=== PATIENT | male | born 1960 | race Caucasian/White ===

== ENCOUNTER → 2018-07-28 | Outpatient (CLI) | payer BC ==
[~2018-07-28] MED LIST: CELE100C PO; DILT180C4 PO; GABA-585 PO; HYDR-2802 PO; MULT1TAB97 PO; TRAM50TA PO
--- NOTE | 2018-07-28 15:50 | KCIC ---
Bilateral lower extremity arterial Doppler dated 07/28/2018. No comparison available. CLINICAL INDICATION: Peripheral vascular disease and leg cramping. Hypertension. Tobacco use. FINDINGS: Grayscale, color-flow and spectral waveform analysis performed to include the arterial tree of both lower extremity. On the right, there is monophasic flow throughout the common femoral artery to the arteries of the right calf. Velocity measurements are somewhat diminished. No focal stenosis is visualized. Tardus parvus flow within the right peroneal artery and right dorsalis pedis. There is diffuse atherosclerotic plaquing. On the left, there is triphasic flow of the common femoral artery and profundus femoris. Biphasic flow at the proximal superficial femoral artery with mild velocity elevation of 190 cm/s. Monophasic flow within the mid to distal superficial femoral artery, popliteal artery and arteries of the left calf. Diffuse atherosclerotic plaquing. IMPRESSION: 1. Monophasic flow throughout the right lower extremity arterial tree with tardus parvus flow in the dorsalis pedis and peroneal arteries of the right calf. This could be related to severe diffuse disease, although a inflow stenosis near the right common iliac artery or external iliac artery is not excluded. If indicated, CT would better evaluate. 2. Monophasic flow within the mid left superficial femoral artery through the calf arteries on the left, consistent with diffuse distal disease. There is mild velocity elevation at the proximal superficial femoral artery which could relate to a focal [id number] grade stenosis. Electronically signed by: Jaciel Louis MD (07/28/2018 3:47 PM) [id number]
== END | disposition home or self-care (01) ==
LOC: KCIC US 14:47
PROVIDERS: ATTEND Family Medicine
DX: I70.293 Other atherosclerosis of native arteries of extremities, bilateral legs (principal); I73.89 Other specified peripheral vascular diseases; I10 Essential (primary) hypertension; F17.200 Nicotine dependence, unspecified, uncomplicated
CPT/HCPCS: 93925

== ENCOUNTER 2019-01-28 21:13 | Inpatient (IN) | payer BC ==
[~2019-01-28] VITALS: Ht 180.3 cm; Wt 79.4 kg
[~2019-01-28 21:13] MED LIST changes: +ASPI81TA50 PO; +CLOP75TA PO; +ESOM40CA PO; +INSU100I13 SQ; +LACT1CAP2 PO; +MELO15TA23 PO
[2019-01-28 22:45] VITALS: BP 148/81
--- NOTE | 2019-01-28 22:45 | NUR ---
Patient admitted from [facility] ER to room 436 via ambulance cart. Admitting diagnosis: abdominal mass(fluid filled). Patient stated he thought he pulled a muscle at work. Patient c/o abdominal pain for 1 week. Mass on abdominal wall getting larger. Increase in pain noted. Patient had a CT Scan of abdomen today and CT Scan was positive for fluid filled mass. Mass can be palpated and is painful. Consult with Dr. Cole ordered. Will continue to monitor.
[2019-01-29] MEDS ORDERED: MULT-154 PO (00:04)
[2019-01-29] MEDS ORDERED: DILT240C33 PO (00:04)
[2019-01-29] MEDS ORDERED: VARE1TAB21 PO (00:04)
[2019-01-29] MEDS ORDERED: TRAM50TA PO (00:04)
[2019-01-29] MEDS ORDERED: IBUP-1060 PO (00:04)
[2019-01-29] MEDS: IV NORMAL SALINE 1000ML BAG 1,000 ML IV SCH ×2 (01:16→15:20)
[2019-01-29] MEDS: HYDROcodone/APAP 5/325MG 1 TAB TABLET PO PRN ×5 (01:17→23:06)
[2019-01-29] MEDS ORDERED: INFLUENZA VAX SCREEN BY RX. MC PRN (02:00)
[2019-01-29 03:00] VITALS: BP 143/72
[2019-01-29 07:00] VITALS: BP 134/70
[2019-01-29] MEDS ORDERED: PANTOPRAZOLE 40 MG TABLET.DR. PO SCH (07:30)
[2019-01-29] MEDS ORDERED: ASPIRIN ENTERIC COATED 81 MG TABLET.DR. PO SCH (08:00)
[2019-01-29] MEDS ORDERED: FLU VAX QS 2019-20 (36MOS+)/PF 0.5 ML SYRINGE. VAX IM ONE (09:00)
[2019-01-29] MEDS ORDERED: MELOXICAM 7.5 MG TABLET PO SCH (09:00)
[2019-01-29] MEDS ORDERED: CLOPIDOGREL BISULFATE 75 MG TABLET PO SCH (09:00)
[2019-01-29 11:00] VITALS: BP 145/77
[2019-01-29] MEDS ORDERED: traMADol 50 MG TABLET PO PRN (11:00)
--- NOTE | 2019-01-29 11:41 | PDOC2 ---
CONSULT Date of Consult Date of Consult DATE: 01/29/19 TIME: 11:36 Reason for Consult Reason for Consult: abd mass Referring Physician Referring Physician: Dr. Alejandro Identification/Chief Complaint Chief Complaint abd pain and mass Source Source: Chart review, Patient History of Present Illness Reason for Visit: 58 yo M with c/o 1 week hx of epigastric mass, after lifting something heavy at work. Pt notes pain in the area, but otherwise doing OK. Past Medical History Cardiovascular: HTN Pulmonary: COPD CENTRAL NERVOUS SYSTEM: TIA GI: Diverticulosis, GERD, Other (pancreatitis with stent) Hepatobiliary: Cholelithiasis, Other Psych: Other Musculoskeletal: Osteoarthritis Rheumatologic: No pertinent hx Infectious disease: No pertinent hx Renal/: No pertinent hx Endocrine: Diabetes Past Surgical History Past Surgical History: Cholecystectomy, Total hip replacement, Total knee replacement, Other Family History Family History: Hypertension Social History <1 pack per day ALCOHOL: heavy Drugs: None Lives: with Family Current Medications Current Medications Current Medications Acetaminophen/ Hydrocodone Bitart (Lortab 5/325) 1 tab PRN Q4HRS PRN PO MODERATE-SEVERE PAIN Last administered on 01/29/19at 10:20; Start 01/28/19 at 23:45 Sodium Chloride 1,000 ml @ 75 mls/hr [id number] IV Last administered on 01/29/19at 01:16; Start 01/28/19 at 23:45 Aspirin (Ecotrin) 81 mg DAILYWBKFT PO ; Start 01/29/19 at 08:00; Stop 01/29/19 at 00:09; Status DC Clopidogrel Bisulfate (Plavix) 75 mg DAILY PO ; Start 01/29/19 at 09:00; Stop 01/29/19 at 00:09; Status DC Pantoprazole Sodium (Protonix) 40 mg DAILYAC PO ; Start 01/29/19 at 07:30; Stop 01/29/19 at 00:09; Status DC Meloxicam (Mobic) 15 mg DAILY PO ; Start 01/29/19 at 09:00; Stop 01/29/19 at 00:09; Status DC Info (FLU VACCINE SCREEN per RX) 1 each PRN 1X PRN MC SEE COMMENTS; Start 01/29/19 at 02:00; Status UNV Influenza Virus Vaccine Quadrival (Afluria Quad 2019-20 (3yr Up) Syringe) 0.5 ml ONCE ONCE VAX IM Last administered on 01/29/19at 09:07; Start 01/29/19 at 09:00; Stop 01/29/19 at 09:01; Status DC Diltiazem HCl (Cardizem 24hr Cd) 240 mg DAILY PO ; Start 01/29/19 at 12:00 Tramadol HCl (Ultram) 50 mg PRN Q6HRS PRN PO MILD PAIN 1-3; Start 01/29/19 at 11:00 Multivitamins (Thera M Plus) 1 tab DAILY PO ; Start 01/29/19 at 12:00 Active Scripts Active Reported One-A-Day Essential (Multivitamin) 1 Each Tablet 1 Tab PO DAILY 30 Days Tramadol Hcl 50 Mg Tablet 50 Mg PO Q6HRS PRN Ibuprofen 800 Mg Tablet 800 Mg PO PRN Q6HRS PRN Diltiazem 24Hr Cd (Diltiazem HCl) 240 Mg Cap.er.24h 1 Cap PO DAILY 30 Days Chantix (Varenicline Tartrate) 1 Mg Tablet 1 Mg PO BID Lantus Solostar (Insulin Glargine,Hum.rec.anlog) 100 Unit/1 Ml Insuln.pen 20 Unit SQ DAILY Aspir-Low (Aspirin) 81 Mg Tablet.dr 1 Tab PO DAILY Nexium Capsule (Esomeprazole Magnesium) 40 Mg Capsule.dr 1 Cap PO DAILY Clopidogrel (Clopidogrel Bisulfate) 75 Mg Tablet 1 Tab PO DAILY Meloxicam 15 Mg Tablet 1 Tab PO DAILY Allergies Allergies: Coded Allergies: lisinopril (Verified Allergy, Intermediate, 09/17/18) ROS Gastrointestinal: Yes Abdominal Pain Physical Exam General: Alert, Oriented X3, Cooperative, No acute distress HEENT: Atraumatic Abdomen: Other (well healed incision, fullness supraumbilical) Extremities: No clubbing, No cyanosis Skin: No rashes, No breakdown Neuro: Normal speech, Sensation intact Psych/Mental Status: Mental status NL, Mood NL Vitals VITALS Vital Signs Date Time Temp Pulse Resp B/P (MAP) Pulse Ox O2 Delivery O2 Flow Rate FiO2 01/29/19 11:00 98.2 89 18 145/77 (99) 95 Room Air 98.2 Labs Labs Laboratory Tests Test 01/29/19 07:41 01/29/19 11:07 Glucose (Fingerstick) 76 mg/dL (70-99) 116 mg/dL (70-99) Laboratory Tests Test 01/29/19 07:41 01/29/19 11:07 Glucose (Fingerstick) 76 mg/dL (70-99) 116 mg/dL (70-99) Images Images Unable to review diagnostic imaging report. Verbally reported at abd mass. Assessment/Plan Assessment/Plan abd mass pt with hx of complicated cholecystitis, s/p lap cholecystectomy with cholangiogram. Pt with hx of pancreatitis with multiple pseudocyst and complicated pancreatitis, suspect secondary to Etoh. 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 Hx would be concerning for hernia. Will repeat CT for accurate reading and planning. Thanks for consult! JODIE RUIZ MD Jan 29, 2019 11:41
--- NOTE | 2019-01-29 13:15 | HP ---
ADMIT DATE: 01/28/2019 HISTORY OF PRESENT ILLNESS: The patient is a 58-year-old male patient who presented to the Emergency Room of [facility] yesterday as apparently he has been complaining of worsening abdominal pain for the past week and half. He was lifting, felt a strain in the rib a week and half ago. He was doing better until over the last weekend when he had to go back to work and was lifting and moving again. Over the past several days, he has noted a lump in his abdomen that has been increasing in size. He saw his primary care physician, apparently had a CT scan performed, diagnostic imaging by [facility], which showed that he had big fluid filled mass that was 4 x 10 x 6 and 3 x 6 x 5 going into the abdominal wall that could be biliary leak. He was evaluated in the Emergency Room and was basically transferred to [facility] with possible bile leak as he has undergone laparoscopic cholecystectomy about 4 months ago. The patient denied any nausea or vomiting. Denied any diarrhea or constipation. Denied any trauma or fall. PAST MEDICAL HISTORY: Significant for type 2 diabetes, hypertension, and chronic obstructive pulmonary disease. PAST SURGICAL HISTORY: Significant for laparoscopic cholecystectomy, reconstruction of the right knee joint. He has also a right total hip arthroplasty and right biceps tendon attachment. ALLERGIES: He is allergic to LISINOPRIL, he developed angioneurotic edema. MEDICATIONS: He is currently on following medications: He is on Chantix 1 tablet once a day. He is on Plavix 75 mg once a day, diltiazem 240 mg once a day, ibuprofen 800 mg every 2-4 hours a day, meloxicam 15 mg once a day, tramadol 50 mg once a day, Nexium 40 mg once a day. He is on Lantus insulin 20 units at bedtime, multivitamin 1 tablet once a day. FAMILY HISTORY: He has 1 younger brother who has muscular dystrophy, two sisters who are older and seemingly healthy. Father at the age of 78 because of metastatic cancer of unknown primary. Mother at the age of 72 after she survived breast cancer for 28 years and then it recurred and became metastatic. SOCIAL HISTORY: He is , has 3 sons and 1 daughter. He smokes 10 cigarettes a day. He drinks alcohol only on Sundays while watching football games, drinks about 6 cans of beer. He used to work for [employer] and now works for [employer]. REVIEW OF SYSTEMS: The patient denied any blurring of vision, cataract, glaucoma or macular degeneration. Denied any earache, tinnitus or sensorineural deafness. Denied any nosebleeds, stuffy nose or postnasal drip. Denied any sore throat, sore tongue, toothache, hoarseness of voice or difficulty swallowing. Denied any nausea or vomiting. Did complain of abdominal pain. Denied any diarrhea or constipation. Denied any hematemesis, melena or hematochezia. Denied any dysuria, frequency or hematuria. Denied any chest pain, shortness of breath, orthopnea, paroxysmal nocturnal dyspnea. Denied any cough, phlegm or hemoptysis. PHYSICAL EXAMINATION: GENERAL: On arrival to the Emergency Room, he looked well and was clearly in no apparent respiratory distress, slightly pale, not jaundiced, cyanosis or thyromegaly. No jugular venous distention or limb edema. VITAL SIGNS: His heart rate was 67, blood pressure was 140/70, temperature 98.2, respiratory rate 20, and oxygen saturation was 96% on room air. HEAD, EYES, EARS, NOSE AND THROAT: Showed normocephalic, atraumatic. NECK: Supple. HEART: Showed normal first and second heart sounds. No gallop or murmur. CHEST: Clear to auscultation. No crepitation or rhonchi. ABDOMEN: Slightly distended with palpable tenderness in the epigastric area. There is no overlying redness, not fluctuant. There is no guarding or rigidity. Bowel sounds are normal. NEUROLOGIC: He is awake, alert, responding appropriately. All cranial nerves intact. EXTREMITIES: He moves extremities without difficulty. He ambulates without assistance or assistive devices. LABORATORY AND DIAGNOSTIC DATA: His lab work showed a white cell count 12,700, hemoglobin 9.3, hematocrit 28, MCV 91, and platelet count of 509,000. His chemistry showed a serum sodium 134, potassium 3.7, chloride 98, bicarbonate 24, anion gap of 12, BUN 15, creatinine 0.8, estimated GFR was 99 mL per minute, his glucose 114, calcium was 9.1, magnesium was 1.6. Total bilirubin, AST, ALT, alkaline phosphatase were normal. Total protein 7.4, albumin was 2.8. His prothrombin time was 10.4, INR 1, aPTT was 37. IMPRESSION AND PLAN: He apparently had a CT scan done, which showed a mass that is consistent with probably bile leak. The patient was transferred to [facility] to consult the surgical team and was continued on all his medication. AUSTIN ESPINOZA MD DR: ANAHY/niranjan JOB#: [id number] / [id number]
[2019-01-29 15:00] VITALS: BP 170/76
[2019-01-29] MEDS ORDERED: IOHEXOL 240 MG/ML 50ML VIAL. PO ONE (15:00)
[2019-01-29] MEDS ORDERED: CONTRAST GIVEN. MC PRN (15:00)
[2019-01-29] MEDS ORDERED: IOHEXOL 300 MG/ML 100ML VIAL. IV ONE (15:00)
[2019-01-29 15:20] LABS: CALCIUM 8.8 mg/dL (8.5-10.1); CREATININE 0.7 mg/dL (0.7-1.3); GFR 115.8
[2019-01-29] MEDS: MORPHINE SULFATE 4 MG/ML VIAL. IV PRN ×2 (15:20→19:45)
[2019-01-29] MEDS: NICOTINE 14MG PATCH. TD SCH (15:21)
--- NOTE | 2019-01-29 17:01 | RAD ---
Exam performed: CT abdomen and pelvis with contrast HISTORY: Abdominal mass. DATE OF SERVICE: 01/29/2019. COMPARISON: CT abdomen and pelvis from September 15, 2018. TECHNIQUE: Contiguous helical acquisitions are obtained through the abdomen and pelvis during intravenous administration of 75 cc of Omnipaque 300. Sagittal and coronal reformatted images are obtained and reviewed. Findings: Minimal bibasilar atelectasis. The visualized heart is normal. Liver and spleen appear normal. Cholecystectomy. Diffuse pancreatic calcification consistent with known chronic calcific pancreatitis. There is a cystic lesion in the region of pancreatic head, unchanged since prior exams. No peripancreatic inflammatory changes are seen. Biliary and pancreatic stents redemonstrated. There is development of a fluid collection inferior to the liver which herniates through a defect in the anterior abdominal wall. The exact size of this collection is difficult to measure, however measures to the order of 8.8 cm transverse by 6.2 cm AP x6.0 cm cranial caudal dimension. Diffuse thickening of the stomach appiah noted. Both adrenal glands and bilateral kidneys are normal in size with symmetric excretion of contrast via both kidneys. Small and large bowel loops are nondilated and unremarkable. Appendix is contrast-filled. Urinary bladder is distended. Sigmoid diverticulosis. Streak artifact emanating from right hip arthroplasty. Prostatomegaly with calcifications. No pelvic fluid collection is seen. Spondylotic changes with grade 1 anterolisthesis of L4 over L5. Degenerative disease at L5-S1. IMPRESSION: Findings consistent with chronic calcific pancreatitis redemonstrated with biliary and pancreatic stent in place. Cystic mass in relation to the pancreatic tail consistent with a pancreatic pseudocyst is unchanged. Interval development of a fluid collection in the infrahepatic region which herniates through the abdominal wall defect, perhaps a new pseudocyst . Sigmoid diverticulosis without acute diverticulitis. PQRS Compliance Statement: One or more of the following individualized dose reduction techniques were utilized for this examination: 1. Automated exposure control 2. Adjustment of the mA and/or kV according to patient size 3. Use of iterative reconstruction technique Electronically signed by: Santa Martinez MD (01/29/2019 4:58 PM) [facility]
--- NOTE | 2019-01-29 17:18 | NUR ---
Dr. Cole notified of CT abd results, new diet orders received.
[2019-01-29] MEDS: MULTIVITAMIN with MINERAL TABLET. PO SCH (17:27)
[2019-01-29 19:25] VITALS: BP 135/78
[2019-01-29 23:25] VITALS: BP 156/75
[2019-01-30] MEDS: MORPHINE SULFATE 4 MG/ML VIAL. IV PRN ×3 (02:47→14:56)
[2019-01-30] MEDS: IV NORMAL SALINE 1000ML BAG 1,000 ML IV SCH ×2 (02:51→16:01)
[2019-01-30 03:13] VITALS: BP 154/77
[2019-01-30] MEDS: HYDROcodone/APAP 5/325MG 1 TAB TABLET PO PRN ×2 (05:06→11:04)
[2019-01-30 05:13] LABS: HEMATOCRIT 30.6 % (39.0-53.0); RED BLOOD COUNT 3.43 x10^6/uL (4.30-5.70); RED CELL DISTRIBUTION WIDTH 16.1 % (11.5-14.5); WHITE BLOOD COUNT 12.9 x10^3/uL (4.0-11.0)
[2019-01-30 05:53] LABS: ALBUMIN 2.6 g/dL (3.4-5.0); ALBUMIN/GLOBULIN RATIO 0.5 (1.0-1.7); CALCIUM 8.9 mg/dL (8.5-10.1); CREATININE 0.8 mg/dL (0.7-1.3); GFR 99.3; POTASSIUM 4.1 mmol/L (3.5-5.1); TOTAL BILIRUBIN 0.4 mg/dL (0.2-1.0)
[2019-01-30 07:29] VITALS: BP 160/76
[2019-01-30] MEDS: MULTIVITAMIN with MINERAL TABLET. PO SCH (08:52)
[2019-01-30] MEDS: NICOTINE 14MG PATCH. TD SCH (08:52)
[2019-01-30 11:00] VITALS: BP 152/79
--- NOTE | 2019-01-30 12:51 | PN ---
DATE: 01/30/2019 SUBJECTIVE: The patient is resting, sitting, propped up in bed, having his clear liquid breakfast. On questioning him, continued to complain of pain. His CT scan of the abdomen and pelvis showed that he has a finding consistent with chronic calcific pancreatitis demonstrated with biliary and pancreatic stents in place, a cystic mass in relation to the pancreatic tail consistent with pancreatic pseudocyst is unchanged. Interval development of fluid collection in the intrahepatic region which herniates through the abdominal wall defect but had some new pseudocysts, sigmoid diverticulosis without acute diverticulitis. PHYSICAL EXAMINATION: GENERAL: When I examined him today, he was sitting, propped up in bed in no apparent distress. No pallor, jaundice, cyanosis, or thyromegaly. No jugular venous distention. No lower limb edema. VITAL SIGNS: His heart rate was 84, blood pressure was 160/76, temperature was 98.4, respiratory rate 20, and oxygen saturation was 93% on room air. HEAD, EYES, EARS, NOSE, AND THROAT: Normocephalic, atraumatic. NECK: Supple. HEART: Showed normal first and second heart sounds. No gallop or murmur. CHEST: Shows central trachea, equal bilateral expansion, air entry, vesicular breath sounds. No crepitation or rhonchi. ABDOMEN: Distended with a palpable mass that is tender in the epigastric area. There is no overlying erythema. There is no tenderness in the rest of the abdomen. Bowel sounds are normal. NEUROLOGIC: He is awake, alert, responding appropriately. All cranial nerves intact. He moves extremities without difficulty. LABORATORY DATA: As of this morning showed a white cell count 12,900, hemoglobin 10, hematocrit 30, MCV 89, and platelet count 545,000. Serum sodium was 135, potassium 4.1, chloride 97, bicarbonate 29, anion gap of 9, BUN 7, creatinine 0.8, estimated GFR was 99 mL per minute, his glucose was 128, calcium was 8.9. Total bilirubin, AST, ALT, alkaline phosphatase were normal. Total protein was 8, albumin was 2.6. ASSESSMENT: 1. Abdominal pain with a palpable mass with a CT scan showing that there is a mass in the intrahepatic area herniating through the defect in the abdominal wall but the radiologist's impression is that another pseudocyst, has chronic pancreatitis with pseudocyst in the pancreatic tail. 2. Other medical problems include: A. Type 2 diabetes. B. Hypertension. C. Chronic obstructive pulmonary disease. Apparently, the patient has biliary and pancreatic stents. PLAN: To continue with his current medication. Continue with pain management, antiemetic, and nicotine patch for nicotine dependence. His white cell count was high. I do not know whether this is an infected cyst, and I will discuss with Dr. Cole whether interventional radiology aspiration of the mass and/or consulting Infectious Disease is warranted. AUSTIN ESPINOZA MD DR: ANAHY/niranjan JOB#: [id number] / [id number]
--- NOTE | 2019-01-30 13:51 | PDOC ---
SURGICAL PROGRESS NOTE Subjective Pt with c/o mild pain intermittently, mary ellen PO Vital Signs Vital Signs Date Time Temp Pulse Resp B/P (MAP) Pulse Ox O2 Delivery O2 Flow Rate FiO2 01/30/19 11:04 Room Air 01/30/19 11:00 98.3 84 20 152/79 (103) 96 98.3 I&O Intake and Output 01/30/19 07:00 Intake Total 840 ml Balance 840 ml Intake Oral 840 ml # Voids 3 General: Alert, Oriented X3, Cooperative, No acute distress Abdomen: Other (palpable, mobile mass epigatric) Labs Laboratory Tests Test 01/29/19 07:41 01/29/19 11:07 01/29/19 14:55 01/29/19 16:19 Glucose (Fingerstick) 76 mg/dL (70-99) 116 mg/dL (70-99) 100 mg/dL (70-99) Sodium Level 133 mmol/L (136-145) Potassium Level 4.0 mmol/L (3.5-5.1) Chloride Level 99 mmol/L (98-107) Carbon Dioxide Level 29 mmol/L (21-32) Anion Gap 5 (6-14) Blood Urea Nitrogen 8 mg/dL (8-26) Creatinine 0.7 mg/dL (0.7-1.3) Estimated GFR (Cockcroft-Gault) 115.8 Glucose Level 96 mg/dL (70-99) Calcium Level 8.8 mg/dL (8.5-10.1) Test 01/29/19 20:51 01/30/19 04:40 01/30/19 07:33 01/30/19 11:57 Glucose (Fingerstick) 143 mg/dL (70-99) 127 mg/dL (70-99) 135 mg/dL (70-99) White Blood Count 12.9 x10^3/uL (4.0-11.0) Red Blood Count 3.43 x10^6/uL (4.30-5.70) Hemoglobin 10.0 g/dL (13.0-17.5) Hematocrit 30.6 % (39.0-53.0) Mean Corpuscular Volume 89 fL (79-100) Mean Corpuscular Hemoglobin 29 pg (25-35) Mean Corpuscular Hemoglobin Concent 33 g/dL (31-37) Red Cell Distribution Width 16.1 % (11.5-14.5) Platelet Count 545 x10^3/uL (140-400) Sodium Level 135 mmol/L (136-145) Potassium Level 4.1 mmol/L (3.5-5.1) Chloride Level 97 mmol/L (98-107) Carbon Dioxide Level 29 mmol/L (21-32) Anion Gap 9 (6-14) Blood Urea Nitrogen 7 mg/dL (8-26) Creatinine 0.8 mg/dL (0.7-1.3) Estimated GFR (Cockcroft-Gault) 99.3 BUN/Creatinine Ratio 9 (6-20) Glucose Level 128 mg/dL (70-99) Calcium Level 8.9 mg/dL (8.5-10.1) Total Bilirubin 0.4 mg/dL (0.2-1.0) Aspartate Amino Transf (AST/SGOT) 16 U/L (15-37) Alanine Aminotransferase (ALT/SGPT) 13 U/L (16-63) Alkaline Phosphatase 79 U/L (46-116) Total Protein 8.0 g/dL (6.4-8.2) Albumin 2.6 g/dL (3.4-5.0) Albumin/Globulin Ratio 0.5 (1.0-1.7) Laboratory Tests Test 01/29/19 14:55 01/29/19 16:19 01/29/19 20:51 01/30/19 04:40 Sodium Level 133 mmol/L (136-145) 135 mmol/L (136-145) Potassium Level 4.0 mmol/L (3.5-5.1) 4.1 mmol/L (3.5-5.1) Chloride Level 99 mmol/L (98-107) 97 mmol/L (98-107) Carbon Dioxide Level 29 mmol/L (21-32) 29 mmol/L (21-32) Anion Gap 5 (6-14) 9 (6-14) Blood Urea Nitrogen 8 mg/dL (8-26) 7 mg/dL (8-26) Creatinine 0.7 mg/dL (0.7-1.3) 0.8 mg/dL (0.7-1.3) Estimated GFR (Cockcroft-Gault) 115.8 99.3 Glucose Level 96 mg/dL (70-99) 128 mg/dL (70-99) Calcium Level 8.8 mg/dL (8.5-10.1) 8.9 mg/dL (8.5-10.1) Glucose (Fingerstick) 100 mg/dL (70-99) 143 mg/dL (70-99) White Blood Count 12.9 x10^3/uL (4.0-11.0) Red Blood Count 3.43 x10^6/uL (4.30-5.70) Hemoglobin 10.0 g/dL (13.0-17.5) Hematocrit 30.6 % (39.0-53.0) Mean Corpuscular Volume 89 fL (79-100) Mean Corpuscular Hemoglobin 29 pg (25-35) Mean Corpuscular Hemoglobin Concent 33 g/dL (31-37) Red Cell Distribution Width 16.1 % (11.5-14.5) Platelet Count 545 x10^3/uL (140-400) BUN/Creatinine Ratio 9 (6-20) Total Bilirubin 0.4 mg/dL (0.2-1.0) Aspartate Amino Transf (AST/SGOT) 16 U/L (15-37) Alanine Aminotransferase (ALT/SGPT) 13 U/L (16-63) Alkaline Phosphatase 79 U/L (46-116) Total Protein 8.0 g/dL (6.4-8.2) Albumin 2.6 g/dL (3.4-5.0) Albumin/Globulin Ratio 0.5 (1.0-1.7) Test 01/30/19 07:33 01/30/19 11:57 Glucose (Fingerstick) 127 mg/dL (70-99) 135 mg/dL (70-99) I have reviewed the following Ct with multiple pseudocysts, with one eroding through abd wall Problem List pancreatitis pt is strongly encouraged to avoid Etoh will MRCP in AM to evaluate biliary system and stents will consult GI regarding pancreatitis and possible stent removal will ask IR to consider biopsy versus aspiration unlikely that surgical intervention would go well, given pancreatitis and pseudocyst recurrence rate. JODIE RUIZ MD Jan 30, 2019 13:51
[2019-01-30 15:00] VITALS: BP_SYST 107; BP_SYST 155; BP_DIAS 59; BP_DIAS 69
[2019-01-30] MEDS: HYDROmorphone 2 MG/ML VIAL IV PRN ×2 (16:01→19:46)
[2019-01-30 19:25] VITALS: BP 155/76
[2019-01-30 23:20] VITALS: BP 141/73
[2019-01-31] VITALS (11 sets, daily range): BP systolic 130–168; BP diastolic 61–77
[2019-01-31] MEDS: HYDROmorphone 2 MG/ML VIAL IV PRN ×7 (00:10→21:34)
[2019-01-31] MEDS: IV NORMAL SALINE 1000ML BAG 1,000 ML IV SCH ×2 (00:11→14:45)
[2019-01-31 07:09] LABS: HEMATOCRIT 28.4 % (39.0-53.0); HEMOGLOBIN 9.4 g/dL (13.0-17.5); RED BLOOD COUNT 3.2 x10^6/uL (4.30-5.70); RED CELL DISTRIBUTION WIDTH 15.8 % (11.5-14.5); WHITE BLOOD COUNT 14.8 x10^3/uL (4.0-11.0)
[2019-01-31 07:30] LABS: ALBUMIN 2.5 g/dL (3.4-5.0); ALBUMIN/GLOBULIN RATIO 0.5 (1.0-1.7); CALCIUM 8.6 mg/dL (8.5-10.1); CREATININE 0.6 mg/dL (0.7-1.3); GFR 138.4; POTASSIUM 3.8 mmol/L (3.5-5.1); TOTAL BILIRUBIN 0.4 mg/dL (0.2-1.0); TOTAL PROTEIN 7.5 g/dL (6.4-8.2)
--- NOTE | 2019-01-31 08:23 | PN ---
DATE: 01/31/2019 SUBJECTIVE: The patient is resting slightly propped up in bed, in no apparent distress, awake, alert, stated that his pain is much better controlled after we switched him to hydromorphone. Denied any nausea or vomiting. He is n.p.o. as he is scheduled for MRCP as well as ultrasound-guided aspiration of the abdominal abscess. PHYSICAL EXAMINATION: GENERAL: When I saw him this morning, he looked well and was clearly in no apparent respiratory distress, slightly pale, not jaundiced, cyanosed or thyromegaly. No jugular venous distention. No limb edema. VITAL SIGNS: His heart rate was 81, blood pressure 145/63, temperature was 99.1, respiratory rate was 18, and oxygen saturation was 92% on room air. HEAD, EYES, EARS, NOSE AND THROAT: Showed normocephalic, atraumatic. NECK: Supple. HEART: Showed normal first and second heart sounds with no gallop or murmur. CHEST: Clear to auscultation. No crepitation or rhonchi. ABDOMEN: Distended, soft, nontender with a mass in the epigastric area, it is tender to touch. NEUROLOGIC: He is awake, alert, responding appropriately. All cranial nerves are intact. He moves extremities without difficulty. His intake over the last 24 hours was 814. No output was recorded. LABORATORY DATA: His lab work this morning showed a white cell count 14,800; hemoglobin 9.4; hematocrit 28; MCV 89 and platelet count 540,000. Serum sodium 133, potassium 3.8, chloride 96, bicarbonate 28, anion gap of 9, BUN 8, creatinine 0.6, estimated GFR was 138 mL per minute. His glucose was 138, calcium was 8.6. Total bilirubin, AST, ALT, alkaline phosphatase were normal. His total protein 7.5, albumin was 2.5. ASSESSMENT: Abdominal pain and a palpable mass. The CT scan showing that there is a mass in the subhepatic area herniating through the defect in the abdominal wall. 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 Other medical problems include: A. Type 2 diabetes mellitus. B. Hypertension. C. Chronic obstructive pulmonary disease. D. The patient has pancreatic and biliary stents. E. Alcoholism. F. Continued nicotine use disorder. PLAN: Apparently, the patient is scheduled for an MRCP as well as perhaps ultrasound-guided aspiration of the abdominal abscess versus pseudocyst. AUSTIN ESPINOZA MD DR: ANAHY/niranjan JOB#: [id number] / [id number]
--- NOTE | 2019-01-31 08:31 | PDOC ---
Provider Note Provider Note IR NOTE Asked to see patient in regards to anterior abdominal wall and perihepatic fluid collections. CT shows a multiloculated collection anterior and inferior to the left liver, and falciform ligament extending into the anterior abdominal wall. The collection does not appear to be continguous with the pancreas. There are changes of chronic pancreatitis with atrophy, calcification, and a chronic appearing pseudocyst in the panc tail. A metallic biliary sent and a pancreatic stent are in place. Bili is normal. Alk phos is normal. WBC mildly elevated. Will plan on aspiration with analysis and culture of the fluid collection. If there is infection, drainage will be needed. LYNDA CERON MD Jan 31, 2019 08:31
--- NOTE | 2019-01-31 08:37 | PDOC ---
NIKOLAY DURAN ENVIRONMENTAL ENGINEERING INTERN 01/31/19 0837: SURGICAL PROGRESS NOTE Subjective some upper abd pain Vital Signs Vital Signs Date Time Temp Pulse Resp B/P (MAP) Pulse Ox O2 Delivery O2 Flow Rate FiO2 01/31/19 08:18 Room Air 01/31/19 04:56 20 92 01/31/19 03:11 99.1 81 145/63 (90) 99.1 I&O Intake and Output 01/31/19 07:00 Intake Total 240 ml Balance 240 ml Intake Oral 240 ml # Voids 2 General: Alert, Cooperative Abdomen: Soft, Other (ttp upper abd) Labs Laboratory Tests Test 01/29/19 11:07 01/29/19 14:55 01/29/19 16:19 01/29/19 20:51 Glucose (Fingerstick) 116 mg/dL (70-99) 100 mg/dL (70-99) 143 mg/dL (70-99) Sodium Level 133 mmol/L (136-145) Potassium Level 4.0 mmol/L (3.5-5.1) Chloride Level 99 mmol/L (98-107) Carbon Dioxide Level 29 mmol/L (21-32) Anion Gap 5 (6-14) Blood Urea Nitrogen 8 mg/dL (8-26) Creatinine 0.7 mg/dL (0.7-1.3) Estimated GFR (Cockcroft-Gault) 115.8 Glucose Level 96 mg/dL (70-99) Calcium Level 8.8 mg/dL (8.5-10.1) Test 01/30/19 04:40 01/30/19 07:33 01/30/19 11:57 01/30/19 16:53 White Blood Count 12.9 x10^3/uL (4.0-11.0) Red Blood Count 3.43 x10^6/uL (4.30-5.70) Hemoglobin 10.0 g/dL (13.0-17.5) Hematocrit 30.6 % (39.0-53.0) Mean Corpuscular Volume 89 fL (79-100) Mean Corpuscular Hemoglobin 29 pg (25-35) Mean Corpuscular Hemoglobin Concent 33 g/dL (31-37) Red Cell Distribution Width 16.1 % (11.5-14.5) Platelet Count 545 x10^3/uL (140-400) Sodium Level 135 mmol/L (136-145) Potassium Level 4.1 mmol/L (3.5-5.1) Chloride Level 97 mmol/L (98-107) Carbon Dioxide Level 29 mmol/L (21-32) Anion Gap 9 (6-14) Blood Urea Nitrogen 7 mg/dL (8-26) Creatinine 0.8 mg/dL (0.7-1.3) Estimated GFR (Cockcroft-Gault) 99.3 BUN/Creatinine Ratio 9 (6-20) Glucose Level 128 mg/dL (70-99) Calcium Level 8.9 mg/dL (8.5-10.1) Total Bilirubin 0.4 mg/dL (0.2-1.0) Aspartate Amino Transf (AST/SGOT) 16 U/L (15-37) Alanine Aminotransferase (ALT/SGPT) 13 U/L (16-63) Alkaline Phosphatase 79 U/L (46-116) Total Protein 8.0 g/dL (6.4-8.2) Albumin 2.6 g/dL (3.4-5.0) Albumin/Globulin Ratio 0.5 (1.0-1.7) Glucose (Fingerstick) 127 mg/dL (70-99) 135 mg/dL (70-99) 130 mg/dL (70-99) Test 01/30/19 20:45 01/31/19 06:20 01/31/19 07:30 Glucose (Fingerstick) 147 mg/dL (70-99) 136 mg/dL (70-99) White Blood Count 14.8 x10^3/uL (4.0-11.0) Red Blood Count 3.20 x10^6/uL (4.30-5.70) Hemoglobin 9.4 g/dL (13.0-17.5) Hematocrit 28.4 % (39.0-53.0) Mean Corpuscular Volume 89 fL (79-100) Mean Corpuscular Hemoglobin 29 pg (25-35) Mean Corpuscular Hemoglobin Concent 33 g/dL (31-37) Red Cell Distribution Width 15.8 % (11.5-14.5) Platelet Count 540 x10^3/uL (140-400) Sodium Level 133 mmol/L (136-145) Potassium Level 3.8 mmol/L (3.5-5.1) Chloride Level 96 mmol/L (98-107) Carbon Dioxide Level 28 mmol/L (21-32) Anion Gap 9 (6-14) Blood Urea Nitrogen 8 mg/dL (8-26) Creatinine 0.6 mg/dL (0.7-1.3) Estimated GFR (Cockcroft-Gault) 138.4 BUN/Creatinine Ratio 13 (6-20) Glucose Level 138 mg/dL (70-99) Calcium Level 8.6 mg/dL (8.5-10.1) Total Bilirubin 0.4 mg/dL (0.2-1.0) Aspartate Amino Transf (AST/SGOT) 18 U/L (15-37) Alanine Aminotransferase (ALT/SGPT) 17 U/L (16-63) Alkaline Phosphatase 76 U/L (46-116) Total Protein 7.5 g/dL (6.4-8.2) Albumin 2.5 g/dL (3.4-5.0) Albumin/Globulin Ratio 0.5 (1.0-1.7) Laboratory Tests Test 01/30/19 11:57 01/30/19 16:53 01/30/19 20:45 01/31/19 06:20 Glucose (Fingerstick) 135 mg/dL (70-99) 130 mg/dL (70-99) 147 mg/dL (70-99) White Blood Count 14.8 x10^3/uL (4.0-11.0) Red Blood Count 3.20 x10^6/uL (4.30-5.70) Hemoglobin 9.4 g/dL (13.0-17.5) Hematocrit 28.4 % (39.0-53.0) Mean Corpuscular Volume 89 fL (79-100) Mean Corpuscular Hemoglobin 29 pg (25-35) Mean Corpuscular Hemoglobin Concent 33 g/dL (31-37) Red Cell Distribution Width 15.8 % (11.5-14.5) Platelet Count 540 x10^3/uL (140-400) Sodium Level 133 mmol/L (136-145) Potassium Level 3.8 mmol/L (3.5-5.1) Chloride Level 96 mmol/L (98-107) Carbon Dioxide Level 28 mmol/L (21-32) Anion Gap 9 (6-14) Blood Urea Nitrogen 8 mg/dL (8-26) Creatinine 0.6 mg/dL (0.7-1.3) Estimated GFR (Cockcroft-Gault) 138.4 BUN/Creatinine Ratio 13 (6-20) Glucose Level 138 mg/dL (70-99) Calcium Level 8.6 mg/dL (8.5-10.1) Total Bilirubin 0.4 mg/dL (0.2-1.0) Aspartate Amino Transf (AST/SGOT) 18 U/L (15-37) Alanine Aminotransferase (ALT/SGPT) 17 U/L (16-63) Alkaline Phosphatase 76 U/L (46-116) Total Protein 7.5 g/dL (6.4-8.2) Albumin 2.5 g/dL (3.4-5.0) Albumin/Globulin Ratio 0.5 (1.0-1.7) Test 01/31/19 07:30 Glucose (Fingerstick) 136 mg/dL (70-99) Assessment/Plan MRPC, IR for aspiration/bx, GI consult JODIE RUIZ MD 01/31/19 1430: SURGICAL PROGRESS NOTE Problem List Pt seen and examined. Agree with Ms. Duran's note Pt with c/o mild pain, but otherwise doing well d/w IR, cancel MRCP, drainage with purulent material appreciate GI. NIKOLAY DURAN APRN Jan 31, 2019 08:37 JODIE RUIZ MD Jan 31, 2019 14:30
--- NOTE | 2019-01-31 10:06 | PDOC2 ---
GI CONSULT Reason For Consult: Pancreatitis HPI: HPI: 58 y/o male w/ upper abdominal discomfort and bloating w/ a knot. Began after lifting something heavy last week. Feels "superficial." Additional h/o pancreatitis - says first attack 10 years ago related to gallstones but didn't pursue cholecystectomy. Also has alcohol history - currently 12 pack of beer a week, probably heavier at times in the past. Can't remember why, but was sent to last year or early this year. They told him his pancreas was clogged and then he had two stents placed and had pseudocyst d rained. Last followed with them in 03/2018. Then underwent cholecystectomy w/ Dr. Cole in 09/2018 - op note mentions abscess and adhesions - cholecystitis and cholelithiasis on path. On CT here: chronic calcific pancreatitis, biliary and pancreatic stent in place, cystic mass in relation to the pancreatic tail (c/w pancreatic pseudocyst - unchanged), interval development of a fluid collection in the infrahepatic region which herniates through the abdominal wall defect (perhaps a new pseudocyst). Surgery is following - to have MRCP today. Additionally, IR following - reviewed note - plans for aspiration with analysis and culture of the fluid collection w/ possible drainage. Denies GERD but takes Nexium. No dysphagia, n/v, diarrhea, constipation, hematochezia, melena, and weight loss. Does not recall previous EGD. Has had two colonoscopies, last about 1 year ago - recalled as normal, maybe at [facility]? Denies liver and PUD history. Fatty liver noted on milagros op note and diverticulosis noted on CT. PMH: PMH: HTN, COPD, OA, DM right total hip replacement, right total knee replacement, right bicep repair FH: Family History: Cancer (father - spinal, mother - breast) Social History: Smoke: <1 pack per day ALCOHOL: heavy Drugs: None ROS: GEN: Denies fevers, chills, sweats HEENT: Denies blurred vision, sore throat CV: Denies chest pain RESP: Denies shortness of air, cough GI: Per HPI : Denies hematuria, dysuria ENDO: Denies weight changes NEURO: Denies confusion, dizziness MSK: Denies weakness, joint pain/swelling SKIN: Denies jaundice, pruritus Vitals: Vitals: Vital Signs Date Time Temp Pulse Resp B/P (MAP) Pulse Ox O2 Delivery O2 Flow Rate FiO2 01/31/19 09:46 Room Air 01/31/19 07:00 98.7 73 16 130/70 (90) 96 98.7 Labs: Labs: Laboratory Tests Test 01/30/19 11:57 01/30/19 16:53 01/30/19 20:45 01/31/19 06:20 Glucose (Fingerstick) 135 mg/dL (70-99) 130 mg/dL (70-99) 147 mg/dL (70-99) White Blood Count 14.8 x10^3/uL (4.0-11.0) Red Blood Count 3.20 x10^6/uL (4.30-5.70) Hemoglobin 9.4 g/dL (13.0-17.5) Hematocrit 28.4 % (39.0-53.0) Mean Corpuscular Volume 89 fL (79-100) Mean Corpuscular Hemoglobin 29 pg (25-35) Mean Corpuscular Hemoglobin Concent 33 g/dL (31-37) Red Cell Distribution Width 15.8 % (11.5-14.5) Platelet Count 540 x10^3/uL (140-400) Sodium Level 133 mmol/L (136-145) Potassium Level 3.8 mmol/L (3.5-5.1) Chloride Level 96 mmol/L (98-107) Carbon Dioxide Level 28 mmol/L (21-32) Anion Gap 9 (6-14) Blood Urea Nitrogen 8 mg/dL (8-26) Creatinine 0.6 mg/dL (0.7-1.3) Estimated GFR (Cockcroft-Gault) 138.4 BUN/Creatinine Ratio 13 (6-20) Glucose Level 138 mg/dL (70-99) Calcium Level 8.6 mg/dL (8.5-10.1) Total Bilirubin 0.4 mg/dL (0.2-1.0) Aspartate Amino Transf (AST/SGOT) 18 U/L (15-37) Alanine Aminotransferase (ALT/SGPT) 17 U/L (16-63) Alkaline Phosphatase 76 U/L (46-116) Total Protein 7.5 g/dL (6.4-8.2) Albumin 2.5 g/dL (3.4-5.0) Albumin/Globulin Ratio 0.5 (1.0-1.7) Test 01/31/19 07:30 Glucose (Fingerstick) 136 mg/dL (70-99) Allergies: Coded Allergies: lisinopril (Verified Allergy, Intermediate, 09/17/18) Medications: Current Medications Medications (Trade) Dose Ordered Sig/Emiliana Route PRN Reason Start Time Stop Time Status Last Admin Dose Admin Hydromorphone HCl (Dilaudid) 2 mg PRN Q3HRS PRN IV SEVERE PAIN 01/30/19 16:00 01/31/19 08:18 Imaging: Imaging: CT A/P w/ PO & IV contrast 01/29/19 Findings consistent with chronic calcific pancreatitis redemonstrated with biliary and pancreatic stent in place. Cystic mass in relation to the pancreatic tail consistent with a pancreatic pseudocyst is unchanged. Interval development of a fluid collection in the infrahepatic region which herniates through the abdominal wall defect, perhaps a new pseudocyst. Sigmoid diverticulosis without acute diverticulitis. PE: GEN: NAD HEENT: Atraumatic, PERRL LUNGS: CTAB HEART: RRR, ABD: NABS, S/ND, tender upper abd/epigastrium - firm knot here EXTREMITY: No edema SKIN: No rashes, no jaundice NEURO/PSYCH: A & O 3 A/P: A/P: Upper abd discomfort/fullness Leukocytosis, anemia H/o pancreatitis - h/o pseudocyst w/ drainage, biliary and pancreatic stents in place Abnormal CT - chronic calcific pancreatitis, unchanged cystic mass in relation to the pancreatic tail, fluid collection in the infrahepatic region which herniates through the abdominal wall defect S/p cholecystectomy ?GERD CRC screen - UTD Diverticulosis Fatty liver +tobacco +alcohol -- Imaging and IR plans as above, will follow. DEYA SHAFFER Jan 31, 2019 10:06
[2019-01-31 10:58] LABS: PROTHROMBIN TIME PATIENT 13.8 SEC (11.7-14.0)
[2019-01-31] MEDS: NICOTINE 14MG PATCH. TD SCH ×2 (11:07→21:28)
[2019-01-31] MEDS ORDERED: LIDOCAINE WITH 8.4% SOD BICARB 3 ML DISP.SYRIN. ONE (11:16)
--- NOTE | 2019-01-31 11:18 | NUR ---
Pt. down to IR via bed.
[2019-01-31] MEDS ORDERED: LIDOCAINE WITH 8.4% SOD BICARB 3 ML DISP.SYRIN. IJ ONE ×2 (11:45)
--- NOTE | 2019-01-31 13:12 | NUR ---
vascular lab contacted re: post procedure orders. Spoke with Janet, she stated she would speak with
--- NOTE | 2019-01-31 13:27 | NUR ---
Dr. Alejandro notfied of pt having drain placed per IR and color of drain output and inc of WBCs. Telephone orders received. Dr. hagen on the unit and notified of new consult.
[2019-01-31] MEDS: MULTIVITAMIN with MINERAL TABLET. PO SCH (13:53)
[2019-01-31] MEDS: PANTOPRAZOLE 40 MG TABLET.DR. PO SCH (13:53)
--- NOTE | 2019-01-31 14:05 | NUR ---
SW following for discharge planning. Discussed with RN, pt is from home, gets around indp. Pt having MRCP, fluid drainage, pending biopsy. GI following. SW will continue to follow for any discharge planning needs.
--- NOTE | 2019-01-31 14:33 | PDOC ---
Infectious Disease Note Vital Sign Vital Signs Vital Signs Date Time Temp Pulse Resp B/P (MAP) Pulse Ox O2 Delivery O2 Flow Rate FiO2 01/31/19 13:53 87 147/77 01/31/19 11:29 12 93 Room Air 01/31/19 11:00 99.2 99.2 Labs Lab Laboratory Tests Test 01/30/19 16:53 01/30/19 20:45 01/31/19 06:20 01/31/19 07:30 Glucose (Fingerstick) 130 mg/dL (70-99) 147 mg/dL (70-99) 136 mg/dL (70-99) White Blood Count 14.8 x10^3/uL (4.0-11.0) Red Blood Count 3.20 x10^6/uL (4.30-5.70) Hemoglobin 9.4 g/dL (13.0-17.5) Hematocrit 28.4 % (39.0-53.0) Mean Corpuscular Volume 89 fL (79-100) Mean Corpuscular Hemoglobin 29 pg (25-35) Mean Corpuscular Hemoglobin Concent 33 g/dL (31-37) Red Cell Distribution Width 15.8 % (11.5-14.5) Platelet Count 540 x10^3/uL (140-400) Sodium Level 133 mmol/L (136-145) Potassium Level 3.8 mmol/L (3.5-5.1) Chloride Level 96 mmol/L (98-107) Carbon Dioxide Level 28 mmol/L (21-32) Anion Gap 9 (6-14) Blood Urea Nitrogen 8 mg/dL (8-26) Creatinine 0.6 mg/dL (0.7-1.3) Estimated GFR (Cockcroft-Gault) 138.4 BUN/Creatinine Ratio 13 (6-20) Glucose Level 138 mg/dL (70-99) Calcium Level 8.6 mg/dL (8.5-10.1) Iron Level 7 ug/dL (65-175) Total Iron Binding Capacity 157 ug/dL (250-450) Iron Saturation 4 % (15-34) Total Bilirubin 0.4 mg/dL (0.2-1.0) Aspartate Amino Transf (AST/SGOT) 18 U/L (15-37) Alanine Aminotransferase (ALT/SGPT) 17 U/L (16-63) Alkaline Phosphatase 76 U/L (46-116) Total Protein 7.5 g/dL (6.4-8.2) Albumin 2.5 g/dL (3.4-5.0) Albumin/Globulin Ratio 0.5 (1.0-1.7) Vitamin B12 Level 593 pg/mL (247-911) Test 01/31/19 10:15 01/31/19 10:58 Prothrombin Time 13.8 SEC (11.7-14.0) Prothromb Time International Ratio 1.1 (0.8-1.1) Glucose (Fingerstick) 118 mg/dL (70-99) Micro Minimal bibasilar atelectasis. The visualized heart is normal. Liver and spleen appear normal. Cholecystectomy. Diffuse pancreatic calcification consistent with known chronic calcific pancreatitis. There is a cystic lesion in the region of pancreatic head, unchanged since prior exams. No peripancreatic inflammatory changes are seen. Biliary and pancreatic stents redemonstrated. There is development of a fluid collection inferior to the liver which herniates through a defect in the anterior abdominal wall. The exact size of this collection is difficult to measure, however measures to the order of 8.8 cm transverse by 6.2 cm AP x6.0 cm cranial caudal dimension. Diffuse thickening of the stomach appiah noted. Both adrenal glands and bilateral kidneys are normal in size with symmetric excretion of contrast via both kidneys. Small and large bowel loops are nondilated and unremarkable. Appendix is contrast-filled. Urinary bladder is distended. Sigmoid diverticulosis. Streak artifact emanating from right hip arthroplasty. Prostatomegaly with calcifications. No pelvic fluid collection is seen. Spondylotic changes with grade 1 anterolisthesis of L4 over L5. Degenerative disease at L5-S1. IMPRESSION: Findings consistent with chronic calcific pancreatitis redemonstrated with biliary and pancreatic stent in place. Cystic mass in relation to the pancreatic tail consistent with a pancreatic pseudocyst is unchanged. Interval development of a fluid collection in the infrahepatic region which herniates through the abdominal wall defect, perhaps a new pseudocyst . Sigmoid diverticulosis without acute diverticulitis. Objective Assessment Abd fluid collection Leukocytosis H/o Pancreatitis with stent Tobacco abuse Plan Plan of Care Post drain and cults pending - add Meropenem F/u labs and cults Thank you # [id number] JUAN MARSH MD Jan 31, 2019 14:33
[2019-01-31] MEDS: MEROPENEM 500 MG in IV NORMAL SALINE 50ML 50 ML IV SCH ×2 (14:43→18:01)
--- NOTE | 2019-01-31 15:58 | CONS ---
DATE OF CONSULTATION: 01/31/2019 LOCATION: The patient's room 436. REQUESTING PHYSICIAN: Dr. Low Alejandro. REASON FOR CONSULTATION: Questionable abdominal abscess. HISTORY OF PRESENT ILLNESS: The patient is a pleasant 58-year-old gentleman over the summer had an acute cholecystitis and that was removed. He does have a history of pancreatitis, had stents in place. He states about 10 days ago when he was working at [employer], he lifts something heavy and then felt a pop in his lower abdominal area. Went and saw his primary care physician after became a little uncomfortable. He felt fatigued, had decreased appetite, but no fevers, chills, or sweats. A CAT scan was ordered, but did not get performed until Thursday last week. He was found to have an abnormal fluid collection. He was admitted to [facility]. Today, he was taken down to Interventional Radiology, underwent a drain placement. He has not been on any antimicrobials since his admission. White blood cell count was 12.9, but today it was 14.8. Currently, he is sitting upright in bed, a little bit uncomfortable. He has no headaches, sinus issues, sore throat, cough or chest pain. No nausea, vomiting, or diarrhea. No dysuria, frequency, or urgency. No constipation, no blood in the stool. Denies any trauma. PAST MEDICAL HISTORY: Positive for acute cholecystitis, history of pancreatitis, history of TIA. PAST SURGICAL HISTORY: Positive for pancreatic stent, bile duct stent as well as a cholecystectomy. REVIEW OF SYSTEMS: Otherwise negative. ALLERGIES: LISINOPRIL. SOCIAL HISTORY: He has a dog at home. He is a smoker, positive alcohol. FAMILY HISTORY: Noncontributory. CURRENT MEDICATIONS: Include Cardizem, nicotine patch, Protonix, tramadol. Other p.r.n. meds reviewed in the chart. PHYSICAL EXAMINATION: VITAL SIGNS: Temperature 99.9, pulse 87, respirations 12, blood pressure 147/77, satting 93% on room air. CONSTITUTIONAL: He is pleasant, cooperative, in no acute distress. He wears glasses. HEENT: Pupils equal and reactive. Normal conjunctivae. Oral cavity, pharynx is clear. NECK: Supple, no JVD. LUNGS: Clear to auscultation. HEART: S1, S2. ABDOMEN: Has a drain in the left mid and lower area, does appear to have some purulent material. Has decreased bowel sounds, mild distention, no guarding. EXTREMITIES: No clubbing, cyanosis or gross edema. SKIN: Warm to touch without signs of rash. NEUROLOGIC: He is nonfocal and appropriate. PSYCHIATRIC: Affect is appropriate. LABORATORY DATA: White count 14.8, hemoglobin 9.4, platelets of 540. Glucose is 118 recently, also on fingerstick. Creatinine is 0.6. Normal liver function study tests. Cultures are pending. Abdomen and pelvis showed development of fluid collection inferior to the liver, which herniates through a defect in the anterior abdominal wall, measured 8 x 6.2 x 6 cm. IMPRESSION: 1. Abdominal fluid collection. 2. Leukocytosis. 3. History of pancreatitis with stent. 4. Tobacco abuse. RECOMMENDATIONS: He is now post-drain. Cultures are pending. We will add meropenem. Follow up labs and cultures. Should you have any further questions, please do not hesitate to contact me. JUAN MARSH MD DR: [email or web address]/niranjan JOB#: [id number] / [id number]
[2019-02-01] MEDS: MEROPENEM 500 MG in IV NORMAL SALINE 50ML 50 ML IV SCH ×5 (00:02→23:58)
[2019-02-01] MEDS: HYDROmorphone 2 MG/ML VIAL IV PRN ×6 (01:43→21:21)
[2019-02-01 03:00] VITALS: BP 140/71
[2019-02-01 07:00] VITALS: BP 136/60
[2019-02-01 07:09] LABS: HEMATOCRIT 26.1 % (39.0-53.0); HEMOGLOBIN 8.6 g/dL (13.0-17.5); RED BLOOD COUNT 2.95 x10^6/uL (4.30-5.70); RED CELL DISTRIBUTION WIDTH 15.9 % (11.5-14.5); WHITE BLOOD COUNT 11.7 x10^3/uL (4.0-11.0)
[2019-02-01 07:39] LABS: CALCIUM 8.6 mg/dL (8.5-10.1); CREATININE 0.6 mg/dL (0.7-1.3); GFR 138.4; POTASSIUM 3.5 mmol/L (3.5-5.1)
[2019-02-01] MEDS: IV NORMAL SALINE 1000ML BAG 1,000 ML IV SCH ×2 (07:53→22:34)
[2019-02-01] MEDS: MULTIVITAMIN with MINERAL TABLET. PO SCH (07:53)
[2019-02-01] MEDS: PANTOPRAZOLE 40 MG TABLET.DR. PO SCH (07:53)
--- NOTE | 2019-02-01 08:29 | PDOC ---
NIKOLAY DURAN RN TEAM LEADER 02/01/19 0829: SURGICAL PROGRESS NOTE Subjective no complaints mild pain no n/v Vital Signs Vital Signs Date Time Temp Pulse Resp B/P (MAP) Pulse Ox O2 Delivery O2 Flow Rate FiO2 02/01/19 07:53 136/60 02/01/19 07:00 98.4 65 18 91 Room Air 98.4 I&O Intake and Output 02/01/19 07:00 Intake Total 2760 ml Balance 2760 ml Intake Oral 960 ml IV Total 900 ml Other 900 ml # Voids 5 General: Alert, Oriented X3, Cooperative Abdomen: Soft, Other (drain purulent drainage) Labs Laboratory Tests Test 01/30/19 11:57 01/30/19 16:53 01/30/19 20:45 01/31/19 06:20 Glucose (Fingerstick) 135 mg/dL (70-99) 130 mg/dL (70-99) 147 mg/dL (70-99) White Blood Count 14.8 x10^3/uL (4.0-11.0) Red Blood Count 3.20 x10^6/uL (4.30-5.70) Hemoglobin 9.4 g/dL (13.0-17.5) Hematocrit 28.4 % (39.0-53.0) Mean Corpuscular Volume 89 fL (79-100) Mean Corpuscular Hemoglobin 29 pg (25-35) Mean Corpuscular Hemoglobin Concent 33 g/dL (31-37) Red Cell Distribution Width 15.8 % (11.5-14.5) Platelet Count 540 x10^3/uL (140-400) Sodium Level 133 mmol/L (136-145) Potassium Level 3.8 mmol/L (3.5-5.1) Chloride Level 96 mmol/L (98-107) Carbon Dioxide Level 28 mmol/L (21-32) Anion Gap 9 (6-14) Blood Urea Nitrogen 8 mg/dL (8-26) Creatinine 0.6 mg/dL (0.7-1.3) Estimated GFR (Cockcroft-Gault) 138.4 BUN/Creatinine Ratio 13 (6-20) Glucose Level 138 mg/dL (70-99) Calcium Level 8.6 mg/dL (8.5-10.1) Iron Level 7 ug/dL (65-175) Total Iron Binding Capacity 157 ug/dL (250-450) Iron Saturation 4 % (15-34) Total Bilirubin 0.4 mg/dL (0.2-1.0) Aspartate Amino Transf (AST/SGOT) 18 U/L (15-37) Alanine Aminotransferase (ALT/SGPT) 17 U/L (16-63) Alkaline Phosphatase 76 U/L (46-116) Total Protein 7.5 g/dL (6.4-8.2) Albumin 2.5 g/dL (3.4-5.0) Albumin/Globulin Ratio 0.5 (1.0-1.7) Vitamin B12 Level 593 pg/mL (247-911) Test 01/31/19 07:30 01/31/19 10:15 01/31/19 10:58 01/31/19 16:45 Glucose (Fingerstick) 136 mg/dL (70-99) 118 mg/dL (70-99) 151 mg/dL (70-99) Prothrombin Time 13.8 SEC (11.7-14.0) Prothromb Time International Ratio 1.1 (0.8-1.1) Test 01/31/19 20:31 02/01/19 06:15 02/01/19 07:51 Glucose (Fingerstick) 143 mg/dL (70-99) 122 mg/dL (70-99) White Blood Count 11.7 x10^3/uL (4.0-11.0) Red Blood Count 2.95 x10^6/uL (4.30-5.70) Hemoglobin 8.6 g/dL (13.0-17.5) Hematocrit 26.1 % (39.0-53.0) Mean Corpuscular Volume 89 fL (79-100) Mean Corpuscular Hemoglobin 29 pg (25-35) Mean Corpuscular Hemoglobin Concent 33 g/dL (31-37) Red Cell Distribution Width 15.9 % (11.5-14.5) Platelet Count 515 x10^3/uL (140-400) Sodium Level 133 mmol/L (136-145) Potassium Level 3.5 mmol/L (3.5-5.1) Chloride Level 96 mmol/L (98-107) Carbon Dioxide Level 26 mmol/L (21-32) Anion Gap 11 (6-14) Blood Urea Nitrogen 6 mg/dL (8-26) Creatinine 0.6 mg/dL (0.7-1.3) Estimated GFR (Cockcroft-Gault) 138.4 Glucose Level 125 mg/dL (70-99) Calcium Level 8.6 mg/dL (8.5-10.1) Laboratory Tests Test 01/31/19 10:15 01/31/19 10:58 01/31/19 16:45 01/31/19 20:31 Prothrombin Time 13.8 SEC (11.7-14.0) Prothromb Time International Ratio 1.1 (0.8-1.1) Glucose (Fingerstick) 118 mg/dL (70-99) 151 mg/dL (70-99) 143 mg/dL (70-99) Test 02/01/19 06:15 02/01/19 07:51 White Blood Count 11.7 x10^3/uL (4.0-11.0) Red Blood Count 2.95 x10^6/uL (4.30-5.70) Hemoglobin 8.6 g/dL (13.0-17.5) Hematocrit 26.1 % (39.0-53.0) Mean Corpuscular Volume 89 fL (79-100) Mean Corpuscular Hemoglobin 29 pg (25-35) Mean Corpuscular Hemoglobin Concent 33 g/dL (31-37) Red Cell Distribution Width 15.9 % (11.5-14.5) Platelet Count 515 x10^3/uL (140-400) Sodium Level 133 mmol/L (136-145) Potassium Level 3.5 mmol/L (3.5-5.1) Chloride Level 96 mmol/L (98-107) Carbon Dioxide Level 26 mmol/L (21-32) Anion Gap 11 (6-14) Blood Urea Nitrogen 6 mg/dL (8-26) Creatinine 0.6 mg/dL (0.7-1.3) Estimated GFR (Cockcroft-Gault) 138.4 Glucose Level 125 mg/dL (70-99) Calcium Level 8.6 mg/dL (8.5-10.1) Glucose (Fingerstick) 122 mg/dL (70-99) Assessment/Plan continue drain, abx will review with JODIE Trinh MD 02/01/19 1502: SURGICAL PROGRESS NOTE Assessment/Plan Pt seen and examined. Agree with Ms. Duran's note Pt with pain, but improved, hungry abd soft, still with hard area, drain with purulent output cont drain, adat NIKOLAY DURAN APRN Feb 01, 2019 08:29 JODIE RUIZ MD Feb 01, 2019 15:02
--- NOTE | 2019-02-01 09:47 | PN ---
DATE: 02/01/2019 SUBJECTIVE: The patient is resting, slightly propped up in bed, in no apparent distress. He continued to have some pain. He did have a drain placed by the interventional radiologist yesterday and the fluid was sent for culture and sensitivity. PHYSICAL EXAMINATION: GENERAL: When I examined him this morning, he looked well and was clearly in no apparent respiratory distress. No pallor, jaundice, cyanosis or thyromegaly. No jugular venous distention. No lower limb edema. VITAL SIGNS: His heart rate was 65, blood pressure 136/60, temperature was 98.4, respiratory rate was 18 and oxygen saturation was 91% on room air. HEAD, EYES, EARS, NOSE AND THROAT: Showed normocephalic, atraumatic. NECK: Supple. HEART: Showed normal first and second heart sounds with no gallop, rub or murmur. CHEST: Clear to auscultation. No crepitation or rhonchi. ABDOMEN: Distended, soft, nontender. No guarding or rigidity. No organomegaly. All hernial orifice intact. Bowel sounds normal. He has a drain in the epigastric area. NEUROLOGIC: He is awake, alert, responding appropriately. All cranial nerves are intact. He moves extremities without difficulty, ambulates without assistance or assistive devices. His intake and output are incompletely recorded. LABORATORY DATA: His lab work this morning showed a serum sodium 133, potassium 3.5, chloride 96, bicarbonate 26, anion gap of 11, BUN 6, creatinine 0.6, estimated GFR was 138 mL per minute, his glucose 125 and calcium was 8.6. His white cell count was 11,700; hemoglobin 8.6, hematocrit 26, MCV 89, and platelet count 515,000. His prothrombin time was 13.8, INR 1.1. ASSESSMENT: 1. Abdominal pain and palpable mass. CT scan showing that there is a mass in the subhepatic area herniating through the defect in the abdominal wall. The radiologist impression that there is another pseudocyst and obviously has chronic pancreatitis with pseudocyst in the tail of the pancreas. 2. Other medical problems include: A. Type 2 diabetes mellitus. B. Hypertension. C. Chronic obstructive pulmonary disease. D. The patient has pancreatic and biliary stents. 3. Alcoholism, continued tobacco use disorder. PLAN: To continue with the pain management. Continue with IV antibiotic in the form of meropenem and await the result of the culture and sensitivity. AUSTIN ESPINOZA MD DR: ANAHY/niranjan JOB#: [id number] / [id number]
[2019-02-01 11:00] VITALS: BP 124/73
--- NOTE | 2019-02-01 11:53 | PDOC ---
Objective: Objective: Returned after drain placed yesterday w/ Dr. Curiel - purulent drainage o bserved. D/w nurse - tolerating PO. Vital Signs: Vital Signs Date Time Temp Pulse Resp B/P (MAP) Pulse Ox O2 Delivery O2 Flow Rate FiO2 02/01/19 11:22 91 Room Air 02/01/19 07:53 136/60 02/01/19 07:00 98.4 65 18 98.4 Labs: Laboratory Tests Test 01/31/19 16:45 01/31/19 20:31 02/01/19 06:15 02/01/19 07:51 Glucose (Fingerstick) 151 mg/dL 143 mg/dL 122 mg/dL White Blood Count 11.7 x10^3/uL Red Blood Count 2.95 x10^6/uL Hemoglobin 8.6 g/dL Hematocrit 26.1 % Mean Corpuscular Volume 89 fL Mean Corpuscular Hemoglobin 29 pg Mean Corpuscular Hemoglobin Concent 33 g/dL Red Cell Distribution Width 15.9 % Platelet Count 515 x10^3/uL Sodium Level 133 mmol/L Potassium Level 3.5 mmol/L Chloride Level 96 mmol/L Carbon Dioxide Level 26 mmol/L Anion Gap 11 Blood Urea Nitrogen 6 mg/dL Creatinine 0.6 mg/dL Estimated GFR (Cockcroft-Gault) 138.4 Glucose Level 125 mg/dL Calcium Level 8.6 mg/dL Test 02/01/19 11:09 Glucose (Fingerstick) 152 mg/dL PE: GEN: NAD - sleeping NEURO/PSYCH: not awakened A/P: Abd fluid collection s/p IR drain placement - culture pending [facility] - reports normal colonoscopy within the past year Chronic pancreatitis - pseudocyst drainage and biliary and pancreatic stents placed at S/p cholecystectomy 09/2018 -- Continue same per GI. DEYA SHAFFER Feb 01, 2019 11:53
--- NOTE | 2019-02-01 12:11 | PDOC ---
Infectious Disease Note Subjective Subjective Doing ok. Tolerating clears No F/C/s/N/V/D/SOA/rash ROS ROS o/w neg Vital Sign Vital Signs Vital Signs Date Time Temp Pulse Resp B/P (MAP) Pulse Ox O2 Delivery O2 Flow Rate FiO2 02/01/19 11:52 91 Room Air 02/01/19 11:00 98.8 72 18 124/73 (90) 98.8 Physical Exam PHYSICAL EXAM CONSTITUTIONAL: He is pleasant, cooperative, in no acute distress. He wears glasses. HEENT: Pupils equal and reactive. Normal conjunctivae. Oral cavity, pharynx is clear. NECK: Supple, no JVD. LUNGS: Clear to auscultation. HEART: S1, S2. ABDOMEN: Has a drain in the left mid and lower area, does appear to have some purulent material but less. Has decreased bowel sounds, mild distention, no guarding. EXTREMITIES: No clubbing, cyanosis or gross edema. SKIN: Warm to touch without signs of rash. NEUROLOGIC: He is nonfocal and appropriate. PSYCHIATRIC: Affect is appropriate. Labs Lab Laboratory Tests Test 01/31/19 16:45 01/31/19 20:31 02/01/19 06:15 02/01/19 07:51 Glucose (Fingerstick) 151 mg/dL (70-99) 143 mg/dL (70-99) 122 mg/dL (70-99) White Blood Count 11.7 x10^3/uL (4.0-11.0) Red Blood Count 2.95 x10^6/uL (4.30-5.70) Hemoglobin 8.6 g/dL (13.0-17.5) Hematocrit 26.1 % (39.0-53.0) Mean Corpuscular Volume 89 fL (79-100) Mean Corpuscular Hemoglobin 29 pg (25-35) Mean Corpuscular Hemoglobin Concent 33 g/dL (31-37) Red Cell Distribution Width 15.9 % (11.5-14.5) Platelet Count 515 x10^3/uL (140-400) Sodium Level 133 mmol/L (136-145) Potassium Level 3.5 mmol/L (3.5-5.1) Chloride Level 96 mmol/L (98-107) Carbon Dioxide Level 26 mmol/L (21-32) Anion Gap 11 (6-14) Blood Urea Nitrogen 6 mg/dL (8-26) Creatinine 0.6 mg/dL (0.7-1.3) Estimated GFR (Cockcroft-Gault) 138.4 Glucose Level 125 mg/dL (70-99) Calcium Level 8.6 mg/dL (8.5-10.1) Test 02/01/19 11:09 Glucose (Fingerstick) 152 mg/dL (70-99) Micro Minimal bibasilar atelectasis. The visualized heart is normal. Liver and spleen appear normal. Cholecystectomy. Diffuse pancreatic calcification consistent with known chronic calcific pancreatitis. There is a cystic lesion in the region of pancreatic head, unchanged since prior exams. No peripancreatic inflammatory changes are seen. Biliary and pancreatic stents redemonstrated. There is development of a fluid collection inferior to the liver which herniates through a defect in the anterior abdominal wall. The exact size of this collection is difficult to measure, however measures to the order of 8.8 cm transverse by 6.2 cm AP x6.0 cm cranial caudal dimension. Diffuse thickening of the stomach appiah noted. Both adrenal glands and bilateral kidneys are normal in size with symmetric excretion of contrast via both kidneys. Small and large bowel loops are nondilated and unremarkable. Appendix is contrast-filled. Urinary bladder is distended. Sigmoid diverticulosis. Streak artifact emanating from right hip arthroplasty. Prostatomegaly with calcifications. No pelvic fluid collection is seen. Spondylotic changes with grade 1 anterolisthesis of L4 over L5. Degenerative disease at L5-S1. IMPRESSION: Findings consistent with chronic calcific pancreatitis redemonstrated with biliary and pancreatic stent in place. Cystic mass in relation to the pancreatic tail consistent with a pancreatic pseudocyst is unchanged. Interval development of a fluid collection in the infrahepatic region which herniates through the abdominal wall defect, perhaps a new pseudocyst . Sigmoid diverticulosis without acute diverticulitis. Objective Assessment Abd fluid collection Leukocytosis - better H/o Pancreatitis with stent Tobacco abuse Plan Plan of Care Post drain and cults pending - added Meropenem 01/31 F/u labs and cults JUAN MARSH MD Feb 01, 2019 12:11
[2019-02-01 15:00] VITALS: BP 140/61
--- NOTE | 2019-02-01 15:29 | RAD ---
Ultrasound-guided drainage, anterior abdominal wall fluid collection 02/01/2019 INDICATION: Loculated anterior abdominal wall fluid collection of uncertain etiology Discussion The procedure was explained in its entirety to the patient or the patients designated access services representative by a member of the treatment team, including a discussion of the risks, benefits and commonly accepted alternatives to the procedure, as well as the expected consequences of no therapy whatsoever. Discussion of the risks included, but was not limited to, those that are most frequent and those that are rare but possibly severe or life-threatening, as well as the possibility of unforeseen complications. All elements of maximal sterile barrier technique including the use of a cap, mask, sterile gown, sterile gloves, large sterile sheet, appropriate hand hygiene, and 2% chlorhexidine for cutaneous antisepsis (or acceptable alternative antiseptic per current guidelines) were followed for this procedure. Ultrasound evaluation demonstrates a multiloculated fluid collection in the anterior abdominal wall. 1% lidocaine was measured for local anesthesia. The collection was accessed using a frankly purulent material was aspirated. The catheter was then repositioned, and a wire advanced into the collection under ultrasound. Following dilatation a 10 Icelandic drain was placed. Continued. Limited output was noted. The catheter was secured in place. Sterile dressings were applied. No immediate complications were identified. Impression: Ultrasound-guided drainage, anterior abdominal wall fluid collection consistent with abscess
[2019-02-01] MEDS: HYDROcodone/APAP 5/325MG 1 TAB TABLET PO PRN (17:11)
[2019-02-01 19:00] VITALS: BP 121/62
[2019-02-01] MEDS: LACTOBACILLUS RHAMNOSUS GG 1 CAPSULE. PO SCH (21:15)
[2019-02-01] MEDS: NICOTINE 14MG PATCH. TD SCH (21:15)
[2019-02-01 23:00] VITALS: BP 132/71
[2019-02-02] MEDS: HYDROmorphone 2 MG/ML VIAL IV PRN ×7 (01:09→23:50)
[2019-02-02 03:00] VITALS: BP 115/67
[2019-02-02] MEDS: MEROPENEM 500 MG in IV NORMAL SALINE 50ML 50 ML IV SCH ×4 (06:13→23:49)
[2019-02-02 07:00] VITALS: BP 149/58
[2019-02-02] MEDS: PANTOPRAZOLE 40 MG TABLET.DR. PO SCH (07:42)
--- NOTE | 2019-02-02 07:45 | NUR ---
L abd ALFONSO drain flushed with 10cc NS.
[2019-02-02] MEDS: LACTOBACILLUS RHAMNOSUS GG 1 CAPSULE. PO SCH ×2 (09:08→20:15)
[2019-02-02] MEDS: MULTIVITAMIN with MINERAL TABLET. PO SCH (09:08)
[2019-02-02] MEDS: NICOTINE 14MG PATCH. TD SCH (09:09)
--- NOTE | 2019-02-02 09:10 | PDOC ---
Infectious Disease Note Subjective Subjective Doing ok. Tolerating food No F/C/s/N/V/D/SOA/rash Still gets pain q 6 hours or so ROS ROS o/w neg Vital Sign Vital Signs Vital Signs Date Time Temp Pulse Resp B/P (MAP) Pulse Ox O2 Delivery O2 Flow Rate FiO2 02/02/19 07:51 Room Air 02/02/19 07:00 98.2 68 18 149/58 (88) 94 98.2 Physical Exam PHYSICAL EXAM CONSTITUTIONAL: He is pleasant, cooperative, in no acute distress. He wears glasses. HEENT: Pupils equal and reactive. Normal conjunctivae. Oral cavity, pharynx is clear. NECK: Supple, no JVD. LUNGS: Clear to auscultation. HEART: S1, S2. ABDOMEN: Has a drain in the left mid and lower area, does appear to have some purulent material but less. Has decreased bowel sounds, mild distention, no guarding. EXTREMITIES: No clubbing, cyanosis or gross edema. SKIN: Warm to touch without signs of rash. NEUROLOGIC: He is nonfocal and appropriate. PSYCHIATRIC: Affect is appropriate. Labs Lab Laboratory Tests Test 02/01/19 11:09 02/01/19 15:07 02/01/19 20:59 02/02/19 07:54 Glucose (Fingerstick) 152 mg/dL (70-99) 152 mg/dL (70-99) 163 mg/dL (70-99) 135 mg/dL (70-99) Micro Minimal bibasilar atelectasis. The visualized heart is normal. Liver and spleen appear normal. Cholecystectomy. Diffuse pancreatic calcification consistent with known chronic calcific pancreatitis. There is a cystic lesion in the region of pancreatic head, unchanged since prior exams. No peripancreatic inflammatory changes are seen. Biliary and pancreatic stents redemonstrated. There is development of a fluid collection inferior to the liver which herniates through a defect in the anterior abdominal wall. The exact size of this collection is difficult to measure, however measures to the order of 8.8 cm transverse by 6.2 cm AP x6.0 cm cranial caudal dimension. Diffuse thickening of the stomach appiah noted. Both adrenal glands and bilateral kidneys are normal in size with symmetric excretion of contrast via both kidneys. Small and large bowel loops are nondilated and unremarkable. Appendix is contrast-filled. Urinary bladder is distended. Sigmoid diverticulosis. Streak artifact emanating from right hip arthroplasty. Prostatomegaly with calcifications. No pelvic fluid collection is seen. Spondylotic changes with grade 1 anterolisthesis of L4 over L5. Degenerative disease at L5-S1. IMPRESSION: Findings consistent with chronic calcific pancreatitis redemonstrated with biliary and pancreatic stent in place. Cystic mass in relation to the pancreatic tail consistent with a pancreatic pseudocyst is unchanged. Interval development of a fluid collection in the infrahepatic region which herniates through the abdominal wall defect, perhaps a new pseudocyst . Sigmoid diverticulosis without acute diverticulitis. Objective Assessment Abd fluid collection - cults pending - a lot of inflammatory cells - ? source still Leukocytosis - better H/o Pancreatitis with stent Tobacco abuse Plan Plan of Care Post drain and cults pending - added Meropenem 01/31 F/u labs and cults D/w nursing JUAN MARSH MD Feb 02, 2019 09:10
--- NOTE | 2019-02-02 09:43 | PDOC ---
NIKOLAY DURAN [employer]IVER 02/02/19 0943: SURGICAL PROGRESS NOTE Subjective no complaints still some pain luq,around drain site Vital Signs Vital Signs Date Time Temp Pulse Resp B/P (MAP) Pulse Ox O2 Delivery O2 Flow Rate FiO2 02/02/19 09:09 Room Air 02/02/19 09:08 68 149/58 02/02/19 07:00 98.2 18 94 98.2 I&O Intake and Output 02/02/19 07:00 Intake Total 1515 ml Output Total 75 ml Balance 1440 ml Intake Oral 240 ml IV Total 375 ml Other 900 ml Drainage Total 75 ml General: Alert, Oriented X3, Cooperative Abdomen: Soft, Other (drain purulent) Labs Laboratory Tests Test 01/31/19 10:15 01/31/19 10:58 01/31/19 16:45 01/31/19 20:31 Prothrombin Time 13.8 SEC (11.7-14.0) Prothromb Time International Ratio 1.1 (0.8-1.1) Glucose (Fingerstick) 118 mg/dL (70-99) 151 mg/dL (70-99) 143 mg/dL (70-99) Test 02/01/19 06:15 02/01/19 07:51 02/01/19 11:09 02/01/19 15:07 White Blood Count 11.7 x10^3/uL (4.0-11.0) Red Blood Count 2.95 x10^6/uL (4.30-5.70) Hemoglobin 8.6 g/dL (13.0-17.5) Hematocrit 26.1 % (39.0-53.0) Mean Corpuscular Volume 89 fL (79-100) Mean Corpuscular Hemoglobin 29 pg (25-35) Mean Corpuscular Hemoglobin Concent 33 g/dL (31-37) Red Cell Distribution Width 15.9 % (11.5-14.5) Platelet Count 515 x10^3/uL (140-400) Sodium Level 133 mmol/L (136-145) Potassium Level 3.5 mmol/L (3.5-5.1) Chloride Level 96 mmol/L (98-107) Carbon Dioxide Level 26 mmol/L (21-32) Anion Gap 11 (6-14) Blood Urea Nitrogen 6 mg/dL (8-26) Creatinine 0.6 mg/dL (0.7-1.3) Estimated GFR (Cockcroft-Gault) 138.4 Glucose Level 125 mg/dL (70-99) Calcium Level 8.6 mg/dL (8.5-10.1) Glucose (Fingerstick) 122 mg/dL (70-99) 152 mg/dL (70-99) 152 mg/dL (70-99) Test 02/01/19 20:59 02/02/19 07:54 Glucose (Fingerstick) 163 mg/dL (70-99) 135 mg/dL (70-99) Laboratory Tests Test 02/01/19 11:09 02/01/19 15:07 02/01/19 20:59 02/02/19 07:54 Glucose (Fingerstick) 152 mg/dL (70-99) 152 mg/dL (70-99) 163 mg/dL (70-99) 135 mg/dL (70-99) Assessment/Plan abx, drain await cultures JODIE RUIZ MD 02/02/19 1156: SURGICAL PROGRESS NOTE Assessment/Plan Pt seen and examined. Agree with Ms. Duran's note Pt with c/o pain, but tolerable abd with drain with purulent material cont supportive care. NIKOLAY DURAN APRN Feb 02, 2019 09:43 JODIE RUIZ MD Feb 02, 2019 11:56
[2019-02-02] MEDS: IV NORMAL SALINE 1000ML BAG 1,000 ML IV SCH ×2 (10:25→11:15)
[2019-02-02 11:00] VITALS: BP 145/75
--- NOTE | 2019-02-02 11:40 | PDOC ---
Subjective: Subjective: Abdomen feels better, tolerating diet. Objective: Vital Signs: Vital Signs Date Time Temp Pulse Resp B/P (MAP) Pulse Ox O2 Delivery O2 Flow Rate FiO2 02/02/19 11:14 Room Air 02/02/19 11:00 98.5 70 16 145/75 (98) 94 98.5 Labs: Laboratory Tests Test 02/01/19 15:07 02/01/19 20:59 02/02/19 07:54 Glucose (Fingerstick) 152 mg/dL (70-99) 163 mg/dL (70-99) 135 mg/dL (70-99) ANAEROBIC-AEROBIC CULTURE PENDING ANAEROBIC RES 1 PENDING AEROBIC CULT PENDING AEROBIC RES 1 PENDING GRAM STAIN Final Final report GRAM STAIN RES 1 Final Comment Moderate amount of white blood cells. GRAM STAIN RES 2 Final No organisms seen PE: GEN: NAD LUNGS: CTAB HEART: RRR ABD: LUQ knot is smaller, drain purulent NEURO/PSYCH: A & O 3 A/P: Abd fluid collection s/p IR drain placement - culture pending [facility] Chronic pancreatitis S/p cholecystectomy 09/2018 -- Continue same per GI. DEYA SHAFFER Feb 02, 2019 11:40
--- NOTE | 2019-02-02 11:58 | NUR ---
SW following for discharge planning. Chart reviewed, discussed with RN. Pt is from home, diet advanced to regular diet. IV meropenem, cultures pending. SW will continue to follow for discharge planning needs.
[2019-02-02 15:00] VITALS: BP 132/77
--- NOTE | 2019-02-02 17:45 | NUR ---
abd ALFONSO drain flushed with 10cc NS.
[2019-02-02] MEDS: HYDROcodone/APAP 5/325MG 1 TAB TABLET PO PRN (18:21)
[2019-02-02 19:12] VITALS: BP 145/67
[2019-02-02 23:14] VITALS: BP 138/65
[2019-02-03] MEDS: IV NORMAL SALINE 1000ML BAG 1,000 ML IV SCH ×3 (00:07→21:29)
--- NOTE | 2019-02-03 00:37 | PN ---
DATE: 02/02/2019 SUBJECTIVE: The patient is sitting at the edge of the bed, eating his lunch comfortably, in no apparent distress. On questioning him, he continued to have some pain when he leans forward; however, the drainage from the abdominal abscess is much less now. PHYSICAL EXAMINATION: GENERAL: When I examined him, he looked well and was clearly in no apparent respiratory distress, pale, no jaundice, cyanosis or thyromegaly. No jugular venous distention. No limb edema. VITAL SIGNS: His heart rate was 70, blood pressure was 145/75, temperature was 98.5, respiratory rate was 16, and oxygen saturation was 94%. The rest of exam is stable. ABDOMEN: There is very little drainage from the abdominal abscess. His intake was 2716. Output was recorded. LABORATORY DATA: His lab work as of yesterday showed a white cell count of 11,700, hemoglobin 8.6, hematocrit 26, MCV 89 and platelet count 515,000. His serum sodium was 133, potassium 3.5, chloride 96, bicarbonate 26, anion gap of 11, BUN 6, creatinine 0.6, estimated GFR was 138 mL per minute, glucose 125, and calcium was 8.6. ASSESSMENT: 1. Abdominal fluid collection and abscess versus pseudocyst. 2. History of chronic pancreatitis with pancreatic and biliary stent. 3. Tobacco and alcohol abuse. 4. Type 2 diabetes mellitus. PLAN: To continue on IV antibiotic. Continue to monitor his blood sugar. Continue with pain management. AUSTIN ESPINOZA MD DR: ANAHY/niranjan JOB#: [id number] / [id number]
[2019-02-03] MEDS: HYDROcodone/APAP 5/325MG 1 TAB TABLET PO PRN ×3 (01:42→19:09)
[2019-02-03 03:20] VITALS: BP 116/64
[2019-02-03] MEDS: PANTOPRAZOLE 40 MG TABLET.DR. PO SCH (05:22)
[2019-02-03] MEDS: MEROPENEM 500 MG in IV NORMAL SALINE 50ML 50 ML IV SCH ×3 (05:22→17:09)
[2019-02-03 05:41] LABS: BASO # 0.1 x10^3/uL (0.0-0.2); BASO % 1 % (0-3); EOS # 0.2 x10^3/uL (0.0-0.7); EOS % 1 % (0-3); HEMATOCRIT 25.6 % (39.0-53.0); HEMOGLOBIN 8.5 g/dL (13.0-17.5); LYMPH # 2.1 x10^3/uL (1.0-4.8); LYMPH % 16 % (24-48); MEAN CORPUSCULAR HEMOGLOBIN 29 pg (25-35); MEAN CORPUSCULAR HGB CONC 33 g/dL (31-37); MEAN CORPUSCULAR VOLUME 89 fL (79-100); MONO # 2.1 x10^3/uL (0.0-1.1); MONO % 16 % (0-9); NEUT # 8.6 x10^3/uL (1.8-7.7); NEUT % 66 % (31-73); PLATELET COUNT 478 x10^3/uL (140-400); RED BLOOD COUNT 2.89 x10^6/uL (4.30-5.70); RED CELL DISTRIBUTION WIDTH 15.9 % (11.5-14.5)
[2019-02-03 05:44] LABS: ALBUMIN 2.2 g/dL (3.4-5.0); ALBUMIN/GLOBULIN RATIO 0.5 (1.0-1.7); CALCIUM 8.5 mg/dL (8.5-10.1); CREATININE 0.7 mg/dL (0.7-1.3); GFR 115.8; POTASSIUM 3.8 mmol/L (3.5-5.1); TOTAL BILIRUBIN 0.4 mg/dL (0.2-1.0); TOTAL PROTEIN 6.8 g/dL (6.4-8.2)
[2019-02-03] MEDS: HYDROmorphone 2 MG/ML VIAL IV PRN ×5 (05:45→21:15)
[2019-02-03 07:00] VITALS: BP 124/68
[2019-02-03] MEDS: LACTOBACILLUS RHAMNOSUS GG 1 CAPSULE. PO SCH ×2 (08:07→19:09)
[2019-02-03] MEDS: MULTIVITAMIN with MINERAL TABLET. PO SCH (08:07)
--- NOTE | 2019-02-03 09:11 | PDOC ---
NIKOLAY DURAN DUAL RATE DEALER 02/03/19 0911: SURGICAL PROGRESS NOTE Subjective resting minimal pain d/w vascular Vital Signs Vital Signs Date Time Temp Pulse Resp B/P (MAP) Pulse Ox O2 Delivery O2 Flow Rate FiO2 02/03/19 08:08 64 128/68 02/03/19 08:08 100 Room Air 02/03/19 07:00 98.2 16 98.2 I&O Intake and Output 02/03/19 07:00 Intake Total 1175 ml Output Total 420 ml Balance 755 ml Intake Oral 1175 ml Output Urine Total 350 ml Drainage Total 70 ml # Voids 6 General: Alert, Oriented X3, Cooperative Abdomen: Soft, Other (drain purulent ) Labs Laboratory Tests Test 02/01/19 11:09 02/01/19 15:07 02/01/19 20:59 02/02/19 07:54 Glucose (Fingerstick) 152 mg/dL (70-99) 152 mg/dL (70-99) 163 mg/dL (70-99) 135 mg/dL (70-99) Test 02/02/19 12:01 02/02/19 17:04 02/02/19 20:44 02/03/19 04:57 Glucose (Fingerstick) 151 mg/dL (70-99) 190 mg/dL (70-99) 206 mg/dL (70-99) White Blood Count 13.0 x10^3/uL (4.0-11.0) Red Blood Count 2.89 x10^6/uL (4.30-5.70) Hemoglobin 8.5 g/dL (13.0-17.5) Hematocrit 25.6 % (39.0-53.0) Mean Corpuscular Volume 89 fL (79-100) Mean Corpuscular Hemoglobin 29 pg (25-35) Mean Corpuscular Hemoglobin Concent 33 g/dL (31-37) Red Cell Distribution Width 15.9 % (11.5-14.5) Platelet Count 478 x10^3/uL (140-400) Neutrophils (%) (Auto) 66 % (31-73) Lymphocytes (%) (Auto) 16 % (24-48) Monocytes (%) (Auto) 16 % (0-9) Eosinophils (%) (Auto) 1 % (0-3) Basophils (%) (Auto) 1 % (0-3) Neutrophils # (Auto) 8.6 x10^3/uL (1.8-7.7) Lymphocytes # (Auto) 2.1 x10^3/uL (1.0-4.8) Monocytes # (Auto) 2.1 x10^3/uL (0.0-1.1) Eosinophils # (Auto) 0.2 x10^3/uL (0.0-0.7) Basophils # (Auto) 0.1 x10^3/uL (0.0-0.2) Sodium Level 132 mmol/L (136-145) Potassium Level 3.8 mmol/L (3.5-5.1) Chloride Level 97 mmol/L (98-107) Carbon Dioxide Level 27 mmol/L (21-32) Anion Gap 8 (6-14) Blood Urea Nitrogen 9 mg/dL (8-26) Creatinine 0.7 mg/dL (0.7-1.3) Estimated GFR (Cockcroft-Gault) 115.8 BUN/Creatinine Ratio 13 (6-20) Glucose Level 138 mg/dL (70-99) Calcium Level 8.5 mg/dL (8.5-10.1) Total Bilirubin 0.4 mg/dL (0.2-1.0) Aspartate Amino Transf (AST/SGOT) 21 U/L (15-37) Alanine Aminotransferase (ALT/SGPT) 27 U/L (16-63) Alkaline Phosphatase 85 U/L (46-116) Total Protein 6.8 g/dL (6.4-8.2) Albumin 2.2 g/dL (3.4-5.0) Albumin/Globulin Ratio 0.5 (1.0-1.7) Test 02/03/19 07:55 Glucose (Fingerstick) 150 mg/dL (70-99) Laboratory Tests Test 02/02/19 12:01 02/02/19 17:04 02/02/19 20:44 02/03/19 04:57 Glucose (Fingerstick) 151 mg/dL (70-99) 190 mg/dL (70-99) 206 mg/dL (70-99) White Blood Count 13.0 x10^3/uL (4.0-11.0) Red Blood Count 2.89 x10^6/uL (4.30-5.70) Hemoglobin 8.5 g/dL (13.0-17.5) Hematocrit 25.6 % (39.0-53.0) Mean Corpuscular Volume 89 fL (79-100) Mean Corpuscular Hemoglobin 29 pg (25-35) Mean Corpuscular Hemoglobin Concent 33 g/dL (31-37) Red Cell Distribution Width 15.9 % (11.5-14.5) Platelet Count 478 x10^3/uL (140-400) Neutrophils (%) (Auto) 66 % (31-73) Lymphocytes (%) (Auto) 16 % (24-48) Monocytes (%) (Auto) 16 % (0-9) Eosinophils (%) (Auto) 1 % (0-3) Basophils (%) (Auto) 1 % (0-3) Neutrophils # (Auto) 8.6 x10^3/uL (1.8-7.7) Lymphocytes # (Auto) 2.1 x10^3/uL (1.0-4.8) Monocytes # (Auto) 2.1 x10^3/uL (0.0-1.1) Eosinophils # (Auto) 0.2 x10^3/uL (0.0-0.7) Basophils # (Auto) 0.1 x10^3/uL (0.0-0.2) Sodium Level 132 mmol/L (136-145) Potassium Level 3.8 mmol/L (3.5-5.1) Chloride Level 97 mmol/L (98-107) Carbon Dioxide Level 27 mmol/L (21-32) Anion Gap 8 (6-14) Blood Urea Nitrogen 9 mg/dL (8-26) Creatinine 0.7 mg/dL (0.7-1.3) Estimated GFR (Cockcroft-Gault) 115.8 BUN/Creatinine Ratio 13 (6-20) Glucose Level 138 mg/dL (70-99) Calcium Level 8.5 mg/dL (8.5-10.1) Total Bilirubin 0.4 mg/dL (0.2-1.0) Aspartate Amino Transf (AST/SGOT) 21 U/L (15-37) Alanine Aminotransferase (ALT/SGPT) 27 U/L (16-63) Alkaline Phosphatase 85 U/L (46-116) Total Protein 6.8 g/dL (6.4-8.2) Albumin 2.2 g/dL (3.4-5.0) Albumin/Globulin Ratio 0.5 (1.0-1.7) Test 02/03/19 07:55 Glucose (Fingerstick) 150 mg/dL (70-99) Assessment/Plan drain, abx cultures pending JODIE RUIZ MD 02/03/19 1315: SURGICAL PROGRESS NOTE Assessment/Plan Pt seen and examined. Agree with Ms. Duran's note Pt with pain, but improved abd soft, drain in place cont drain d/c planning. NIKOLAY DURAN APRN Feb 03, 2019 09:11 JODIE RUIZ MD Feb 03, 2019 13:15
--- NOTE | 2019-02-03 10:09 | PDOC2 ---
CONSULT Date of Consult Date of Consult DATE: 02/03/19 TIME: 09:47 Reason for Consult Reason for Consult: Right leg claudication Referring Physician Referring Physician: Dr. Alejandro Identification/Chief Complaint Chief Complaint Abdominal pain, bloating and mass Source Source: Chart review, Patient History of Present Illness Reason for Visit: This is a 58-year-old man was last seen in our practice in September 2018 for history of right leg claudication. His past medical history is significant for diabetes, hypertension, tobacco and ETOH abuse. He was admitted with abdominal pain and bloating and abdominal mass. The patient has a history of complicated cholecystitis status post laparascopic cholecystectomy September 2018 and a history of pancreatitis with multiple pseudocyst. CT scan showe a multiloculated colle ction anterior and inferior to the left liver, and falciform ligament extending into the anterior abdominal wall. This subsequently has been drained by interventional radiology. Cultures are pending. Patient currently being managed by internal medicine, general surgery, infectious disease, and gastrointestinal specialties. The patient requested further evaluation regarding his right leg claudication to see if there is a possibility he could have treatment while he is hospitalized. CT angiogram was performed on August 19, 2018 showed extensive atherosclerotic disease. He had significant bilateral external iliac artery stenosis, worse on the right and approaching 90%. He had common femoral artery disease worse on the right and approaching 90% and superficial femoral artery disease in the midportion greater than 90%. In addition he has 70% stenosis of the left popliteal artery. 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 The patient denies any lesions or open ulceration in his lower extremities. He reports no signicant treatment to his lower extremities. The patient was advised to follow up with Dr. Chiang in October. He denies any TIA or strokelike symptoms. Recent carotid ultrasound in our office without significant disease. Currently he denies any fever or chills. He denies any nausea or vomiting. Past Medical History Cardiovascular: HTN Pulmonary: COPD CENTRAL NERVOUS SYSTEM: TIA GI: Diverticulosis, GERD, Other (pancreatitis with stent) Hepatobiliary: Cholelithiasis, Other Psych: Other Musculoskeletal: Osteoarthritis Rheumatologic: No pertinent hx Infectious disease: No pertinent hx Renal/: No pertinent hx Endocrine: Diabetes Past Surgical History Past Surgical History: Cholecystectomy, Total hip replacement, Total knee replacement, Other Family History Family History: Hypertension Social History <1 pack per day ALCOHOL: heavy Drugs: None Lives: with Family Current Medications Current Medications Current Medications Acetaminophen/ Hydrocodone Bitart (Lortab 5/325) 1 tab PRN Q4HRS PRN PO MODER ATE-SEVERE PAIN Last administered on 02/03/19at 08:08; Start 01/28/19 at 23:45 Sodium Chloride 1,000 ml @ 75 mls/hr [id number] IV Last administered on 02/03/19at 00:07; Start 01/28/19 at 23:45 Aspirin (Ecotrin) 81 mg DAILYWBKFT PO ; Start 01/29/19 at 08:00; Stop 01/29/19 at 00:09; Status DC Clopidogrel Bisulfate (Plavix) 75 mg DAILY PO ; Start 01/29/19 at 09:00; Stop 01/29/19 at 00:09; Status DC Pantoprazole Sodium (Protonix) 40 mg DAILYAC PO ; Start 01/29/19 at 07:30; Stop 01/29/19 at 00:09; Status DC Meloxicam (Mobic) 15 mg DAILY PO ; Start 01/29/19 at 09:00; Stop 01/29/19 at 00:09; Status DC Info (FLU VACCINE SCREEN per RX) 1 each PRN 1X PRN MC SEE COMMENTS; Start 01/29/19 at 02:00; Status UNV Influenza Virus Vaccine Quadrival (Afluria Quad 2019-20 (3yr Up) Syringe) 0.5 ml ONCE ONCE VAX IM Last administered on 01/29/19at 09:07; Start 01/29/19 at 09:00; Stop 01/29/19 at 09:01; Status DC Diltiazem HCl (Cardizem 24hr Cd) 240 mg DAILY PO Last administered on 02/03/19at 08:08; Start 01/29/19 at 12:00 Tramadol HCl (Ultram) 50 mg PRN Q6HRS PRN PO MILD PAIN 1-3; Start 01/29/19 at 11:00 Multivitamins (Thera M Plus) 1 tab DAILY PO Last administered on 02/03/19at 08:07; Start 01/29/19 at 12:00 Iohexol (Omnipaque 240 Mg/ml) 50 ml 1X ONCE PO ; Start 01/29/19 at 15:00; Stop 01/29/19 at 15:01; Status DC Iohexol (Omnipaque 300 Mg/ml) 75 ml 1X ONCE IV ; Start 01/29/19 at 15:00; Stop 01/29/19 at 15:01; Status DC Info (CONTRAST GIVEN -- Rx MONITORING) 1 each PRN DAILY PRN MC SEE COMMENTS; Start 01/29/19 at 15:00; Stop 01/31/19 at 14:59; Status DC Morphine Sulfate (Morphine Sulfate) 4 mg PRN Q4HRS PRN IV MODERATE PAIN Last administered on 01/30/19at 14:56; Start 01/29/19 at 15:15 Nicotine (Nicoderm Cq 14mg) 1 patch DAILY TD Last administered on 02/02/19at 09:09; Start 01/29/19 at 15:30 Hydromorphone HCl (Dilaudid) 2 mg PRN Q3HRS PRN IV SEVERE PAIN Last administe red on 02/03/19at 05:45; Start 01/30/19 at 16:00 Pantoprazole Sodium (Protonix) 40 mg DAILYAC PO Last administered on 02/03/19 05:22; Start 01/31/19 at 11:30 Lidocaine HCl (Buffered Lidocaine 1%) 3 ml STK-MED ONCE .ROUTE ; Start 01/31/19 at 11:16; Stop 01/31/19 at 11:16; Status DC Lidocaine HCl (Buffered Lidocaine 1%) 4 ml 1X ONCE IJ Last administered on 01/31/19at 11:41; Start 01/31/19 at 11:45; Stop 01/31/19 at 11:46; Status DC Lidocaine HCl (Buffered Lidocaine 1%) 5 ml 1X ONCE IJ Last administered on 01/31/19at 11:44; Start 01/31/19 at 11:45; Stop 01/31/19 at 11:46; Status DC Meropenem 500 mg/ Sodium Chloride 50 ml @ 100 mls/hr Q6HRS IV Last administered on 02/03/19at 05:22; Start 01/31/19 at 14:30 Lactobacillus Rhamnosus (Culturelle) 1 cap BID PO Last administered on 02/03/19at 08:07; Start 02/01/19 at 21:00 Active Scripts Active Reported One-A-Day Essential (Multivitamin) 1 Each Tablet 1 Tab PO DAILY 30 Days Tramadol Hcl 50 Mg Tablet 50 Mg PO Q6HRS PRN Ibuprofen 800 Mg Tablet 800 Mg PO PRN Q6HRS PRN Diltiazem 24Hr Cd (Diltiazem HCl) 240 Mg Cap.er.24h 1 Cap PO DAILY 30 Days Chantix (Varenicline Tartrate) 1 Mg Tablet 1 Mg PO BID Lantus Solostar (Insulin Glargine,Hum.rec.anlog) 100 Unit/1 Ml Insuln.pen 20 Unit SQ DAILY Aspir-Low (Aspirin) 81 Mg Tablet.dr 1 Tab PO DAILY Nexium Capsule (Esomeprazole Magnesium) 40 Mg Capsule.dr 1 Cap PO DAILY Clopidogrel (Clopidogrel Bisulfate) 75 Mg Tablet 1 Tab PO DAILY Meloxicam 15 Mg Tablet 1 Tab PO DAILY Allergies Allergies: Coded Allergies: lisinopril (Verified Allergy, Intermediate, 09/17/18) ROS Review of System Constitutional: Denies fever or chills Eyes: Denies any visual disturbances HENT: Denies nasal congestion or sore throat Respiratory: Denies cough or shortness of breath Cardiovascular: Denies any palpitations or chest pain GI: Denies abdominal pain, nausea, vomiting, bloody stools or diarrhea : Denies dysuria or hematuria Musculoskeletal: As per HPI Integument: As per HPI Neurologic: No gross deficits Endocrine: Diabetes Physical Exam Physical Exam Gen.: Alert and oriented 3. Cardiac: Heart rate regular. Normal carotid pulses with bilateral carotid bruit. Lungs: CTA, Non-labored respirations. Abdomen: Soft, mild distension, tender, drain in place. Extremities: 1+ palpable bilateral femoral pulses, unable to appreciate popliteal or distal pulses. 2+ right radial and 2+ left brachial. Skin: Warm, dry and intact. Capillary refill takes less than 2 seconds. Neurological: Motor and sensation intact. His kardex clerk strength is strong and equal bilaterally. He moves all extremities with lower extremity strength 5/5 bilaterally. His smile is symmetrical and his tongue protrudes midline. Vitals VITALS Vital Signs Date Time Temp Pulse Resp B/P (MAP) Pulse Ox O2 Delivery O2 Flow Rate FiO2 02/03/19 08:08 64 128/68 02/03/19 08:08 100 Room Air 02/03/19 07:00 98.2 16 98.2 Labs Labs Laboratory Tests Test 02/01/19 11:09 02/01/19 15:07 02/01/19 20:59 02/02/19 07:54 Glucose (Fingerstick) 152 mg/dL (70-99) 152 mg/dL (70-99) 163 mg/dL (70-99) 135 mg/dL (70-99) Test 02/02/19 12:01 02/02/19 17:04 02/02/19 20:44 02/03/19 04:57 Glucose (Fingerstick) 151 mg/dL (70-99) 190 mg/dL (70-99) 206 mg/dL (70-99) White Blood Count 13.0 x10^3/uL (4.0-11.0) Red Blood Count 2.89 x10^6/uL (4.30-5.70) Hemoglobin 8.5 g/dL (13.0-17.5) Hematocrit 25.6 % (39.0-53.0) Mean Corpuscular Volume 89 fL (79-100) Mean Corpuscular Hemoglobin 29 pg (25-35) Mean Corpuscular Hemoglobin Concent 33 g/dL (31-37) Red Cell Distribution Width 15.9 % (11.5-14.5) Platelet Count 478 x10^3/uL (140-400) Neutrophils (%) (Auto) 66 % (31-73) Lymphocytes (%) (Auto) 16 % (24-48) Monocytes (%) (Auto) 16 % (0-9) Eosinophils (%) (Auto) 1 % (0-3) Basophils (%) (Auto) 1 % (0-3) Neutrophils # (Auto) 8.6 x10^3/uL (1.8-7.7) Lymphocytes # (Auto) 2.1 x10^3/uL (1.0-4.8) Monocytes # (Auto) 2.1 x10^3/uL (0.0-1.1) Eosinophils # (Auto) 0.2 x10^3/uL (0.0-0.7) Basophils # (Auto) 0.1 x10^3/uL (0.0-0.2) Sodium Level 132 mmol/L (136-145) Potassium Level 3.8 mmol/L (3.5-5.1) Chloride Level 97 mmol/L (98-107) Carbon Dioxide Level 27 mmol/L (21-32) Anion Gap 8 (6-14) Blood Urea Nitrogen 9 mg/dL (8-26) Creatinine 0.7 mg/dL (0.7-1.3) Estimated GFR (Cockcroft-Gault) 115.8 BUN/Creatinine Ratio 13 (6-20) Glucose Level 138 mg/dL (70-99) Calcium Level 8.5 mg/dL (8.5-10.1) Total Bilirubin 0.4 mg/dL (0.2-1.0) Aspartate Amino Transf (AST/SGOT) 21 U/L (15-37) Alanine Aminotransferase (ALT/SGPT) 27 U/L (16-63) Alkaline Phosphatase 85 U/L (46-116) Total Protein 6.8 g/dL (6.4-8.2) Albumin 2.2 g/dL (3.4-5.0) Albumin/Globulin Ratio 0.5 (1.0-1.7) Test 02/03/19 07:55 Glucose (Fingerstick) 150 mg/dL (70-99) Laboratory Tests Test 02/02/19 12:01 02/02/19 17:04 02/02/19 20:44 02/03/19 04:57 Glucose (Fingerstick) 151 mg/dL (70-99) 190 mg/dL (70-99) 206 mg/dL (70-99) White Blood Count 13.0 x10^3/uL (4.0-11.0) Red Blood Count 2.89 x10^6/uL (4.30-5.70) Hemoglobin 8.5 g/dL (13.0-17.5) Hematocrit 25.6 % (39.0-53.0) Mean Corpuscular Volume 89 fL (79-100) Mean Corpuscular Hemoglobin 29 pg (25-35) Mean Corpuscular Hemoglobin Concent 33 g/dL (31-37) Red Cell Distribution Width 15.9 % (11.5-14.5) Platelet Count 478 x10^3/uL (140-400) Neutrophils (%) (Auto) 66 % (31-73) Lymphocytes (%) (Auto) 16 % (24-48) Monocytes (%) (Auto) 16 % (0-9) Eosinophils (%) (Auto) 1 % (0-3) Basophils (%) (Auto) 1 % (0-3) Neutrophils # (Auto) 8.6 x10^3/uL (1.8-7.7) Lymphocytes # (Auto) 2.1 x10^3/uL (1.0-4.8) Monocytes # (Auto) 2.1 x10^3/uL (0.0-1.1) Eosinophils # (Auto) 0.2 x10^3/uL (0.0-0.7) Basophils # (Auto) 0.1 x10^3/uL (0.0-0.2) Sodium Level 132 mmol/L (136-145) Potassium Level 3.8 mmol/L (3.5-5.1) Chloride Level 97 mmol/L (98-107) Carbon Dioxide Level 27 mmol/L (21-32) Anion Gap 8 (6-14) Blood Urea Nitrogen 9 mg/dL (8-26) Creatinine 0.7 mg/dL (0.7-1.3) Estimated GFR (Cockcroft-Gault) 115.8 BUN/Creatinine Ratio 13 (6-20) Glucose Level 138 mg/dL (70-99) Calcium Level 8.5 mg/dL (8.5-10.1) Total Bilirubin 0.4 mg/dL (0.2-1.0) Aspartate Amino Transf (AST/SGOT) 21 U/L (15-37) Alanine Aminotransferase (ALT/SGPT) 27 U/L (16-63) Alkaline Phosphatase 85 U/L (46-116) Total Protein 6.8 g/dL (6.4-8.2) Albumin 2.2 g/dL (3.4-5.0) Albumin/Globulin Ratio 0.5 (1.0-1.7) Test 02/03/19 07:55 Glucose (Fingerstick) 150 mg/dL (70-99) Assessment/Plan Assessment/Plan 57-year-old male with extensive atherosclerotic disease in the bilateral external iliac arteries and right femoral artery and right leg life style limiting claudication. -Recommend patient follow-up in our office when the infection has resolved to discuss options for treatment. -Recommend resuming aspirin and Plavix when deemed medically safe. -Recommend continued risk factor modification to include aggressive diabetes management, tobacco and alcohol cessation. GARLAND GONZALES COORDINATOR OF HEALTH SERVICES Feb 03, 2019 10:09
--- NOTE | 2019-02-03 10:22 | PDOC ---
Infectious Disease Note Subjective Subjective Doing ok. Tolerating food. Overall about the same No F/C/s/N/V/D/SOA/rash Still gets pain q 6 hours or so. Hurts more when he lays flat ROS ROS o/w neg Vital Sign Vital Signs Vital Signs Date Time Temp Pulse Resp B/P (MAP) Pulse Ox O2 Delivery O2 Flow Rate FiO2 02/03/19 09:47 Room Air 02/03/19 08:08 64 128/68 02/03/19 08:08 100 02/03/19 07:00 98.2 16 98.2 Physical Exam PHYSICAL EXAM CONSTITUTIONAL: He is pleasant, cooperative, in no acute distress. He wears glasses. HEENT: Pupils equal and reactive. Normal conjunctivae. Oral cavity, pharynx is clear. NECK: Supple, no JVD. LUNGS: Clear to auscultation. HEART: S1, S2. ABDOMEN: Has a drain in the left mid and lower area, does appear to have some purulent material still -stable amount. Has decreased bowel sounds, mild distention, no guarding. EXTREMITIES: No clubbing, cyanosis or gross edema. SKIN: Warm to touch without signs of rash. NEUROLOGIC: He is nonfocal and appropriate. PSYCHIATRIC: Affect is appropriate. Labs Lab Laboratory Tests Test 02/02/19 12:01 02/02/19 17:04 02/02/19 20:44 02/03/19 04:57 Glucose (Fingerstick) 151 mg/dL (70-99) 190 mg/dL (70-99) 206 mg/dL (70-99) White Blood Count 13.0 x10^3/uL (4.0-11.0) Red Blood Count 2.89 x10^6/uL (4.30-5.70) Hemoglobin 8.5 g/dL (13.0-17.5) Hematocrit 25.6 % (39.0-53.0) Mean Corpuscular Volume 89 fL (79-100) Mean Corpuscular Hemoglobin 29 pg (25-35) Mean Corpuscular Hemoglobin Concent 33 g/dL (31-37) Red Cell Distribution Width 15.9 % (11.5-14.5) Platelet Count 478 x10^3/uL (140-400) Neutrophils (%) (Auto) 66 % (31-73) Lymphocytes (%) (Auto) 16 % (24-48) Monocytes (%) (Auto) 16 % (0-9) Eosinophils (%) (Auto) 1 % (0-3) Basophils (%) (Auto) 1 % (0-3) Neutrophils # (Auto) 8.6 x10^3/uL (1.8-7.7) Lymphocytes # (Auto) 2.1 x10^3/uL (1.0-4.8) Monocytes # (Auto) 2.1 x10^3/uL (0.0-1.1) Eosinophils # (Auto) 0.2 x10^3/uL (0.0-0.7) Basophils # (Auto) 0.1 x10^3/uL (0.0-0.2) Sodium Level 132 mmol/L (136-145) Potassium Level 3.8 mmol/L (3.5-5.1) Chloride Level 97 mmol/L (98-107) Carbon Dioxide Level 27 mmol/L (21-32) Anion Gap 8 (6-14) Blood Urea Nitrogen 9 mg/dL (8-26) Creatinine 0.7 mg/dL (0.7-1.3) Estimated GFR (Cockcroft-Gault) 115.8 BUN/Creatinine Ratio 13 (6-20) Glucose Level 138 mg/dL (70-99) Calcium Level 8.5 mg/dL (8.5-10.1) Total Bilirubin 0.4 mg/dL (0.2-1.0) Aspartate Amino Transf (AST/SGOT) 21 U/L (15-37) Alanine Aminotransferase (ALT/SGPT) 27 U/L (16-63) Alkaline Phosphatase 85 U/L (46-116) Total Protein 6.8 g/dL (6.4-8.2) Albumin 2.2 g/dL (3.4-5.0) Albumin/Globulin Ratio 0.5 (1.0-1.7) Test 02/03/19 07:55 Glucose (Fingerstick) 150 mg/dL (70-99) Micro Minimal bibasilar atelectasis. The visualized heart is normal. Liver and spleen appear normal. Cholecystectomy. Diffuse pancreatic calcification consistent with known chronic calcific pancreatitis. There is a cystic lesion in the region of pancreatic head, unchanged since prior exams. No peripancreatic inflammatory changes are seen. Biliary and pancreatic stents redemonstrated. There is development of a fluid collection inferior to the liver which herniates through a defect in the anterior abdominal wall. The exact size of this collection is difficult to measure, however measures to the order of 8.8 cm transverse by 6.2 cm AP x6.0 cm cranial caudal dimension. Diffuse thickening of the stomach appiah noted. Both adrenal glands and bilateral kidneys are normal in size with symmetric excretion of contrast via both kidneys. Small and large bowel loops are nondilated and unremarkable. Appendix is contrast-filled. Urinary bladder is distended. Sigmoid diverticulosis. Streak artifact emanating from right hip arthroplasty. Prostatomegaly with calcifications. No pelvic fluid collection is seen. Spondylotic changes with grade 1 anterolisthesis of L4 over L5. Degenerative disease at L5-S1. IMPRESSION: Findings consistent with chronic calcific pancreatitis redemonstrated with biliary and pancreatic stent in place. Cystic mass in relation to the pancreatic tail consistent with a pancreatic pseudocyst is unchanged. Interval development of a fluid collection in the infrahepatic region which herniates through the abdominal wall defect, perhaps a new pseudocyst . Sigmoid diverticulosis without acute diverticulitis. Objective Assessment Abd fluid collection - cults pending - a lot of inflammatory cells - ? source still Leukocytosis - mild increase today but clinically stable? reactive H/o Pancreatitis with stent Tobacco abuse Plan Plan of Care Post drain and cults pending - added Meropenem 01/31 Add Procalcitonin F/u labs in am and cults If WBC worsens or he spikes will broaden coverage and may need CT D/w nursing JUAN MARSH MD Feb 03, 2019 10:22
--- NOTE | 2019-02-03 10:25 | PDOC ---
Objective: Objective: D/w nurse - tolerating PO, c/o abd pain, purulent drainage. Vital Signs: Vital Signs Date Time Temp Pulse Resp B/P (MAP) Pulse Ox O2 Delivery O2 Flow Rate FiO2 02/03/19 09:47 Room Air 02/03/19 08:08 64 128/68 02/03/19 08:08 100 02/03/19 07:00 98.2 16 98.2 Labs: Laboratory Tests Test 02/02/19 12:01 02/02/19 17:04 02/02/19 20:44 02/03/19 04:57 Glucose (Fingerstick) 151 mg/dL 190 mg/dL 206 mg/dL White Blood Count 13.0 x10^3/uL Red Blood Count 2.89 x10^6/uL Hemoglobin 8.5 g/dL Hematocrit 25.6 % Mean Corpuscular Volume 89 fL Mean Corpuscular Hemoglobin 29 pg Mean Corpuscular Hemoglobin Concent 33 g/dL Red Cell Distribution Width 15.9 % Platelet Count 478 x10^3/uL Neutrophils (%) (Auto) 66 % Lymphocytes (%) (Auto) 16 % Monocytes (%) (Auto) 16 % Eosinophils (%) (Auto) 1 % Basophils (%) (Auto) 1 % Neutrophils # (Auto) 8.6 x10^3/uL Lymphocytes # (Auto) 2.1 x10^3/uL Monocytes # (Auto) 2.1 x10^3/uL Eosinophils # (Auto) 0.2 x10^3/uL Basophils # (Auto) 0.1 x10^3/uL Platelet Estimate Pending Sodium Level 132 mmol/L Potassium Level 3.8 mmol/L Chloride Level 97 mmol/L Carbon Dioxide Level 27 mmol/L Anion Gap 8 Blood Urea Nitrogen 9 mg/dL Creatinine 0.7 mg/dL Estimated GFR (Cockcroft-Gault) 115.8 BUN/Creatinine Ratio 13 Glucose Level 138 mg/dL Calcium Level 8.5 mg/dL Total Bilirubin 0.4 mg/dL Aspartate Amino Transf (AST/SGOT) 21 U/L Alanine Aminotransferase (ALT/SGPT) 27 U/L Alkaline Phosphatase 85 U/L Total Protein 6.8 g/dL Albumin 2.2 g/dL Albumin/Globulin Ratio 0.5 Test 02/03/19 07:55 Glucose (Fingerstick) 150 mg/dL PE: GEN: NAD NEURO/PSYCH: sleeping soundly, did not awaken when I call his name A/P: Abd fluid collection s/p drain [place] Chronic pancreatitis - alcohol, s/p cholecystectomy LE atherosclerotic disease -- Continue same per GI. DEYA SHAFFER Feb 03, 2019 10:25
[2019-02-03] MEDS ORDERED: POLYETHYLENE GLYCOL 3350 17 GM PACKET. PO PRN (10:30)
[2019-02-03] MEDS ORDERED: BISACODYL 5 MG TABLET.DR. PO PRN (10:30)
[2019-02-03 11:00] VITALS: BP 140/66
[2019-02-03 11:08] LABS: % BANDS 5 % (0-9); % EOS 1 % (0-5); % LYMPHS 17 % (24-48); % MONOS 11 % (0-10); % SEGS 66 % (35-66); PLT ESTIMATE INCREASED (ADEQUATE)
[2019-02-03 11:09] LABS: ANISOCYTOSIS SLIGHT; OVALOCYTES FEW; POLYCHROMASIA SLIGHT; TARGET CELLS OCC
[2019-02-03] MEDS: POLYETHYLENE GLYCOL 3350 17 GM PACKET. PO SCH (11:20)
--- NOTE | 2019-02-03 12:16 | PN ---
DATE: 02/03/2019 SUBJECTIVE: The patient is sitting on the edge of the bed comfortably in no apparent distress. He continued to complain of abdominal pain, though generally much better. The cultures and sensitivity is still pending at the time of this dictation. He was seen in consultation by the vascular surgeon and basically they recommended that the patient follow up in their office after the infection has resolved. They also recommended that he could continue with aspirin and Plavix and to continue to quit smoking and drinking alcohol as part of lifestyle modification. PHYSICAL EXAMINATION: GENERAL: When I examined him this afternoon, he looked well and was clearly in no apparent respiratory distress, somewhat pale, but no jaundice, cyanosis or thyromegaly. No jugular venous distention. No limb edema. VITAL SIGNS: Her heart rate was 62, blood pressure was 140/66, temperature was 97.8, respiratory rate was 16, and oxygen saturation was 95% on room air. HEAD, EYES, EARS, NOSE AND THROAT: Showed normocephalic, atraumatic. NECK: Supple. HEART: Showed normal first and second heart sounds. No gallop or murmur. CHEST: Clear to auscultation. No crepitation or rhonchi. ABDOMEN: Distended, soft, nontender. NEUROLOGIC: He was awake, alert, responding appropriately. All cranial nerves are intact. He moves extremities without difficulty. His intake over the last 24 hours was 1500, no output was recorded. LABORATORY DATA: As of this morning, his white cell count went up to 13,000, hemoglobin 8.5, hematocrit 25, MCV 89 and platelet count 478,000. His chemistry showed serum sodium of 132, potassium 3.8, chloride 97, bicarbonate 27, anion gap of 8, BUN 9, creatinine 0.7, estimated GFR was 159 mL per minute, his glucose 138, calcium was 8.5. Total bilirubin, AST, ALT, alkaline phosphatase were normal. Total protein was 6.8, albumin 2.2. ASSESSMENT: 1. Abdominal fluid collection, abscess versus pseudocyst. The patient has underwent placement of ALFONSO drain. Fluid was submitted for culture and sensitivity, the result of which is still pending. 2. Chronic pancreatitis, pancreatic and biliary stent as well as pancreatic pseudocyst in the tail of the pancreas. 3. Type 2 diabetes mellitus. 4. Tobacco and alcohol abuse. 5. Hypertension. 6. Chronic obstructive pulmonary disease. PLAN: Plan is to continue with IV antibiotic for now. Await the culture and sensitivity. AUSTIN ESPINOZA MD DR: ANAHY/niranjan JOB#: [id number] / [id number]
--- NOTE | 2019-02-03 13:08 | NUR ---
SW following. Discussed with RN, ALFONSO drain, IV abx. Cultures and sensitivities pending. SW will continue to follow.
[2019-02-03 15:00] VITALS: BP 144/63
[2019-02-03 19:15] VITALS: BP 141/66
[2019-02-03] MEDS: INSULIN GLARGINE SYRINGE. SQ SCH (21:28)
[2019-02-03] MEDS: NICOTINE 14MG PATCH. TD SCH (21:28)
[2019-02-03 23:00] VITALS: BP 142/68
[2019-02-04 03:00] VITALS: BP 120/63
[2019-02-04] MEDS: HYDROmorphone 2 MG/ML VIAL IV PRN ×6 (03:54→21:32)
[2019-02-04] MEDS: MEROPENEM 500 MG in IV NORMAL SALINE 50ML 50 ML IV SCH ×5 (05:37→18:33)
[2019-02-04] MEDS: PANTOPRAZOLE 40 MG TABLET.DR. PO SCH (05:38)
[2019-02-04] MEDS: HYDROcodone/APAP 5/325MG 1 TAB TABLET PO PRN ×3 (05:40→20:18)
[2019-02-04 05:59] LABS: BASO # 0.1 x10^3/uL (0.0-0.2); BASO % 1 % (0-3); EOS # 0.2 x10^3/uL (0.0-0.7); EOS % 1 % (0-3); HEMATOCRIT 26.3 % (39.0-53.0); HEMOGLOBIN 8.5 g/dL (13.0-17.5); LYMPH # 2.4 x10^3/uL (1.0-4.8); LYMPH % 17 % (24-48); MEAN CORPUSCULAR HEMOGLOBIN 29 pg (25-35); MEAN CORPUSCULAR HGB CONC 32 g/dL (31-37); MEAN CORPUSCULAR VOLUME 88 fL (79-100); MONO # 2.3 x10^3/uL (0.0-1.1); MONO % 17 % (0-9); NEUT # 8.7 x10^3/uL (1.8-7.7); NEUT % 64 % (31-73); PLATELET COUNT 471 x10^3/uL (140-400); RED BLOOD COUNT 2.98 x10^6/uL (4.30-5.70); RED CELL DISTRIBUTION WIDTH 16.1 % (11.5-14.5); WHITE BLOOD COUNT 13.6 x10^3/uL (4.0-11.0)
[2019-02-04 06:16] LABS: ALBUMIN 2.4 g/dL (3.4-5.0); ALBUMIN/GLOBULIN RATIO 0.6 (1.0-1.7); CALCIUM 8.6 mg/dL (8.5-10.1); CREATININE 0.7 mg/dL (0.7-1.3); GFR 115.8; POTASSIUM 4.2 mmol/L (3.5-5.1); TOTAL BILIRUBIN 0.2 mg/dL (0.2-1.0); TOTAL PROTEIN 6.5 g/dL (6.4-8.2)
[2019-02-04 07:00] VITALS: BP 129/88
--- NOTE | 2019-02-04 08:07 | PDOC ---
SURGICAL PROGRESS NOTE Subjective Pt with c/o mild pain, but improved Vital Signs Vital Signs Date Time Temp Pulse Resp B/P (MAP) Pulse Ox O2 Delivery O2 Flow Rate FiO2 02/04/19 07:00 97.6 61 18 129/88 (102) 96 Room Air 97.6 I&O Intake and Output 02/04/19 07:00 Intake Total 820 ml Output Total 41 ml Balance 779 ml Intake Oral 820 ml Urine/Stool Mix 1 ml Drainage Total 40 ml # Voids 3 General: Alert, Oriented X3, Cooperative, No acute distress Abdomen: Soft, Other (TTP over abscess) Labs Laboratory Tests Test 02/02/19 12:01 02/02/19 17:04 02/02/19 20:44 02/03/19 04:57 Glucose (Fingerstick) 151 mg/dL (70-99) 190 mg/dL (70-99) 206 mg/dL (70-99) White Blood Count 13.0 x10^3/uL (4.0-11.0) Red Blood Count 2.89 x10^6/uL (4.30-5.70) Hemoglobin 8.5 g/dL (13.0-17.5) Hematocrit 25.6 % (39.0-53.0) Mean Corpuscular Volume 89 fL (79-100) Mean Corpuscular Hemoglobin 29 pg (25-35) Mean Corpuscular Hemoglobin Concent 33 g/dL (31-37) Red Cell Distribution Width 15.9 % (11.5-14.5) Platelet Count 478 x10^3/uL (140-400) Neutrophils (%) (Auto) 66 % (31-73) Lymphocytes (%) (Auto) 16 % (24-48) Monocytes (%) (Auto) 16 % (0-9) Eosinophils (%) (Auto) 1 % (0-3) Basophils (%) (Auto) 1 % (0-3) Neutrophils # (Auto) 8.6 x10^3/uL (1.8-7.7) Lymphocytes # (Auto) 2.1 x10^3/uL (1.0-4.8) Monocytes # (Auto) 2.1 x10^3/uL (0.0-1.1) Eosinophils # (Auto) 0.2 x10^3/uL (0.0-0.7) Basophils # (Auto) 0.1 x10^3/uL (0.0-0.2) Segmented Neutrophils % 66 % (35-66) Band Neutrophils % 5 % (0-9) Lymphocytes % 17 % (24-48) Monocytes % 11 % (0-10) Eosinophils % 1 % (0-5) Platelet Estimate Increased (ADEQUATE) Polychromasia Slight Anisocytosis Slight Target Cells Occ Ovalocytes Few Sodium Level 132 mmol/L (136-145) Potassium Level 3.8 mmol/L (3.5-5.1) Chloride Level 97 mmol/L (98-107) Carbon Dioxide Level 27 mmol/L (21-32) Anion Gap 8 (6-14) Blood Urea Nitrogen 9 mg/dL (8-26) Creatinine 0.7 mg/dL (0.7-1.3) Estimated GFR (Cockcroft-Gault) 115.8 BUN/Creatinine Ratio 13 (6-20) Glucose Level 138 mg/dL (70-99) Calcium Level 8.5 mg/dL (8.5-10.1) Total Bilirubin 0.4 mg/dL (0.2-1.0) Aspartate Amino Transf (AST/SGOT) 21 U/L (15-37) Alanine Aminotransferase (ALT/SGPT) 27 U/L (16-63) Alkaline Phosphatase 85 U/L (46-116) Total Protein 6.8 g/dL (6.4-8.2) Albumin 2.2 g/dL (3.4-5.0) Albumin/Globulin Ratio 0.5 (1.0-1.7) Procalcitonin 0.47 ng/mL (0.00-0.10) Test 02/03/19 07:55 02/03/19 10:54 02/03/19 16:59 02/03/19 20:45 Glucose (Fingerstick) 150 mg/dL (70-99) 210 mg/dL (70-99) 167 mg/dL (70-99) 189 mg/dL (70-99) Test 02/04/19 05:30 02/04/19 07:22 White Blood Count 13.6 x10^3/uL (4.0-11.0) Red Blood Count 2.98 x10^6/uL (4.30-5.70) Hemoglobin 8.5 g/dL (13.0-17.5) Hematocrit 26.3 % (39.0-53.0) Mean Corpuscular Volume 88 fL (79-100) Mean Corpuscular Hemoglobin 29 pg (25-35) Mean Corpuscular Hemoglobin Concent 32 g/dL (31-37) Red Cell Distribution Width 16.1 % (11.5-14.5) Platelet Count 471 x10^3/uL (140-400) Neutrophils (%) (Auto) 64 % (31-73) Lymphocytes (%) (Auto) 17 % (24-48) Monocytes (%) (Auto) 17 % (0-9) Eosinophils (%) (Auto) 1 % (0-3) Basophils (%) (Auto) 1 % (0-3) Neutrophils # (Auto) 8.7 x10^3/uL (1.8-7.7) Lymphocytes # (Auto) 2.4 x10^3/uL (1.0-4.8) Monocytes # (Auto) 2.3 x10^3/uL (0.0-1.1) Eosinophils # (Auto) 0.2 x10^3/uL (0.0-0.7) Basophils # (Auto) 0.1 x10^3/uL (0.0-0.2) Sodium Level 136 mmol/L (136-145) Potassium Level 4.2 mmol/L (3.5-5.1) Chloride Level 98 mmol/L (98-107) Carbon Dioxide Level 31 mmol/L (21-32) Anion Gap 7 (6-14) Blood Urea Nitrogen 11 mg/dL (8-26) Creatinine 0.7 mg/dL (0.7-1.3) Estimated GFR (Cockcroft-Gault) 115.8 BUN/Creatinine Ratio 16 (6-20) Glucose Level 80 mg/dL (70-99) Calcium Level 8.6 mg/dL (8.5-10.1) Total Bilirubin 0.2 mg/dL (0.2-1.0) Aspartate Amino Transf (AST/SGOT) 24 U/L (15-37) Alanine Aminotransferase (ALT/SGPT) 31 U/L (16-63) Alkaline Phosphatase 98 U/L (46-116) Total Protein 6.5 g/dL (6.4-8.2) Albumin 2.4 g/dL (3.4-5.0) Albumin/Globulin Ratio 0.6 (1.0-1.7) Glucose (Fingerstick) 97 mg/dL (70-99) Laboratory Tests Test 02/03/19 10:54 02/03/19 16:59 02/03/19 20:45 02/04/19 05:30 Glucose (Fingerstick) 210 mg/dL (70-99) 167 mg/dL (70-99) 189 mg/dL (70-99) White Blood Count 13.6 x10^3/uL (4.0-11.0) Red Blood Count 2.98 x10^6/uL (4.30-5.70) Hemoglobin 8.5 g/dL (13.0-17.5) Hematocrit 26.3 % (39.0-53.0) Mean Corpuscular Volume 88 fL (79-100) Mean Corpuscular Hemoglobin 29 pg (25-35) Mean Corpuscular Hemoglobin Concent 32 g/dL (31-37) Red Cell Distribution Width 16.1 % (11.5-14.5) Platelet Count 471 x10^3/uL (140-400) Neutrophils (%) (Auto) 64 % (31-73) Lymphocytes (%) (Auto) 17 % (24-48) Monocytes (%) (Auto) 17 % (0-9) Eosinophils (%) (Auto) 1 % (0-3) Basophils (%) (Auto) 1 % (0-3) Neutrophils # (Auto) 8.7 x10^3/uL (1.8-7.7) Lymphocytes # (Auto) 2.4 x10^3/uL (1.0-4.8) Monocytes # (Auto) 2.3 x10^3/uL (0.0-1.1) Eosinophils # (Auto) 0.2 x10^3/uL (0.0-0.7) Basophils # (Auto) 0.1 x10^3/uL (0.0-0.2) Sodium Level 136 mmol/L (136-145) Potassium Level 4.2 mmol/L (3.5-5.1) Chloride Level 98 mmol/L (98-107) Carbon Dioxide Level 31 mmol/L (21-32) Anion Gap 7 (6-14) Blood Urea Nitrogen 11 mg/dL (8-26) Creatinine 0.7 mg/dL (0.7-1.3) Estimated GFR (Cockcroft-Gault) 115.8 BUN/Creatinine Ratio 16 (6-20) Glucose Level 80 mg/dL (70-99) Calcium Level 8.6 mg/dL (8.5-10.1) Total Bilirubin 0.2 mg/dL (0.2-1.0) Aspartate Amino Transf (AST/SGOT) 24 U/L (15-37) Alanine Aminotransferase (ALT/SGPT) 31 U/L (16-63) Alkaline Phosphatase 98 U/L (46-116) Total Protein 6.5 g/dL (6.4-8.2) Albumin 2.4 g/dL (3.4-5.0) Albumin/Globulin Ratio 0.6 (1.0-1.7) Test 02/04/19 07:22 Glucose (Fingerstick) 97 mg/dL (70-99) Problem List abd abscess cont drain and abx. OK to d/c home when cleared by other services. JODIE RUIZ MD Feb 04, 2019 08:07
[2019-02-04] MEDS: POLYETHYLENE GLYCOL 3350 17 GM PACKET. PO SCH (08:20)
[2019-02-04] MEDS: LACTOBACILLUS RHAMNOSUS GG 1 CAPSULE. PO SCH ×2 (08:20→20:19)
[2019-02-04] MEDS: MULTIVITAMIN with MINERAL TABLET. PO SCH (08:20)
--- NOTE | 2019-02-04 10:40 | PDOC ---
Subjective: Subjective: Feeling better, would like to go home. No problems eating or stooling, abd pain improved. Objective: Vital Signs: Vital Signs Date Time Temp Pulse Resp B/P (MAP) Pulse Ox O2 Delivery O2 Flow Rate FiO2 02/04/19 08:50 Room Air 02/04/19 08:20 61 129/88 02/04/19 07:00 97.6 18 96 97.6 Labs: Laboratory Tests Test 02/03/19 10:54 02/03/19 16:59 02/03/19 20:45 02/04/19 05:30 Glucose (Fingerstick) 210 mg/dL 167 mg/dL 189 mg/dL White Blood Count 13.6 x10^3/uL Red Blood Count 2.98 x10^6/uL Hemoglobin 8.5 g/dL Hematocrit 26.3 % Mean Corpuscular Volume 88 fL Mean Corpuscular Hemoglobin 29 pg Mean Corpuscular Hemoglobin Concent 32 g/dL Red Cell Distribution Width 16.1 % Platelet Count 471 x10^3/uL Neutrophils (%) (Auto) 64 % Lymphocytes (%) (Auto) 17 % Monocytes (%) (Auto) 17 % Eosinophils (%) (Auto) 1 % Basophils (%) (Auto) 1 % Neutrophils # (Auto) 8.7 x10^3/uL Lymphocytes # (Auto) 2.4 x10^3/uL Monocytes # (Auto) 2.3 x10^3/uL Eosinophils # (Auto) 0.2 x10^3/uL Basophils # (Auto) 0.1 x10^3/uL Sodium Level 136 mmol/L Potassium Level 4.2 mmol/L Chloride Level 98 mmol/L Carbon Dioxide Level 31 mmol/L Anion Gap 7 Blood Urea Nitrogen 11 mg/dL Creatinine 0.7 mg/dL Estimated GFR (Cockcroft-Gault) 115.8 BUN/Creatinine Ratio 16 Glucose Level 80 mg/dL Calcium Level 8.6 mg/dL Total Bilirubin 0.2 mg/dL Aspartate Amino Transf (AST/SGOT) 24 U/L Alanine Aminotransferase (ALT/SGPT) 31 U/L Alkaline Phosphatase 98 U/L Total Protein 6.5 g/dL Albumin 2.4 g/dL Albumin/Globulin Ratio 0.6 Test 02/04/19 07:22 Glucose (Fingerstick) 97 mg/dL ANAEROBIC-AEROBIC CULTURE Preliminary Preliminary report ANAEROBIC RES 1 Preliminary Comment No anaerobes recovered in 48 hours. AEROBIC CULT Final Preliminary report Final report AEROBIC RES 1 Final Comment No growth in 36 - 48 hours. No growth in 56 - 72 hours. GRAM STAIN Final Final report GRAM STAIN RES 1 Final Comment Moderate amount of white blood cells. GRAM STAIN RES 2 Final No organisms seen PE: GEN: NAD LUNGS: CTAB HEART: RRR ABD: mildly tender around drain, drainage less/thinner NEURO/PSYCH: A & O 3 A/P: Abd fluid collection s/p drain - atbx per ID [place] Chronic pancreatitis - alcohol, s/p cholecystectomy -- Continue same, consider outpt scopes re: [place]. DEYA SHAFFER Feb 04, 2019 10:40
[2019-02-04 11:00] VITALS: BP 150/65
--- NOTE | 2019-02-04 12:47 | PDOC ---
Infectious Disease Note Subjective Subjective Doing ok. Tolerating food. Overall about the same No F/C/s/N/V/D/SOA/rash Still gets pain q 6 hours or so. Hurts more when he lays flat Vital Sign Vital Signs Vital Signs Date Time Temp Pulse Resp B/P (MAP) Pulse Ox O2 Delivery O2 Flow Rate FiO2 02/04/19 12:10 Room Air 02/04/19 11:00 97.8 68 18 150/65 (93) 94 97.8 Physical Exam PHYSICAL EXAM CONSTITUTIONAL: He is pleasant, cooperative, in no acute distress. He wears glasses. HEENT: Pupils equal and reactive. Normal conjunctivae. Oral cavity, pharynx is clear. NECK: Supple, no JVD. LUNGS: Clear to auscultation. HEART: S1, S2. ABDOMEN: Has a drain in the left mid and lower area, does appear to have some purulent material still -stable amount. Has decreased bowel sounds, mild distention, no guarding. EXTREMITIES: No clubbing, cyanosis or gross edema. SKIN: Warm to touch without signs of rash. NEUROLOGIC: He is nonfocal and appropriate. PSYCHIATRIC: Affect is appropriate. Labs Lab Laboratory Tests Test 02/03/19 16:59 02/03/19 20:45 02/04/19 05:30 02/04/19 07:22 Glucose (Fingerstick) 167 mg/dL (70-99) 189 mg/dL (70-99) 97 mg/dL (70-99) White Blood Count 13.6 x10^3/uL (4.0-11.0) Red Blood Count 2.98 x10^6/uL (4.30-5.70) Hemoglobin 8.5 g/dL (13.0-17.5) Hematocrit 26.3 % (39.0-53.0) Mean Corpuscular Volume 88 fL (79-100) Mean Corpuscular Hemoglobin 29 pg (25-35) Mean Corpuscular Hemoglobin Concent 32 g/dL (31-37) Red Cell Distribution Width 16.1 % (11.5-14.5) Platelet Count 471 x10^3/uL (140-400) Neutrophils (%) (Auto) 64 % (31-73) Lymphocytes (%) (Auto) 17 % (24-48) Monocytes (%) (Auto) 17 % (0-9) Eosinophils (%) (Auto) 1 % (0-3) Basophils (%) (Auto) 1 % (0-3) Neutrophils # (Auto) 8.7 x10^3/uL (1.8-7.7) Lymphocytes # (Auto) 2.4 x10^3/uL (1.0-4.8) Monocytes # (Auto) 2.3 x10^3/uL (0.0-1.1) Eosinophils # (Auto) 0.2 x10^3/uL (0.0-0.7) Basophils # (Auto) 0.1 x10^3/uL (0.0-0.2) Sodium Level 136 mmol/L (136-145) Potassium Level 4.2 mmol/L (3.5-5.1) Chloride Level 98 mmol/L (98-107) Carbon Dioxide Level 31 mmol/L (21-32) Anion Gap 7 (6-14) Blood Urea Nitrogen 11 mg/dL (8-26) Creatinine 0.7 mg/dL (0.7-1.3) Estimated GFR (Cockcroft-Gault) 115.8 BUN/Creatinine Ratio 16 (6-20) Glucose Level 80 mg/dL (70-99) Calcium Level 8.6 mg/dL (8.5-10.1) Total Bilirubin 0.2 mg/dL (0.2-1.0) Aspartate Amino Transf (AST/SGOT) 24 U/L (15-37) Alanine Aminotransferase (ALT/SGPT) 31 U/L (16-63) Alkaline Phosphatase 98 U/L (46-116) Total Protein 6.5 g/dL (6.4-8.2) Albumin 2.4 g/dL (3.4-5.0) Albumin/Globulin Ratio 0.6 (1.0-1.7) Test 02/04/19 10:46 Glucose (Fingerstick) 151 mg/dL (70-99) Micro Minimal bibasilar atelectasis. The visualized heart is normal. Liver and spleen appear normal. Cholecystectomy. Diffuse pancreatic calcification consistent with known chronic calcific pancreatitis. There is a cystic lesion in the region of pancreatic head, unchanged since prior exams. No peripancreatic inflammatory changes are seen. Biliary and pancreatic stents redemonstrated. There is development of a fluid collection inferior to the liver which herniates through a defect in the anterior abdominal wall. The exact size of this collection is difficult to measure, however measures to the order of 8.8 cm transverse by 6.2 cm AP x6.0 cm cranial caudal dimension. Diffuse thickening of the stomach appiah noted. Both adrenal glands and bilateral kidneys are normal in size with symmetric excretion of contrast via both kidneys. Small and large bowel loops are nondilated and unremarkable. Appendix is contrast-filled. Urinary bladder is distended. Sigmoid diverticulosis. Streak artifact emanating from right hip arthroplasty. Prostatomegaly with calcifications. No pelvic fluid collection is seen. Spondylotic changes with grade 1 anterolisthesis of L4 over L5. Degenerative disease at L5-S1. IMPRESSION: Findings consistent with chronic calcific pancreatitis redemonstrated with biliary and pancreatic stent in place. Cystic mass in relation to the pancreatic tail consistent with a pancreatic pseudocyst is unchanged. Interval development of a fluid collection in the infrahepatic region which herniates through the abdominal wall defect, perhaps a new pseudocyst . Sigmoid diverticulosis without acute diverticulitis. Objective Assessment Abd fluid collection - cults pending - a lot of inflammatory cells - ? source still Leukocytosis - trending H/o Pancreatitis with stent Tobacco abuse Plan Plan of Care Repeat CT with trending WBC mild increased Proca Post drain and cults pending - added Meropenem 01/31 F/u labs in am and cults D/w nursing JUAN MARSH MD Feb 04, 2019 12:47
[2019-02-04] MEDS ORDERED: IOHEXOL 300 MG/ML 100ML VIAL. IV ONE (13:45)
[2019-02-04] MEDS ORDERED: CONTRAST GIVEN. MC PRN (13:45)
[2019-02-04] MEDS ORDERED: IOHEXOL 240 MG/ML 50ML VIAL. PO ONE (13:45)
--- NOTE | 2019-02-04 13:49 | NUR ---
SW following. Discussed with RN, pt having cat scan today. Cultures pending. SW will continue to follow.
[2019-02-04 15:00] VITALS: BP 151/59
--- NOTE | 2019-02-04 17:24 | RAD ---
EXAM: CT ABDOMEN/PELVIS WITH CONTRAST. HISTORY: Increasing leukocytosis, abdominal abscess. TECHNIQUE: Computed tomography of the abdomen and pelvis was performed after the intravenous administration of iodinated contrast. COMPARISON: 01/29/2019. FINDINGS: Lung windows through the visualized portions of the bases reveal mild atelectasis. Coronary atherosclerotic calcifications are noted. Bone windows reveal no suspicious lesions. A right total hip arthroplasty is noted. There is grade 1 anterolisthesis at L4-5. A percutaneous drain enters the anterior abdomen in the subxiphoid region. A subcutaneous fluid collection measures 6.7 x 3.2 cm. The drain traverses this collection and has its loop inferior to the left hepatic lobe. The previously noted collection at that site has almost completely resolved with a small residual component lateral to the drain measuring 3.0 x 1.8 cm. A fluid collection at the pancreatic tail measures 4.2 x 3.7 cm and is consistent with a pseudocyst. There is a metallic stent within the distal common duct. There is a plastic stent within the distal pancreatic duct. Pancreatic parenchymal calcifications indicate chronic pancreatitis. No clear pancreatic mass is appreciable. Sigmoid diverticulosis is mild. There is no small bowel obstruction. The appendix is not inflamed. There are no pathologically enlarged lymph nodes. The gallbladder is surgically absent. The spleen, adrenal glands and kidneys are unremarkable. IMPRESSION: 1. The drained infrahepatic abscess has mostly resolved. A small collection lateral to the drain measures 3.0 x 1.8 cm. 2. A subcutaneous collection along the drain remains and measures 6.7 x 3.2 cm. 3. 4.2 cm pseudocyst at the pancreatic tail. Changes of chronic pancreatitis. A metallic common duct stent is in place. *One or more of the following individualized dose reduction techniques were utilized for this examination: 1. Automated exposure control. 2. Adjustment of the mA and/or kV according to patient size. 3. Use of iterative reconstruction technique. Electronically signed by: Radha Muhammad MD (02/04/2019 5:21 PM) [facility]
[2019-02-04 19:00] VITALS: BP 137/67
[2019-02-04] MEDS: NICOTINE 14MG PATCH. TD SCH (20:19)
[2019-02-04] MEDS: INSULIN GLARGINE SYRINGE. SQ SCH (20:29)
[2019-02-04] MEDS: IV NORMAL SALINE 1000ML BAG 1,000 ML IV SCH (21:33)
[2019-02-04 23:00] VITALS: BP 144/55
[2019-02-05] MEDS: MEROPENEM 500 MG in IV NORMAL SALINE 50ML 50 ML IV SCH ×5 (00:26→22:24)
[2019-02-05] MEDS: HYDROmorphone 2 MG/ML VIAL IV PRN ×6 (00:30→20:19)
--- NOTE | 2019-02-05 00:55 | PN ---
DATE: 02/04/2019 SUBJECTIVE: The patient is resting, slightly propped up in bed, in no apparent distress. He wants to go home, so far they have no culture. PHYSICAL EXAMINATION: GENERAL: When I examined him, he looked well and was clearly in no apparent respiratory distress, slightly pale, no jaundice, cyanosis or thyromegaly. No jugular venous distention. No limb edema. VITAL SIGNS: His heart rate was 61, blood pressure was 129/88, temperature was 97.6, respiratory rate was 18 and oxygen saturation was 96%. HEAD, EYES, EARS, NOSE AND THROAT: Normocephalic, atraumatic. NECK: Supple. HEART: Showed normal first and second heart sounds. No gallop or murmur. CHEST: Clear to auscultation. No crepitation or rhonchi. ABDOMEN: Distended, soft with a ALFONSO drain to the abdominal fluid collection. INTAKE AND OUTPUT: His intake over the last 24 hours was 1175, output 420. LABORATORY DATA: His lab work this morning showed a white cell count of 13,600, hemoglobin 8.5, hematocrit 26, MCV 88 and platelet count of 471,000. Serum sodium 136, potassium 4.2, chloride 98, bicarbonate 31, anion gap of 7, BUN 11, creatinine 0.7, estimated GFR was 159 mL per minute. Her glucose was 80, calcium was 8.6. Total bilirubin, AST, ALT, alkaline phosphatase were normal. Total protein was 6.5, albumin 2.4. ASSESSMENT: Abdominal abscess. PLAN: Continue with drainage and antibiotic. So far, the culture and sensitivity is still pending. I will wait for the decision by the Infectious Disease and if it is okay with him to be discharged, we can discharge him home today. AUSTIN ESPINOZA MD DR: ANAHY/niranajn JOB#: [id number] / [id number]
[2019-02-05 03:00] VITALS: BP 130/55
[2019-02-05] MEDS: HYDROcodone/APAP 5/325MG 1 TAB TABLET PO PRN ×4 (03:12→22:25)
[2019-02-05 04:47] LABS: BASO # 0.1 x10^3/uL (0.0-0.2); BASO % 1 % (0-3); EOS # 0.2 x10^3/uL (0.0-0.7); EOS % 1 % (0-3); HEMATOCRIT 23.9 % (39.0-53.0); HEMOGLOBIN 7.8 g/dL (13.0-17.5); LYMPH # 1.9 x10^3/uL (1.0-4.8); LYMPH % 15 % (24-48); MEAN CORPUSCULAR HEMOGLOBIN 29 pg (25-35); MEAN CORPUSCULAR HGB CONC 33 g/dL (31-37); MEAN CORPUSCULAR VOLUME 88 fL (79-100); MONO % 15 % (0-9); NEUT # 8.8 x10^3/uL (1.8-7.7); NEUT % 68 % (31-73); PLATELET COUNT 433 x10^3/uL (140-400); RED BLOOD COUNT 2.72 x10^6/uL (4.30-5.70); RED CELL DISTRIBUTION WIDTH 15.9 % (11.5-14.5); WHITE BLOOD COUNT 13.1 x10^3/uL (4.0-11.0)
[2019-02-05 04:57] LABS: CALCIUM 8.9 mg/dL (8.5-10.1); CREATININE 0.7 mg/dL (0.7-1.3); GFR 115.8; POTASSIUM 3.8 mmol/L (3.5-5.1)
[2019-02-05] MEDS: IV NORMAL SALINE 1000ML BAG 1,000 ML IV SCH ×2 (05:17→22:25)
[2019-02-05] MEDS: PANTOPRAZOLE 40 MG TABLET.DR. PO SCH (05:17)
[2019-02-05 07:00] VITALS: BP 137/59
[2019-02-05] MEDS: POLYETHYLENE GLYCOL 3350 17 GM PACKET. PO SCH (09:29)
[2019-02-05] MEDS: LACTOBACILLUS RHAMNOSUS GG 1 CAPSULE. PO SCH ×2 (09:30→20:17)
[2019-02-05] MEDS: MULTIVITAMIN with MINERAL TABLET. PO SCH (09:30)
--- NOTE | 2019-02-05 09:52 | PN ---
DATE: 02/05/2019 SUBJECTIVE: The patient is resting, sitting propped up in bed, in no apparent distress. Apparently, his white cell count has risen over the last 2 days, and therefore, a repeat CT scan of the abdomen was done, which showed that the drained intrahepatic abscess has mostly resolved. A small collection lateral to that drain measures 3 x 1.0 cm subcutaneous collection along the drain remains and measures 6.7 x 3.2 cm. He has also 4.2-cm pseudocyst in the pancreatic tail, change of chronic pancreatitis and metallic common duct stent is in place. PHYSICAL EXAMINATION: GENERAL: When I saw him this morning, he looked well and was clearly in no apparent respiratory distress. He was pale. No jaundice, cyanosis, or thyromegaly. No jugular venous distention. No lower limb edema. VITAL SIGNS: His heart rate was 55, blood pressure was 137/59, temperature was 98.1, respiratory rate was 16, and oxygen saturation was 93%. The rest of clinical exam is stable, has not really changed. His intake over the last 24 hours was 820, no output was recorded. His lab work this morning showed a white cell count of 13,000; hemoglobin 7.8; hematocrit 23.9; MCV 88; and platelet count of 133,000. Serum sodium was 133, potassium 3.8, chloride 97, bicarbonate 32, anion gap of 4, BUN 10, creatinine 0.7, estimated GFR was 115 mL per minute, his glucose 117, calcium was 8.9. ASSESSMENT: 1. Abdominal abscess that according to CT scan has mostly resolved; however, there is a small collection lateral to the drain, which is 3 x 1.0 cm and there is subcutaneous collection along the drain, remains and measures 6.7 x 3.2. The patient has also a 4.2-cm pseudocyst at the pancreatic tail. 2. Chronic calcific pancreatitis. OTHER MEDICAL PROBLEMS: Include: A. Type 2 diabetes mellitus. B. Hypertension. C. Chronic obstructive pulmonary disease. D. Normochromic normocytic anemia. PLAN: Obviously to continue with IV antibiotic in the form of meropenem. Continue with pain management. So far, the cultures are still negative. 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 DICTATION ENDS HERE AUSTIN ESPINOZA MD DR: ANAHY/niranjan JOB#: [id number] / [id number]
--- NOTE | 2019-02-05 10:13 | PDOC ---
Infectious Disease Note Subjective Subjective Mild abdominal pain No F/C/S/N/V/D/SOA/rash Walking some Eating ROS ROS per HPI Vital Sign Vital Signs Vital Signs Date Time Temp Pulse Resp B/P (MAP) Pulse Ox O2 Delivery O2 Flow Rate FiO2 02/05/19 09:38 20 Room Air 02/05/19 09:30 55 137/59 02/05/19 07:00 98.1 93 98.1 Physical Exam PHYSICAL EXAM GENRAL: Propped up in bed, alert, NAD HEENT: Oral cavity, pharynx is clear. NECK: Supple LUNGS: Clear to auscultation. HEART: S1, S2. ABDOMEN: Mild distention, soft, BS present. ALFONSO intact. EXTREMITIES: Lwer extremitiy trace edema. No cyanosis. SKIN: Warm to touch without signs of rash. NEUROLOGIC: Nonfocal and appropriate. PIV Labs Lab Laboratory Tests Test 02/04/19 10:46 02/04/19 16:58 02/04/19 20:12 02/05/19 04:30 Glucose (Fingerstick) 151 mg/dL (70-99) 126 mg/dL (70-99) 174 mg/dL (70-99) White Blood Count 13.1 x10^3/uL (4.0-11.0) Red Blood Count 2.72 x10^6/uL (4.30-5.70) Hemoglobin 7.8 g/dL (13.0-17.5) Hematocrit 23.9 % (39.0-53.0) Mean Corpuscular Volume 88 fL (79-100) Mean Corpuscular Hemoglobin 29 pg (25-35) Mean Corpuscular Hemoglobin Concent 33 g/dL (31-37) Red Cell Distribution Width 15.9 % (11.5-14.5) Platelet Count 433 x10^3/uL (140-400) Neutrophils (%) (Auto) 68 % (31-73) Lymphocytes (%) (Auto) 15 % (24-48) Monocytes (%) (Auto) 15 % (0-9) Eosinophils (%) (Auto) 1 % (0-3) Basophils (%) (Auto) 1 % (0-3) Neutrophils # (Auto) 8.8 x10^3/uL (1.8-7.7) Lymphocytes # (Auto) 1.9 x10^3/uL (1.0-4.8) Monocytes # (Auto) 2.0 x10^3/uL (0.0-1.1) Eosinophils # (Auto) 0.2 x10^3/uL (0.0-0.7) Basophils # (Auto) 0.1 x10^3/uL (0.0-0.2) Sodium Level 133 mmol/L (136-145) Potassium Level 3.8 mmol/L (3.5-5.1) Chloride Level 97 mmol/L (98-107) Carbon Dioxide Level 32 mmol/L (21-32) Anion Gap 4 (6-14) Blood Urea Nitrogen 10 mg/dL (8-26) Creatinine 0.7 mg/dL (0.7-1.3) Estimated GFR (Cockcroft-Gault) 115.8 Glucose Level 117 mg/dL (70-99) Calcium Level 8.9 mg/dL (8.5-10.1) Test 02/05/19 07:48 Glucose (Fingerstick) 98 mg/dL (70-99) Micro ANAEROBIC RES 1 Final Comment No anaerobes recovered in 48 hours. 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 Objective Assessment Abd fluid collection, a lot of inflammatory cells - ? source still. fusobacterium -CT 02/04. Mostly resolved. There is a small collection lateral to the drain, which is 3 x 1.0 cm and there is subcutaneous collection along the drain, remains and measures 6.7 x 3.2. The patient has also a 4.2-cm pseudocyst at the pancreatic tail. Leukocytosis - stable H/o Pancreatitis with stent Tobacco abuse Plan Plan of Care Continue meropenem (01/31) Monitor ALFONSO output Monitor WBC/temp Supportive care D/w nursing Patient seen and examined. Chart reviewed in detail. Case discussed with [employer]. Agree with above plan NIOCL TREVINO APRN Feb 05, 2019 10:13 JANNA GARZA MD Feb 05, 2019 18:35
[2019-02-05 11:00] VITALS: BP 138/60
--- NOTE | 2019-02-05 11:50 | PDOC ---
SURGICAL PROGRESS NOTE Subjective Shashank for Dr Cole pt without complaint Vital Signs Vital Signs Date Time Temp Pulse Resp B/P (MAP) Pulse Ox O2 Delivery O2 Flow Rate FiO2 02/05/19 10:38 20 Room Air 02/05/19 09:30 55 137/59 02/05/19 07:00 98.1 93 98.1 I&O Intake and Output 02/05/19 07:00 Intake Total 3830 ml Balance 3830 ml Intake Oral 1480 ml IV Total 2350 ml # Voids 5 PATIENT HAS A MULTANI: No General: Alert, Oriented X3, No acute distress Lungs: Normal air movement Heart: Regular rate Abdomen: Soft, Other (ALFONSO drain bulb with purulent drainage, some leakage around the drain ) Labs Laboratory Tests Test 02/03/19 16:59 02/03/19 20:45 02/04/19 05:30 02/04/19 07:22 Glucose (Fingerstick) 167 mg/dL (70-99) 189 mg/dL (70-99) 97 mg/dL (70-99) White Blood Count 13.6 x10^3/uL (4.0-11.0) Red Blood Count 2.98 x10^6/uL (4.30-5.70) Hemoglobin 8.5 g/dL (13.0-17.5) Hematocrit 26.3 % (39.0-53.0) Mean Corpuscular Volume 88 fL (79-100) Mean Corpuscular Hemoglobin 29 pg (25-35) Mean Corpuscular Hemoglobin Concent 32 g/dL (31-37) Red Cell Distribution Width 16.1 % (11.5-14.5) Platelet Count 471 x10^3/uL (140-400) Neutrophils (%) (Auto) 64 % (31-73) Lymphocytes (%) (Auto) 17 % (24-48) Monocytes (%) (Auto) 17 % (0-9) Eosinophils (%) (Auto) 1 % (0-3) Basophils (%) (Auto) 1 % (0-3) Neutrophils # (Auto) 8.7 x10^3/uL (1.8-7.7) Lymphocytes # (Auto) 2.4 x10^3/uL (1.0-4.8) Monocytes # (Auto) 2.3 x10^3/uL (0.0-1.1) Eosinophils # (Auto) 0.2 x10^3/uL (0.0-0.7) Basophils # (Auto) 0.1 x10^3/uL (0.0-0.2) Sodium Level 136 mmol/L (136-145) Potassium Level 4.2 mmol/L (3.5-5.1) Chloride Level 98 mmol/L (98-107) Carbon Dioxide Level 31 mmol/L (21-32) Anion Gap 7 (6-14) Blood Urea Nitrogen 11 mg/dL (8-26) Creatinine 0.7 mg/dL (0.7-1.3) Estimated GFR (Cockcroft-Gault) 115.8 BUN/Creatinine Ratio 16 (6-20) Glucose Level 80 mg/dL (70-99) Calcium Level 8.6 mg/dL (8.5-10.1) Total Bilirubin 0.2 mg/dL (0.2-1.0) Aspartate Amino Transf (AST/SGOT) 24 U/L (15-37) Alanine Aminotransferase (ALT/SGPT) 31 U/L (16-63) Alkaline Phosphatase 98 U/L (46-116) Total Protein 6.5 g/dL (6.4-8.2) Albumin 2.4 g/dL (3.4-5.0) Albumin/Globulin Ratio 0.6 (1.0-1.7) Test 02/04/19 10:46 02/04/19 16:58 02/04/19 20:12 02/05/19 04:30 Glucose (Fingerstick) 151 mg/dL (70-99) 126 mg/dL (70-99) 174 mg/dL (70-99) White Blood Count 13.1 x10^3/uL (4.0-11.0) Red Blood Count 2.72 x10^6/uL (4.30-5.70) Hemoglobin 7.8 g/dL (13.0-17.5) Hematocrit 23.9 % (39.0-53.0) Mean Corpuscular Volume 88 fL (79-100) Mean Corpuscular Hemoglobin 29 pg (25-35) Mean Corpuscular Hemoglobin Concent 33 g/dL (31-37) Red Cell Distribution Width 15.9 % (11.5-14.5) Platelet Count 433 x10^3/uL (140-400) Neutrophils (%) (Auto) 68 % (31-73) Lymphocytes (%) (Auto) 15 % (24-48) Monocytes (%) (Auto) 15 % (0-9) Eosinophils (%) (Auto) 1 % (0-3) Basophils (%) (Auto) 1 % (0-3) Neutrophils # (Auto) 8.8 x10^3/uL (1.8-7.7) Lymphocytes # (Auto) 1.9 x10^3/uL (1.0-4.8) Monocytes # (Auto) 2.0 x10^3/uL (0.0-1.1) Eosinophils # (Auto) 0.2 x10^3/uL (0.0-0.7) Basophils # (Auto) 0.1 x10^3/uL (0.0-0.2) Sodium Level 133 mmol/L (136-145) Potassium Level 3.8 mmol/L (3.5-5.1) Chloride Level 97 mmol/L (98-107) Carbon Dioxide Level 32 mmol/L (21-32) Anion Gap 4 (6-14) Blood Urea Nitrogen 10 mg/dL (8-26) Creatinine 0.7 mg/dL (0.7-1.3) Estimated GFR (Cockcroft-Gault) 115.8 Glucose Level 117 mg/dL (70-99) Calcium Level 8.9 mg/dL (8.5-10.1) Test 02/05/19 07:48 Glucose (Fingerstick) 98 mg/dL (70-99) Laboratory Tests Test 02/04/19 16:58 02/04/19 20:12 02/05/19 04:30 02/05/19 07:48 Glucose (Fingerstick) 126 mg/dL (70-99) 174 mg/dL (70-99) 98 mg/dL (70-99) White Blood Count 13.1 x10^3/uL (4.0-11.0) Red Blood Count 2.72 x10^6/uL (4.30-5.70) Hemoglobin 7.8 g/dL (13.0-17.5) Hematocrit 23.9 % (39.0-53.0) Mean Corpuscular Volume 88 fL (79-100) Mean Corpuscular Hemoglobin 29 pg (25-35) Mean Corpuscular Hemoglobin Concent 33 g/dL (31-37) Red Cell Distribution Width 15.9 % (11.5-14.5) Platelet Count 433 x10^3/uL (140-400) Neutrophils (%) (Auto) 68 % (31-73) Lymphocytes (%) (Auto) 15 % (24-48) Monocytes (%) (Auto) 15 % (0-9) Eosinophils (%) (Auto) 1 % (0-3) Basophils (%) (Auto) 1 % (0-3) Neutrophils # (Auto) 8.8 x10^3/uL (1.8-7.7) Lymphocytes # (Auto) 1.9 x10^3/uL (1.0-4.8) Monocytes # (Auto) 2.0 x10^3/uL (0.0-1.1) Eosinophils # (Auto) 0.2 x10^3/uL (0.0-0.7) Basophils # (Auto) 0.1 x10^3/uL (0.0-0.2) Sodium Level 133 mmol/L (136-145) Potassium Level 3.8 mmol/L (3.5-5.1) Chloride Level 97 mmol/L (98-107) Carbon Dioxide Level 32 mmol/L (21-32) Anion Gap 4 (6-14) Blood Urea Nitrogen 10 mg/dL (8-26) Creatinine 0.7 mg/dL (0.7-1.3) Estimated GFR (Cockcroft-Gault) 115.8 Glucose Level 117 mg/dL (70-99) Calcium Level 8.9 mg/dL (8.5-10.1) Assessment/Plan abdominal abscess, s/p percutaneous drainage continue drain, antibiotics DARIEN BAILEY MD Feb 05, 2019 11:50
[2019-02-05 15:00] VITALS: BP 138/62
[2019-02-05] MEDS: MORPHINE SULFATE 4 MG/ML VIAL. IV PRN (18:16)
[2019-02-05 19:00] VITALS: BP 141/57
[2019-02-05] MEDS: INSULIN GLARGINE SYRINGE. SQ SCH (20:18)
[2019-02-05 23:00] VITALS: BP 150/67
[2019-02-06] MEDS: HYDROmorphone 2 MG/ML VIAL IV PRN ×6 (00:23→19:51)
[2019-02-06 03:00] VITALS: BP 143/74
[2019-02-06] MEDS: MEROPENEM 500 MG in IV NORMAL SALINE 50ML 50 ML IV SCH ×3 (04:48→18:01)
[2019-02-06] MEDS: PANTOPRAZOLE 40 MG TABLET.DR. PO SCH (06:24)
[2019-02-06 07:00] VITALS: BP 163/70
[2019-02-06] MEDS: POLYETHYLENE GLYCOL 3350 17 GM PACKET. PO SCH (09:16)
[2019-02-06] MEDS: NICOTINE 14MG PATCH. TD SCH (09:17)
[2019-02-06] MEDS: MULTIVITAMIN with MINERAL TABLET. PO SCH (09:17)
[2019-02-06] MEDS: LACTOBACILLUS RHAMNOSUS GG 1 CAPSULE. PO SCH ×2 (09:17→21:32)
--- NOTE | 2019-02-06 09:57 | PDOC ---
Infectious Disease Note Subjective Subjective Mild abdominal pain, localized - about the same intensity No F/C/S/N/V/D/SOA/rash Hoping to go home soon ROS ROS per HPI Vital Sign Vital Signs Vital Signs Date Time Temp Pulse Resp B/P (MAP) Pulse Ox O2 Delivery O2 Flow Rate FiO2 02/06/19 09:17 75 163/70 02/06/19 07:00 98.4 16 96 Room Air 98.4 Physical Exam PHYSICAL EXAM GENRAL: Propped up in bed, alert, NAD HEENT: Oral cavity, pharynx is clear. NECK: Supple LUNGS: Clear to auscultation. HEART: S1, S2. ABDOMEN: Mild distention, soft, BS present. ALFONSO intact. EXTREMITIES: Lower extremity trace edema. No cyanosis. SKIN: Warm to touch without signs of rash. NEUROLOGIC: Nonfocal and appropriate. PIV Labs Lab Laboratory Tests Test 02/05/19 11:24 02/05/19 17:02 02/05/19 20:18 02/06/19 08:04 Glucose (Fingerstick) 135 mg/dL (70-99) 174 mg/dL (70-99) 119 mg/dL (70-99) 103 mg/dL (70-99) Micro ANAEROBIC RES 1 Final Comment No anaerobes recovered in 48 hours. 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 Objective Assessment Abd fluid collection, a lot of inflammatory cells - ? source still. fusobacterium -CT 02/04. Mostly resolved. There is a small collection lateral to the drain, which is 3 x 1.0 cm and there is subcutaneous collection along the drain, remains and measures 6.7 x 3.2. The patient has also a 4.2-cm pseudocyst at the pancreatic tail. Leukocytosis - stable H/o Pancreatitis with stent Tobacco abuse Plan Plan of Care Continue meropenem (01/31) Probiotics Monitor ALFONSO output f/u am labs Supportive care Patient seen and examined. Chart reviewed in detail. Case discussed with AED TRAINER. Agree with above plan. NICOL TREVINO APRN Feb 06, 2019 09:57 JANNA GARZA MD Feb 06, 2019 18:11
--- NOTE | 2019-02-06 10:58 | PDOC ---
SURGICAL PROGRESS NOTE Subjective Shashank for Dr Cole no new complaints pain "comes and goes" Vital Signs Vital Signs Date Time Temp Pulse Resp B/P (MAP) Pulse Ox O2 Delivery O2 Flow Rate FiO2 02/06/19 09:17 75 163/70 02/06/19 07:00 98.4 16 96 Room Air 98.4 I&O Intake and Output 02/06/19 07:00 Intake Total 1390 ml Output Total 50 ml Balance 1340 ml Intake Oral 240 ml IV Total 1150 ml Drainage Total 50 ml # Voids 5 PATIENT HAS A MULTANI: No Abdomen: Soft, Other (minimal TTP around drain site, bulb with purulent output) Labs Laboratory Tests Test 02/04/19 16:58 02/04/19 20:12 02/05/19 04:30 02/05/19 07:48 Glucose (Fingerstick) 126 mg/dL (70-99) 174 mg/dL (70-99) 98 mg/dL (70-99) White Blood Count 13.1 x10^3/uL (4.0-11.0) Red Blood Count 2.72 x10^6/uL (4.30-5.70) Hemoglobin 7.8 g/dL (13.0-17.5) Hematocrit 23.9 % (39.0-53.0) Mean Corpuscular Volume 88 fL (79-100) Mean Corpuscular Hemoglobin 29 pg (25-35) Mean Corpuscular Hemoglobin Concent 33 g/dL (31-37) Red Cell Distribution Width 15.9 % (11.5-14.5) Platelet Count 433 x10^3/uL (140-400) Neutrophils (%) (Auto) 68 % (31-73) Lymphocytes (%) (Auto) 15 % (24-48) Monocytes (%) (Auto) 15 % (0-9) Eosinophils (%) (Auto) 1 % (0-3) Basophils (%) (Auto) 1 % (0-3) Neutrophils # (Auto) 8.8 x10^3/uL (1.8-7.7) Lymphocytes # (Auto) 1.9 x10^3/uL (1.0-4.8) Monocytes # (Auto) 2.0 x10^3/uL (0.0-1.1) Eosinophils # (Auto) 0.2 x10^3/uL (0.0-0.7) Basophils # (Auto) 0.1 x10^3/uL (0.0-0.2) Sodium Level 133 mmol/L (136-145) Potassium Level 3.8 mmol/L (3.5-5.1) Chloride Level 97 mmol/L (98-107) Carbon Dioxide Level 32 mmol/L (21-32) Anion Gap 4 (6-14) Blood Urea Nitrogen 10 mg/dL (8-26) Creatinine 0.7 mg/dL (0.7-1.3) Estimated GFR (Cockcroft-Gault) 115.8 Glucose Level 117 mg/dL (70-99) Calcium Level 8.9 mg/dL (8.5-10.1) Test 02/05/19 11:24 02/05/19 17:02 02/05/19 20:18 02/06/19 08:04 Glucose (Fingerstick) 135 mg/dL (70-99) 174 mg/dL (70-99) 119 mg/dL (70-99) 103 mg/dL (70-99) Laboratory Tests Test 02/05/19 11:24 02/05/19 17:02 02/05/19 20:18 02/06/19 08:04 Glucose (Fingerstick) 135 mg/dL (70-99) 174 mg/dL (70-99) 119 mg/dL (70-99) 103 mg/dL (70-99) Assessment/Plan abscess s/p perc drainage no new surgical recs DARIEN BAILEY MD Feb 06, 2019 10:58
[2019-02-06 11:00] VITALS: BP 153/75
[2019-02-06] MEDS: HYDROcodone/APAP 5/325MG 1 TAB TABLET PO PRN ×2 (13:14→21:32)
[2019-02-06 15:00] VITALS: BP 126/61
[2019-02-06] MEDS: IV NORMAL SALINE 1000ML BAG 1,000 ML IV SCH (18:02)
[2019-02-06 19:00] VITALS: BP 130/57
--- NOTE | 2019-02-06 20:23 | PN ---
DATE: 02/06/2019 SUBJECTIVE: The patient is resting, slightly propped up, sleeping comfortably, in no apparent distress. On questioning him, he denied any complaint. PHYSICAL EXAMINATION: GENERAL: When I examined him, he looked well and was clearly in no apparent distress, pale. No jaundice, cyanosis or thyromegaly. NECK: No jugular venous distention. No lymphedema. VITAL SIGNS: Her heart rate was 75, blood pressure was 163/70, temperature 98.4, respiratory rate was 16, and oxygen saturation was 96%. The rest of the clinical exam is stable. Continues to have some drainage from his abdominal abscess. His intake was 3813. Output was recorded. LABORATORY DATA: His lab work as of yesterday showed a white cell count 13,000, hemoglobin 7.8, hematocrit 23.9, MCV 88 and platelet count of 433,00. Serum blood glucose was fairly well controlled. His serum sodium was 133, potassium 3.8, chloride 97, bicarbonate 32, anion gap of 4, BUN 10, creatinine 0.7, estimated GFR was 115 mL per minute. His glucose 117, calcium was 8.9. 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 The sensitivity is still pending at the time of this dictation. ASSESSMENT: 1. Abdominal abscess that according to second CT scan has mostly resolved; however, there is a small collection lateral to the drain, which is 3 x 1 cm and there is a subcutaneous collection along with the drain measures 6.7 x 3.2 cm. The patient also has 4.2 cm pseudocyst at the pancreatic tail. 2. Chronic calcific pancreatitis with stent in the common bile duct. 3. Other medical problems include: A. Type 2 diabetes mellitus. B. Hypertension. C. Chronic obstructive pulmonary disease. D. Normochromic normocytic anemia. PLAN: To continue with IV antibiotic in the form of meropenem. Continue with pain management. 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 We will await obviously the decision of the Infectious Disease team to see whether the patient can be discharged to continue on oral antibiotic or whether he needs drainage of the rest of the fluid collection in the abdominal wall along with the drain. AUSTIN ESPINOZA MD DR: ANAHY/niranjan JOB#: [id number] / [id number]
[2019-02-06] MEDS: INSULIN GLARGINE SYRINGE. SQ SCH (21:36)
[2019-02-06 23:00] VITALS: BP 135/56
[2019-02-07] MEDS: MEROPENEM 500 MG in IV NORMAL SALINE 50ML 50 ML IV SCH ×5 (00:08→23:27)
[2019-02-07] MEDS: HYDROmorphone 2 MG/ML VIAL IV PRN ×5 (00:17→21:38)
[2019-02-07 03:00] VITALS: BP 139/55
[2019-02-07 04:29] LABS: BASO # 0.1 x10^3/uL (0.0-0.2); BASO % 1 % (0-3); EOS # 0.2 x10^3/uL (0.0-0.7); EOS % 2 % (0-3); HEMATOCRIT 24.1 % (39.0-53.0); LYMPH # 2.1 x10^3/uL (1.0-4.8); LYMPH % 22 % (24-48); MEAN CORPUSCULAR HEMOGLOBIN 29 pg (25-35); MEAN CORPUSCULAR HGB CONC 33 g/dL (31-37); MEAN CORPUSCULAR VOLUME 87 fL (79-100); MONO # 1.5 x10^3/uL (0.0-1.1); MONO % 15 % (0-9); NEUT # 5.9 x10^3/uL (1.8-7.7); NEUT % 60 % (31-73); PLATELET COUNT 464 x10^3/uL (140-400); RED BLOOD COUNT 2.76 x10^6/uL (4.30-5.70); RED CELL DISTRIBUTION WIDTH 16.7 % (11.5-14.5); WHITE BLOOD COUNT 9.9 x10^3/uL (4.0-11.0)
[2019-02-07 04:50] LABS: ALBUMIN 2.2 g/dL (3.4-5.0); ALBUMIN/GLOBULIN RATIO 0.5 (1.0-1.7); CALCIUM 8.7 mg/dL (8.5-10.1); CREATININE 0.6 mg/dL (0.7-1.3); GFR 138.4; POTASSIUM 3.9 mmol/L (3.5-5.1); TOTAL BILIRUBIN 0.2 mg/dL (0.2-1.0); TOTAL PROTEIN 6.7 g/dL (6.4-8.2)
[2019-02-07] MEDS: HYDROcodone/APAP 5/325MG 1 TAB TABLET PO PRN ×3 (06:05→23:25)
[2019-02-07 07:00] VITALS: BP 118/57
--- NOTE | 2019-02-07 08:58 | NUR ---
L abd ALFONSO drain flushed with 10cc NS. No immediate return of output. Small amount of fluid noted to be leaking around insertion site. Pt denies any complaints.
[2019-02-07] MEDS: NICOTINE 14MG PATCH. TD SCH (09:00)
[2019-02-07] MEDS: PANTOPRAZOLE 40 MG TABLET.DR. PO SCH (09:01)
[2019-02-07] MEDS: MULTIVITAMIN with MINERAL TABLET. PO SCH (09:01)
[2019-02-07] MEDS: POLYETHYLENE GLYCOL 3350 17 GM PACKET. PO SCH (09:01)
[2019-02-07] MEDS: LACTOBACILLUS RHAMNOSUS GG 1 CAPSULE. PO SCH ×2 (09:01→21:36)
[2019-02-07] MEDS: IV NORMAL SALINE 1000ML BAG 1,000 ML IV SCH ×2 (09:02→21:38)
--- NOTE | 2019-02-07 09:19 | PDOC ---
NIKOLAY DURAN [employer] 02/07/1918: SURGICAL PROGRESS NOTE Subjective resting no complaints Vital Signs Vital Signs Date Time Temp Pulse Resp B/P (MAP) Pulse Ox O2 Delivery O2 Flow Rate FiO2 02/07/19 09:10 Room Air 02/07/19 09:01 53 118/57 02/07/19 07:00 97.9 14 97 97.9 I&O Intake and Output 02/07/19 07:00 Intake Total 400 ml Output Total 175 ml Balance 225 ml Intake Oral 400 ml Output Urine Total 175 ml Drainage Total 0 ml # Voids 6 # Bowel Movements 2 General: Alert, Oriented X3, Cooperative Abdomen: Soft, Other (drain in place) Labs Laboratory Tests Test 02/05/19 11:24 02/05/19 17:02 02/05/19 20:18 02/06/19 08:04 Glucose (Fingerstick) 135 mg/dL (70-99) 174 mg/dL (70-99) 119 mg/dL (70-99) 103 mg/dL (70-99) Test 02/06/19 11:43 02/06/19 16:46 02/06/19 20:19 02/07/19 03:45 Glucose (Fingerstick) 125 mg/dL (70-99) 122 mg/dL (70-99) 193 mg/dL (70-99) White Blood Count 9.9 x10^3/uL (4.0-11.0) Red Blood Count 2.76 x10^6/uL (4.30-5.70) Hemoglobin 8.0 g/dL (13.0-17.5) Hematocrit 24.1 % (39.0-53.0) Mean Corpuscular Volume 87 fL (79-100) Mean Corpuscular Hemoglobin 29 pg (25-35) Mean Corpuscular Hemoglobin Concent 33 g/dL (31-37) Red Cell Distribution Width 16.7 % (11.5-14.5) Platelet Count 464 x10^3/uL (140-400) Neutrophils (%) (Auto) 60 % (31-73) Lymphocytes (%) (Auto) 22 % (24-48) Monocytes (%) (Auto) 15 % (0-9) Eosinophils (%) (Auto) 2 % (0-3) Basophils (%) (Auto) 1 % (0-3) Neutrophils # (Auto) 5.9 x10^3/uL (1.8-7.7) Lymphocytes # (Auto) 2.1 x10^3/uL (1.0-4.8) Monocytes # (Auto) 1.5 x10^3/uL (0.0-1.1) Eosinophils # (Auto) 0.2 x10^3/uL (0.0-0.7) Basophils # (Auto) 0.1 x10^3/uL (0.0-0.2) Sodium Level 135 mmol/L (136-145) Potassium Level 3.9 mmol/L (3.5-5.1) Chloride Level 99 mmol/L (98-107) Carbon Dioxide Level 30 mmol/L (21-32) Anion Gap 6 (6-14) Blood Urea Nitrogen 8 mg/dL (8-26) Creatinine 0.6 mg/dL (0.7-1.3) Estimated GFR (Cockcroft-Gault) 138.4 BUN/Creatinine Ratio 13 (6-20) Glucose Level 82 mg/dL (70-99) Calcium Level 8.7 mg/dL (8.5-10.1) Total Bilirubin 0.2 mg/dL (0.2-1.0) Aspartate Amino Transf (AST/SGOT) 29 U/L (15-37) Alanine Aminotransferase (ALT/SGPT) 37 U/L (16-63) Alkaline Phosphatase 106 U/L (46-116) Total Protein 6.7 g/dL (6.4-8.2) Albumin 2.2 g/dL (3.4-5.0) Albumin/Globulin Ratio 0.5 (1.0-1.7) Test 02/07/19 07:59 Glucose (Fingerstick) 92 mg/dL (70-99) Laboratory Tests Test 02/06/19 11:43 02/06/19 16:46 02/06/19 20:19 02/07/19 03:45 Glucose (Fingerstick) 125 mg/dL (70-99) 122 mg/dL (70-99) 193 mg/dL (70-99) White Blood Count 9.9 x10^3/uL (4.0-11.0) Red Blood Count 2.76 x10^6/uL (4.30-5.70) Hemoglobin 8.0 g/dL (13.0-17.5) Hematocrit 24.1 % (39.0-53.0) Mean Corpuscular Volume 87 fL (79-100) Mean Corpuscular Hemoglobin 29 pg (25-35) Mean Corpuscular Hemoglobin Concent 33 g/dL (31-37) Red Cell Distribution Width 16.7 % (11.5-14.5) Platelet Count 464 x10^3/uL (140-400) Neutrophils (%) (Auto) 60 % (31-73) Lymphocytes (%) (Auto) 22 % (24-48) Monocytes (%) (Auto) 15 % (0-9) Eosinophils (%) (Auto) 2 % (0-3) Basophils (%) (Auto) 1 % (0-3) Neutrophils # (Auto) 5.9 x10^3/uL (1.8-7.7) Lymphocytes # (Auto) 2.1 x10^3/uL (1.0-4.8) Monocytes # (Auto) 1.5 x10^3/uL (0.0-1.1) Eosinophils # (Auto) 0.2 x10^3/uL (0.0-0.7) Basophils # (Auto) 0.1 x10^3/uL (0.0-0.2) Sodium Level 135 mmol/L (136-145) Potassium Level 3.9 mmol/L (3.5-5.1) Chloride Level 99 mmol/L (98-107) Carbon Dioxide Level 30 mmol/L (21-32) Anion Gap 6 (6-14) Blood Urea Nitrogen 8 mg/dL (8-26) Creatinine 0.6 mg/dL (0.7-1.3) Estimated GFR (Cockcroft-Gault) 138.4 BUN/Creatinine Ratio 13 (6-20) Glucose Level 82 mg/dL (70-99) Calcium Level 8.7 mg/dL (8.5-10.1) Total Bilirubin 0.2 mg/dL (0.2-1.0) Aspartate Amino Transf (AST/SGOT) 29 U/L (15-37) Alanine Aminotransferase (ALT/SGPT) 37 U/L (16-63) Alkaline Phosphatase 106 U/L (46-116) Total Protein 6.7 g/dL (6.4-8.2) Albumin 2.2 g/dL (3.4-5.0) Albumin/Globulin Ratio 0.5 (1.0-1.7) Test 02/07/19 07:59 Glucose (Fingerstick) 92 mg/dL (70-99) Assessment/Plan noted CT from Thursday--will review with JODIE Trinh MD 02/07/19 1646: SURGICAL PROGRESS NOTE Assessment/Plan Pt seen and examined. Agree with Ms. Duran's note Pt feels better abd soft, mass, smaller, softer OK to d/c home from surgery POV. Will f/u in office. NIKOLAY DURAN APRN Feb 07, 2019 09:18 JODIE RUIZ MD Feb 07, 2019 16:46
--- NOTE | 2019-02-07 09:21 | PDOC ---
Infectious Disease Note Subjective Subjective feeling better, abd fluid /drain leaking ROS ROS no n/v/d/sob Vital Sign Vital Signs Vital Signs Date Time Temp Pulse Resp B/P (MAP) Pulse Ox O2 Delivery O2 Flow Rate FiO2 02/07/19 07:15 Room Air 02/07/19 07:00 97.9 53 14 118/57 (77) 97 97.9 Physical Exam PHYSICAL EXAM GENRAL: Propped up in bed, alert, NAD HEENT: Oral cavity, pharynx is clear. NECK: Supple LUNGS: Clear to auscultation. HEART: S1, S2. ABDOMEN: Mild distention, soft, BS present. ALFONSO intact. EXTREMITIES: Lower extremity trace edema. No cyanosis. SKIN: Warm to touch without signs of rash. NEUROLOGIC: Nonfocal and appropriate. PIV Labs Lab Laboratory Tests Test 02/06/19 11:43 02/06/19 16:46 02/06/19 20:19 02/07/19 03:45 Glucose (Fingerstick) 125 mg/dL (70-99) 122 mg/dL (70-99) 193 mg/dL (70-99) White Blood Count 9.9 x10^3/uL (4.0-11.0) Red Blood Count 2.76 x10^6/uL (4.30-5.70) Hemoglobin 8.0 g/dL (13.0-17.5) Hematocrit 24.1 % (39.0-53.0) Mean Corpuscular Volume 87 fL (79-100) Mean Corpuscular Hemoglobin 29 pg (25-35) Mean Corpuscular Hemoglobin Concent 33 g/dL (31-37) Red Cell Distribution Width 16.7 % (11.5-14.5) Platelet Count 464 x10^3/uL (140-400) Neutrophils (%) (Auto) 60 % (31-73) Lymphocytes (%) (Auto) 22 % (24-48) Monocytes (%) (Auto) 15 % (0-9) Eosinophils (%) (Auto) 2 % (0-3) Basophils (%) (Auto) 1 % (0-3) Neutrophils # (Auto) 5.9 x10^3/uL (1.8-7.7) Lymphocytes # (Auto) 2.1 x10^3/uL (1.0-4.8) Monocytes # (Auto) 1.5 x10^3/uL (0.0-1.1) Eosinophils # (Auto) 0.2 x10^3/uL (0.0-0.7) Basophils # (Auto) 0.1 x10^3/uL (0.0-0.2) Sodium Level 135 mmol/L (136-145) Potassium Level 3.9 mmol/L (3.5-5.1) Chloride Level 99 mmol/L (98-107) Carbon Dioxide Level 30 mmol/L (21-32) Anion Gap 6 (6-14) Blood Urea Nitrogen 8 mg/dL (8-26) Creatinine 0.6 mg/dL (0.7-1.3) Estimated GFR (Cockcroft-Gault) 138.4 BUN/Creatinine Ratio 13 (6-20) Glucose Level 82 mg/dL (70-99) Calcium Level 8.7 mg/dL (8.5-10.1) Total Bilirubin 0.2 mg/dL (0.2-1.0) Aspartate Amino Transf (AST/SGOT) 29 U/L (15-37) Alanine Aminotransferase (ALT/SGPT) 37 U/L (16-63) Alkaline Phosphatase 106 U/L (46-116) Total Protein 6.7 g/dL (6.4-8.2) Albumin 2.2 g/dL (3.4-5.0) Albumin/Globulin Ratio 0.5 (1.0-1.7) Test 02/07/19 07:59 Glucose (Fingerstick) 92 mg/dL (70-99) Micro Objective Assessment Abd fluid collection, a lot of inflammatory cells - ? source still. fusobacterium -CT 02/04. Mostly resolved. There is a small collection lateral to the drain, which is 3 x 1.0 cm and there is subcutaneous collection along the drain, remains and measures 6.7 x 3.2. The patient has also a 4.2-cm pseudocyst at the pancreatic tail. Leukocytosis - stable H/o Pancreatitis with stent Tobacco abuse Plan Plan of Care Continue meropenem (01/31) ,, soon to change to po for d/c Probiotics Monitor ALFONSO output f/u am labs Supportive care DOROTHY LANE MD Feb 07, 2019 09:21
[2019-02-07 11:00] VITALS: BP 118/57
--- NOTE | 2019-02-07 12:08 | PN ---
DATE: SUBJECTIVE: The patient is sitting slightly, propped up in bed, in no apparent distress. On questioning him, his pain is much better controlled. He has been eating and drinking, has been up and about and would like to go home; however, he continued to require IV antibiotic and awaiting the decision by the surgical team, Infectious Disease to see whether he can be discharged home on oral medication. PHYSICAL EXAMINATION: GENERAL: When I saw him this morning, he looked well and was clearly in no apparent respiratory distress, slightly pale, no jaundice, cyanosis, or thyromegaly. No jugular venous distension. No lower limb edema. VITAL SIGNS: His heart rate was 53, blood pressure was 118/57, temperature was 97.9, respiratory rate was 14 and oxygen saturation was 97%. HEAD, EYES, EARS, NOSE AND THROAT: Showed normocephalic, atraumatic. NECK: Supple. CARDIAC: Normal first and second heart sounds. No gallop or murmur. CHEST: Clear to auscultation. No crepitation or rhonchi. ABDOMEN: Slightly distended, soft with drain in the epigastric area. No tenderness. No guarding or rigidity. No organomegaly. All hernial orifices intact. Bowel sounds normal. NEUROLOGIC: He is grossly intact. His intake over the last 24 hours was 1400 and output is incompletely recorded. LABORATORY DATA: As of this morning, his white cell count is 9900, hemoglobin 8, hematocrit 24, MCV 87 and platelet count of 164,000. His serum sodium was 135, potassium 3.9, chloride 99, bicarbonate 30, anion gap of 6, BUN 8, creatinine 0.6, estimated GFR was 138 mL per minute. His glucose was 82, calcium was 8.7. Total bilirubin, AST, ALT, alkaline phosphatase were normal. Total protein 6.7, albumin was 2.2. ASSESSMENT: 1. Abdominal abscess that according to second CT scan has not resolved; however, small collection lateral to drain, which is 3 x 1 cm. There is also subcutaneous collection along drain measures 6.7 x 3.2. The patient also has 4.2 cm pseudocyst at the pancreatic tail. 2. Chronic calcific pancreatitis stent in the common bile duct. 3. Other medical problems include: A. Type 2 diabetes mellitus. B. Hypertension. C. Chronic obstructive pulmonary disease. D. Normochromic normocytic anemia. E. Alcohol and tobacco abuse disorder. PLAN: To continue with IV antibiotic in the form of meropenem. Continue with pain management. 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 The patient will be discharged as soon as his antibiotics were switched to oral route. AUSTIN ESPINOZA MD DR: ANAHY/niranjan JOB#: [id number] / [id number]
--- NOTE | 2019-02-07 12:59 | NUR ---
SW following. Discussed with RN and Dr. Diaz. Pt to be switched to oral abx soon, then will be able to discharge home with self care. RN advised no SW needs at this time. SW will continue to follow should any needs arise.
--- NOTE | 2019-02-07 14:46 | PDOC ---
Objective: Objective: Reviewed chart and d/w nurse - a little leakage around drain earlier. Vital Signs: Vital Signs Date Time Temp Pulse Resp B/P (MAP) Pulse Ox O2 Delivery O2 Flow Rate FiO2 02/07/19 12:12 Room Air 02/07/19 09:01 53 118/57 02/07/19 07:00 97.9 14 97 97.9 Labs: Laboratory Tests Test 02/06/19 16:46 02/06/19 20:19 02/07/19 03:45 02/07/19 07:59 Glucose (Fingerstick) 122 mg/dL 193 mg/dL 92 mg/dL White Blood Count 9.9 x10^3/uL Red Blood Count 2.76 x10^6/uL Hemoglobin 8.0 g/dL Hematocrit 24.1 % Mean Corpuscular Volume 87 fL Mean Corpuscular Hemoglobin 29 pg Mean Corpuscular Hemoglobin Concent 33 g/dL Red Cell Distribution Width 16.7 % Platelet Count 464 x10^3/uL Neutrophils (%) (Auto) 60 % Lymphocytes (%) (Auto) 22 % Monocytes (%) (Auto) 15 % Eosinophils (%) (Auto) 2 % Basophils (%) (Auto) 1 % Neutrophils # (Auto) 5.9 x10^3/uL Lymphocytes # (Auto) 2.1 x10^3/uL Monocytes # (Auto) 1.5 x10^3/uL Eosinophils # (Auto) 0.2 x10^3/uL Basophils # (Auto) 0.1 x10^3/uL Sodium Level 135 mmol/L Potassium Level 3.9 mmol/L Chloride Level 99 mmol/L Carbon Dioxide Level 30 mmol/L Anion Gap 6 Blood Urea Nitrogen 8 mg/dL Creatinine 0.6 mg/dL Estimated GFR (Cockcroft-Gault) 138.4 BUN/Creatinine Ratio 13 Glucose Level 82 mg/dL Calcium Level 8.7 mg/dL Total Bilirubin 0.2 mg/dL Aspartate Amino Transf (AST/SGOT) 29 U/L Alanine Aminotransferase (ALT/SGPT) 37 U/L Alkaline Phosphatase 106 U/L Total Protein 6.7 g/dL Albumin 2.2 g/dL Albumin/Globulin Ratio 0.5 Test 02/07/19 12:05 Glucose (Fingerstick) 113 mg/dL Imaging: CT A/P 02/04 IMPRESSION: 1. The drained infrahepatic abscess has mostly resolved. A small collection lateral to the drain measures 3.0 x 1.8 cm. 2. A subcutaneous collection along the drain remains and measures 6.7 x 3.2 cm. 3. 4.2 cm pseudocyst at the pancreatic tail. Changes of chronic pancreatitis. A metallic common duct stent is in place. 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 DEYA SHAFFER Feb 07, 2019 14:46
[2019-02-07 15:00] VITALS: BP 137/64
--- NOTE | 2019-02-07 16:16 | NUR ---
Abd ALFONSO flushed with 10cc NS, ALFONSO drsg changed. ALFONSO insertion site draining clear to purulent drainage with a mild odor.
[2019-02-07 19:00] VITALS: BP 130/60
[2019-02-07] MEDS: INSULIN GLARGINE SYRINGE. SQ SCH (21:44)
[2019-02-07 23:00] VITALS: BP 170/68
[2019-02-08 03:00] VITALS: BP 147/67
[2019-02-08] MEDS: MEROPENEM 500 MG in IV NORMAL SALINE 50ML 50 ML IV SCH (05:29)
[2019-02-08] MEDS: PANTOPRAZOLE 40 MG TABLET.DR. PO SCH (05:29)
[2019-02-08 07:00] VITALS: BP 171/71
--- NOTE | 2019-02-08 08:52 | PDOC ---
Infectious Disease Note Subjective Subjective feeling better, ROS ROS no n/v/d/fever/ abd pain Vital Sign Vital Signs Vital Signs Date Time Temp Pulse Resp B/P (MAP) Pulse Ox O2 Delivery O2 Flow Rate FiO2 02/08/19 07:00 98.1 171 16 171/71 (104) 94 Room Air 98.1 Physical Exam PHYSICAL EXAM GENRAL: Propped up in bed, alert, NAD HEENT: Oral cavity, pharynx is clear. NECK: Supple LUNGS: Clear to auscultation. HEART: S1, S2. ABDOMEN: Mild distention, soft, BS present. ALFONSO intact. EXTREMITIES: Lower extremity trace edema. No cyanosis. SKIN: Warm to touch without signs of rash. NEUROLOGIC: Nonfocal and appropriate. PIV Labs Lab Laboratory Tests Test 02/07/19 12:05 02/07/19 16:53 02/07/19 20:41 02/08/19 07:42 Glucose (Fingerstick) 113 mg/dL (70-99) 152 mg/dL (70-99) 218 mg/dL (70-99) 86 mg/dL (70-99) Micro ANAEROBIC-AEROBIC CULTURE Final Preliminary report Final report ANAEROBIC RES 1 Final Comment No anaerobes recovered in 48 hours. 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 AEROBIC CULT Final Preliminary report Final report AEROBIC RES 1 Final Comment No growth in 36 - 48 hours. No growth in 56 - 72 hours. GRAM STAIN Final Final report GRAM STAIN RES 1 Final Comment Moderate amount of white blood cells. GRAM STAIN RES 2 Final No organisms seen Performed at: - [facility], [place], [place] [id number] Firearms Specialist: TANNER Sue MD, Phone: [phone] Objective Assessment Abd fluid collection, a lot of inflammatory cells - ? source still. fusobacterium -CT 02/04. Mostly resolved. There is a small collection lateral to the drain, which is 3 x 1.0 cm and there is subcutaneous collection along the drain, remains and measures 6.7 x 3.2. The patient has also a 4.2-cm pseudocyst at the pancreatic tail. Leukocytosis - stable H/o Pancreatitis with stent Tobacco abuse Plan Plan of Care meropenem change to po Augmentin for d/c Probiotics Monitor ALFONSO output f/u am labs Supportive care repeat ct in 7-10 days recurrence possibility discussed probiotics adv DOROTHY LANE MD Feb 08, 2019 08:52
[2019-02-08] MEDS: POLYETHYLENE GLYCOL 3350 17 GM PACKET. PO SCH (09:03)
[2019-02-08] MEDS: LACTOBACILLUS RHAMNOSUS GG 1 CAPSULE. PO SCH (09:05)
[2019-02-08] MEDS: MULTIVITAMIN with MINERAL TABLET. PO SCH (09:05)
[2019-02-08] MEDS: NICOTINE 14MG PATCH. TD SCH (09:05)
--- NOTE | 2019-02-08 09:07 | PDOC ---
NIKOLAY DURAN DOG OBEDIENCE INSTRUCTOR 02/08/19 0907: SURGICAL PROGRESS NOTE Subjective no complaints tolerating diet Vital Signs Vital Signs Date Time Temp Pulse Resp B/P (MAP) Pulse Ox O2 Delivery O2 Flow Rate FiO2 02/08/19 07:00 98.1 68 16 171/71 (104) 94 Room Air 98.1 I&O Intake and Output 02/08/19 07:00 Intake Total 780 ml Output Total 30 ml Balance 750 ml Intake Oral 780 ml Drainage Total 30 ml # Voids 1 General: Alert, Oriented X3, Cooperative Abdomen: Soft, Other (drain purulent) Labs Laboratory Tests Test 02/06/19 11:43 02/06/19 16:46 02/06/19 20:19 02/07/19 03:45 Glucose (Fingerstick) 125 mg/dL (70-99) 122 mg/dL (70-99) 193 mg/dL (70-99) White Blood Count 9.9 x10^3/uL (4.0-11.0) Red Blood Count 2.76 x10^6/uL (4.30-5.70) Hemoglobin 8.0 g/dL (13.0-17.5) Hematocrit 24.1 % (39.0-53.0) Mean Corpuscular Volume 87 fL (79-100) Mean Corpuscular Hemoglobin 29 pg (25-35) Mean Corpuscular Hemoglobin Concent 33 g/dL (31-37) Red Cell Distribution Width 16.7 % (11.5-14.5) Platelet Count 464 x10^3/uL (140-400) Neutrophils (%) (Auto) 60 % (31-73) Lymphocytes (%) (Auto) 22 % (24-48) Monocytes (%) (Auto) 15 % (0-9) Eosinophils (%) (Auto) 2 % (0-3) Basophils (%) (Auto) 1 % (0-3) Neutrophils # (Auto) 5.9 x10^3/uL (1.8-7.7) Lymphocytes # (Auto) 2.1 x10^3/uL (1.0-4.8) Monocytes # (Auto) 1.5 x10^3/uL (0.0-1.1) Eosinophils # (Auto) 0.2 x10^3/uL (0.0-0.7) Basophils # (Auto) 0.1 x10^3/uL (0.0-0.2) Sodium Level 135 mmol/L (136-145) Potassium Level 3.9 mmol/L (3.5-5.1) Chloride Level 99 mmol/L (98-107) Carbon Dioxide Level 30 mmol/L (21-32) Anion Gap 6 (6-14) Blood Urea Nitrogen 8 mg/dL (8-26) Creatinine 0.6 mg/dL (0.7-1.3) Estimated GFR (Cockcroft-Gault) 138.4 BUN/Creatinine Ratio 13 (6-20) Glucose Level 82 mg/dL (70-99) Calcium Level 8.7 mg/dL (8.5-10.1) Total Bilirubin 0.2 mg/dL (0.2-1.0) Aspartate Amino Transf (AST/SGOT) 29 U/L (15-37) Alanine Aminotransferase (ALT/SGPT) 37 U/L (16-63) Alkaline Phosphatase 106 U/L (46-116) Total Protein 6.7 g/dL (6.4-8.2) Albumin 2.2 g/dL (3.4-5.0) Albumin/Globulin Ratio 0.5 (1.0-1.7) Test 02/07/19 07:59 02/07/19 12:05 02/07/19 16:53 02/07/19 20:41 Glucose (Fingerstick) 92 mg/dL (70-99) 113 mg/dL (70-99) 152 mg/dL (70-99) 218 mg/dL (70-99) Test 02/08/19 07:42 Glucose (Fingerstick) 86 mg/dL (70-99) Laboratory Tests Test 02/07/19 12:05 02/07/19 16:53 02/07/19 20:41 02/08/19 07:42 Glucose (Fingerstick) 113 mg/dL (70-99) 152 mg/dL (70-99) 218 mg/dL (70-99) 86 mg/dL (70-99) Assessment/Plan ok to dc home with drain FU on at 845 JODIE RUIZ MD 02/08/19 1245: SURGICAL PROGRESS NOTE Assessment/Plan Pt seen and examined. Agree with Ms. Duran's note Pt feels better, abd soft, mass smaller OK to d/c home, f/u soon NIKOLAY DURAN APRN Feb 08, 2019 09:07 JODIE RUIZ MD Feb 08, 2019 12:45
[2019-02-08 11:00] VITALS: BP 142/69
--- NOTE | 2019-02-08 11:16 | PN ---
DATE: 02/08/2019 SUBJECTIVE: The patient is 58-year-old male patient who was admitted as he has been complaining of pain in the epigastric area and a CT scan done at his primary care office showed that he has big fluid-filled mass that was about 4 x 10 x 6 cm going into the abdominal wall that could be biliary leak. He was evaluated in the Emergency Room and was transferred to [facility] for possible bile leak as he undergone laparoscopic cholecystectomy about 4 months ago. He denied any nausea or vomiting. Denied any diarrhea or constipation. Denied any trauma or fall and he is known to have a pancreatic pseudocyst in the pancreatic tail. 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 He was started on IV antibiotic in the form of meropenem and his culture showed growth of Fusobacterium nucleatum with beta lactamase negative. The drainage is much less; however, a repeat CT scan showed that he had it drained, intrahepatic abscess has mostly resolved with a small collection lateral to the drain measures 3 x 1.8 cm subcutaneous collection along the drain and measures 6.7 x 3.2. He also has about 4.2 cm pseudocyst at the pancreatic tail with changes of chronic pancreatitis and a metallic common duct stent is in place. The patient was discharged home to continue on oral Augmentin at 875 mg twice a day and to follow with the Infectious Disease as well as surgical team on 02/16/2019. PHYSICAL EXAMINATION: GENERAL: When I saw him today, he was resting slightly propped up in bed, in no apparent respiratory distress. No pallor, jaundice, cyanosis or thyromegaly. No jugular venous distention. No lower limb edema. VITAL SIGNS: His heart rate was 68, blood pressure was 171/71, temperature was 98.1, respiratory rate was 16, and oxygen saturation was 94%. HEAD, EYES, EARS, NOSE AND THROAT: Showed normocephalic, atraumatic. NECK: Supple. HEART: Showed normal first and second heart sounds. No gallop, rub or murmur. CHEST: Clear to auscultation. No crepitation or rhonchi. ABDOMEN: Slightly distended, soft with a ALFONSO drain in the epigastric area, draining the intra-abdominal abscess and there is no guarding or rigidity. No organomegaly. All hernial orifices intact. Bowel sounds normal. NEUROLOGIC: He was awake, alert, responding appropriately. All cranial nerves are intact. He moves extremities without difficulty, ambulates without assistance or assistive devices. LABORATORY DATA: Showed a white cell count 9900, hemoglobin 8, hematocrit 24, MCV 87 and platelet count 464,000. His chemistry showed a serum sodium 135, potassium 3.9, chloride 99, bicarbonate 30, anion gap of 6, BUN 8, creatinine 0.6, estimated GFR was 138 mL per minute. His glucose was 82, calcium was 8.7. Total bilirubin, AST, ALT, alkaline phosphatase were normal. Total protein was 6.7, albumin was 2.2. His prothrombin time was 13.8, INR 1.1. He was discharged home to continue on aspirin 81 mg once a day, Plavix 75 mg once a day, diltiazem hydrochloride 240 mg once a day, Nexium 40 mg once a day, ibuprofen 800 mg every 6 hours, Lantus insulin 20 units at bedtime, meloxicam 15 mg daily, multivitamin 1 tablet once a day, tramadol 50 mg once a day, Chantix 1 mg twice a day for smoke cessation. 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 The patient will follow with Dr. Cole on 02/16/2019. He will continue with Augmentin 875 mg twice a day with food for 10 more days. Other medical problems include type 2 diabetes mellitus, hypertension, chronic obstructive pulmonary disease, chronic calcific pancreatitis, alcoholism, and tobacco use disorder. AUSTIN ESPINOZA MD DR: ANAHY/niranjan JOB#: [id number] / [id number]
--- NOTE | 2019-02-08 12:30 | NUR ---
Pt. discharged to home with Rx, verbalized understanding of discharge instructions and home drain care. L rick HAMILTON CDI.
--- NOTE | 2019-02-08 12:32 | PDOC ---
Subjective: Subjective: Going home today. Says he had both EGD and colonoscopy "and lots of stuff" at this year. Objective: Vital Signs: Vital Signs Date Time Temp Pulse Resp B/P (MAP) Pulse Ox O2 Delivery O2 Flow Rate FiO2 02/08/19 11:00 98.1 69 16 142/69 (93) 94 Room Air 98.1 Labs: Laboratory Tests Test 02/07/19 16:53 02/07/19 20:41 02/08/19 07:42 02/08/19 11:04 Glucose (Fingerstick) 152 mg/dL (70-99) 218 mg/dL (70-99) 86 mg/dL (70-99) 220 mg/dL (70-99) PE: GEN: NAD - dressed to leave NEURO/PSYCH: A & O 3 A/P: Abd fluid collection s/p drain - Fusobacterium [facility] - now reports EGD and colonoscopy @ earlier this year Chronic pancreatitis - alcohol, s/p cholecystectomy - psuedocyst w/ h/o drainage, stents in place -- DC per primary. Says he will talk to Dr. Moreno re: previous scopes. DEYA SHAFFER Feb 08, 2019 12:32
--- NOTE | 2019-02-08 13:04 | NUR ---
SW following for discharge planning. Chart reviewed, discussed with RN. Pt discharging home today with self care, PO abx. RN advised pt is able to take care of his drain himself. RN advised no SW needs at this time. SW will continue to follow should any discharge needs arise.
== END 2019-02-08 12:25 | disposition home or self-care (01) | DRG 602 ==
LOC: 4 NORTH 22:50
PROVIDERS: ADMIT Internal Medicine; ATTEND Internal Medicine
PROC: 0W9F3ZZ Drainage of Abdominal Wall, Percutaneous Approach (ICD-10-PCS; principal; 2019-02-01)
DX: L02.211 Cutaneous abscess of abdominal wall (principal); E43 Unspecified severe protein-calorie malnutrition; K85.90 Acute pancreatitis without necrosis or infection, unspecified; K86.1 Other chronic pancreatitis; K86.3 Pseudocyst of pancreas; R18.8 Other ascites; I10 Essential (primary) hypertension; J44.9 Chronic obstructive pulmonary disease, unspecified; Z96.641 Presence of right artificial hip joint; F17.210 Nicotine dependence, cigarettes, uncomplicated; K21.9 Gastro-esophageal reflux disease without esophagitis; M19.90 Unspecified osteoarthritis, unspecified site; K57.30 Diverticulosis of large intestine without perforation or abscess without bleeding; K76.0 Fatty (change of) liver, not elsewhere classified; Z96.651 Presence of right artificial knee joint; D64.9 Anemia, unspecified; I70.203 Unspecified atherosclerosis of native arteries of extremities, bilateral legs; D50.9 Iron deficiency anemia, unspecified; F10.20 Alcohol dependence, uncomplicated; I70.8 Atherosclerosis of other arteries; Z90.49 Acquired absence of other specified parts of digestive tract; Z88.8 Allergy status to other drugs, medicaments and biological substances; Z82.49 Family history of ischemic heart disease and other diseases of the circulatory system; Z80.3 Family history of malignant neoplasm of breast; Z68.24 Body mass index [BMI] 24.0-24.9, adult; Z86.73 Personal history of transient ischemic attack (TIA), and cerebral infarction without residual deficits
CPT/HCPCS: 36415; 49406; 74177; 80048; 80053; 82607; 82962; 83540; 83550; 84145; 85007; 85025; 85027; 85610; 87071; 87075; 90471; 90686; A4215; C1729; C1892; C1894; J1170; J1815; J2185; J2270; J7030; Q9966; Q9967; G0378

== ENCOUNTER 2019-07-08 09:10 | Inpatient (IN) | payer BC ==
[~2019-07-08] VITALS: Ht 180.3 cm; Wt 79.0 kg
[2019-07-08 08:30] VITALS: BP 150/75
[~2019-07-08 09:10] MED LIST changes: +DILT240C33 PO; +IBUP-1060 PO; +MULT-154 PO; +VARE1TAB21 PO
[2019-07-08 11:00] VITALS: BP 140/66
[2019-07-08] MEDS ORDERED: ONDANSETRON PF 4 MG/2 ML VIAL. IVP PRN (11:15)
[2019-07-08 11:48] LABS: CALCIUM 8.8 mg/dL (8.5-10.1); CREATININE 0.7 mg/dL (0.7-1.3); GFR 115.8; POTASSIUM 3.3 mmol/L (3.5-5.1)
[2019-07-08] MEDS: POTASSIUM CL 40MEQ IN 0.9%NACL 1,000 ML IV SCH (11:48)
[2019-07-08] MEDS: PIPERACILLIN/TAZOBACTAM 3.375 GM in IV NORMAL SALINE 50ML 50 ML IV SCH ×2 (11:49→18:02)
[2019-07-08 11:51] LABS: HEMATOCRIT 37.8 % (39.0-53.0); HEMOGLOBIN 12.5 g/dL (13.0-17.5); RED BLOOD COUNT 4.07 x10^6/uL (4.30-5.70); RED CELL DISTRIBUTION WIDTH 17.8 % (11.5-14.5)
[2019-07-08 11:54] LABS: ALBUMIN 1.9 g/dL (3.4-5.0); ALBUMIN/GLOBULIN RATIO 0.5 (1.0-1.7); TOTAL BILIRUBIN 16.9 mg/dL (0.2-1.0); TOTAL PROTEIN 5.6 g/dL (6.4-8.2)
--- NOTE | 2019-07-08 11:59 | HP ---
ADMIT DATE: 07/08/2019 HISTORY OF PRESENT ILLNESS: The patient is a 58-year-old male patient, who presented to the Emergency Room of [facility] complaining of pain in his right lower abdomen that started last Thursday after he had eaten some pizza according to him. The patient denied any intake of bad food. He has eaten pizza at this meal. He denied any nausea or vomiting, denied any diarrhea. He stated that he drank 6 beers on , but has not drank anything since then; has been taking ibuprofen 600 mg every 4 hours for the right lower quadrant abdominal pain. He is known to have alcoholic pancreatitis and he said that he has been drinking alcohol in March, April and up until 05/31/2019 when he stopped drinking and last Thursday was the first time he started drinking again. He continues obviously to smoke and he presented today. On arrival to the Emergency Room, he was obviously jaundiced with a direct bilirubin lab work of 14. He was also hyponatremic and hypokalemic. His white cell count was high at 20,000, although surprisingly his prothrombin time, INR and aPTT were all normal. Urinalysis showed there is moderate amount of proteinuria; however, there was large amount of bilirubin and his toxic screen was positive for opiates, but his blood alcohol level was less than 10 mg; has had acute abdomen series, which showed no acute process in the chest, no bowel obstruction evident, biliary and pancreatic ductal stents again noted. He did have a CT scan of the abdomen and pelvis with oral and IV contrast, which showed that the patient had development of a prominent biliary ductal dilatation now since the prior exam, bleeding after the biliary stent at the head of the pancreas indicating obstruction of the stent. There is also a pancreatic stent present. There is a 3 cm soft tissue density at the head of the pancreas, previously measured 2 cm. This could indicate a tumor of the head of the pancreas versus enlargement of the pancreas from pancreatitis, although no significant edema is present to suggest acute pancreatitis otherwise. He has also supraumbilical ventral abdominal hernia containing a segment of the transverse colon, but there is no evidence of bowel obstruction or inflammation. There is mild edema of the herniated fat within the hernia sac and therefore, the patient was transferred to [facility] to consult the Gastroenterology team and to start him on IV antibiotic given the biliary obstruction, possible ascending cholangitis. PAST MEDICAL HISTORY: Significant for type 2 diabetes, hypertension, chronic obstructive pulmonary disease, chronic pancreatitis, chronic alcoholism and nicotine dependence. PAST SURGICAL HISTORY: Significant for laparoscopic cholecystectomy, right total hip arthroplasty, right biceps tendon attachment, reconstruction of the right knee joint. He has also underwent ERCP and stent deployment to common bile duct and pancreatic duct. ALLERGIES: HE IS ALLERGIC TO LISINOPRIL HE DEVELOPED ANGIONEUROTIC EDEMA. FAMILY HISTORY: He has 1 younger brother who has macular muscular dystrophy. Two sisters are older and seemingly healthy. His father at the age of 78 because of metastatic cancer of unknown primary. His mother at the age of 72 after she survived breast cancer for 28 years and has recurred and became metastatic. SOCIAL HISTORY: He is , has 3 sons and 1 daughter. He smokes 10 cigarettes a day. He drinks alcohol, according to him, only on Sundays while watching football games. He drinks about 6 cans of beer. He used to work for [employer] and now works for [employer]. MEDICATIONS: He is currently on the following medications: He is on Chantix as directed, Plavix 75 mg once a day, diltiazem hydrochloride 240 mg once a day, ibuprofen 800 mg every 2-4 hours p.r.n., is on meloxicam 15 mg daily, tramadol 50 mg every 6 hours, Nexium 40 mg daily and Lantus SoloSTAR 20 units subcutaneously at bedtime and multivitamin 1 tablet once a day. REVIEW OF SYSTEMS: As per history of present illness. PHYSICAL EXAMINATION: GENERAL: On arrival to the Emergency Room, he was resting slightly propped up in bed, in no apparent respiratory distress. He was definitely jaundiced, but not cyanosed. No lymphadenopathy, no thyromegaly. No jugular venous distention. No limb edema. VITAL SIGNS: His heart rate was 81, blood pressure was 168/100, temperature was 98.6, respiratory rate was 16, and oxygen saturation was 97% on room air. HEAD, EYES, EARS, NOSE AND THROAT: Normocephalic, atraumatic. NECK: Supple. HEART: Showed normal first and second heart sounds. No gallop or murmur. CHEST: Clear to auscultation. No crepitation or rhonchi. ABDOMEN: Distended with a midline supraumbilical hernia that is easily reducible. He has some tenderness mostly in the right upper quadrant. There is no guarding or rigidity. No organomegaly. All hernial orifice intact. Bowel sounds normal. NEUROLOGIC: He is awake, alert, responding appropriately. All his cranial nerves are intact. EXTREMITIES: He moves extremities without difficulty, ambulates without assistance or assistive devices. LABORATORY DATA: His lab work showed a white cell count of 20,000; hemoglobin 12; hematocrit 36; MCV 94 and platelet count of 332,000 with normal manual differential. His chemistry showed serum sodium was 127, potassium 2.9, chloride 90, bicarbonate 23, anion gap of 14, BUN 12, creatinine 0.8, estimated GFR was 99 mL per minute. His glucose was 166, lactic acid was less than 0.3, calcium was 9.7. Total bilirubin was 16.5. Direct bilirubin was 14.2. AST, ALT were elevated. Alkaline phosphatase was 893. His lactic acid was 127. CK was only 20. Total protein was 7, albumin was 2.3. Amylase and lipase were normal. His prothrombin time, INR and aPTT were normal. Urinalysis was essentially unremarkable. Toxic screen was positive for opiates. The blood alcohol level was less than 10. The CT scan of the abdomen showed development of prominent biliary ductal dilatation, new since the prior exam leading up to the biliary stent at the head of the pancreas indicating obstruction of the stent. There is also a pancreatic stent present. There is a 3 cm soft tissue density at the head of the pancreas, previously measured 2 cm. This could indicate a tumor of the head of the pancreas versus enlargement from pancreatitis, although no significant edema is present to suggest acute pancreatitis otherwise. He has supraumbilical ventral abdominal wall hernia containing a segment of the transverse colon. No evidence of bowel obstruction or inflammation. There is mild edema of the herniated fat within the hernia sac. My plan is to keep the patient n.p.o., start him on IV fluid and to correct his potassium and sodium. Start him on IV antibiotic and consult the Gastroenterology team. AUSTIN ESPINOZA MD DR: ANAHY/niranjan JOB#: [id number] / [id number]
--- NOTE | 2019-07-08 13:17 | PDOC2 ---
GI CONSULT Reason For Consult: Biliary obstruction, pancreatic neoplasm HPI: HPI: 58 y/o male who we saw in 01/2019 for abdominal fluid collection w/ h/o chronic pancreatitis w/ pancreatic and biliary stents (at in 2018) and h/o pseudocyst drainage. Had drain placed/removed by IR here (cx w/ fusobacterium). Hasn't followed up w/ [facility] because he's in no hurry. H/o GERD on Nexium. Per last encounter, reported EGD and colonoscopy at last year. Noted w/ [facility] last time. B12 was normal. S/p cholecystectomy by Dr. Cole in 09/2018 - abscess, adhesions, and fatty liver mentioned on op note, cholecystitis and cholelithiasis on path. Past CT noted chronic calcific pancreatitis, biliary and pancreatic stents, cystic mass in relation to pancreatic tail c/w unchanged pseudocyst, and diverticulosis. To [facility] yesterday w/ RLQ pain that began the day before. Didn't notice he was jaundiced. Tried not eating yesterday to help pain "because I've done this before." Stooling normally. Labs there: WBC 20, Hgb 12.2, bili 16.5, AST 893, ALT 267, Alk Phos 132, K 2.9, tox +opiates. On CT: development of prominent biliary ductal dilation new since the prio exam leading up to the biliary stent at the head of the pancreas indicating obstruction of the stent, pancreatic stent present, 3cm soft tissue density at the head of pancreas (previously 2cm) - tumor vs pancreatitis). Also noted supraumbilical ventral abdominal wall hernia containing a segment of transverse colon (9 x 4 cm) w/o obstruction or inflammation. Summary list shows Meloxicam. Lives alone (?no longer ), still drinks and smokes. PMH: PMH: HTN, COPD, DM, OA, LE atherosclerosis right total hip and knee replacements, right bicep repair FH: Family History: Cancer (father - spinal, mother - breast) Social History: Smoke: 1 pack per day ALCOHOL: heavy ROS: GEN: Denies fevers, chills, sweats HEENT: Denies blurred vision, sore throat CV: Denies chest pain RESP: Denies shortness of air, cough GI: Per HPI : Denies hematuria, dysuria ENDO: Denies weight changes NEURO: Denies confusion, dizziness MSK: Denies weakness, joint pain/swelling SKIN: Denies jaundice, pruritus Vitals: Vitals: Vital Signs Date Time Temp Pulse Resp B/P (MAP) Pulse Ox O2 Delivery O2 Flow Rate FiO2 07/08/19 11:00 98.1 91 18 140/66 (90) 93 Room Air 98.1 Labs: Labs: Laboratory Tests Test 07/08/19 11:30 White Blood Count 24.0 x10^3/uL (4.0-11.0) Red Blood Count 4.07 x10^6/uL (4.30-5.70) Hemoglobin 12.5 g/dL (13.0-17.5) Hematocrit 37.8 % (39.0-53.0) Mean Corpuscular Volume 93 fL (79-100) Mean Corpuscular Hemoglobin 31 pg (25-35) Mean Corpuscular Hemoglobin Concent 33 g/dL (31-37) Red Cell Distribution Width 17.8 % (11.5-14.5) Platelet Count 339 x10^3/uL (140-400) Sodium Level 134 mmol/L (136-145) Potassium Level 3.3 mmol/L (3.5-5.1) Chloride Level 95 mmol/L (98-107) Carbon Dioxide Level 28 mmol/L (21-32) Anion Gap 11 (6-14) Blood Urea Nitrogen 8 mg/dL (8-26) Creatinine 0.7 mg/dL (0.7-1.3) Estimated GFR (Cockcroft-Gault) 115.8 BUN/Creatinine Ratio 11 (6-20) Glucose Level 124 mg/dL (70-99) Calcium Level 8.8 mg/dL (8.5-10.1) Total Bilirubin 16.9 mg/dL (0.2-1.0) Aspartate Amino Transf (AST/SGOT) 92 U/L (15-37) Alanine Aminotransferase (ALT/SGPT) 227 U/L (16-63) Alkaline Phosphatase 830 U/L (46-116) Total Protein 5.6 g/dL (6.4-8.2) Albumin 1.9 g/dL (3.4-5.0) Albumin/Globulin Ratio 0.5 (1.0-1.7) Lipase 25 U/L (73-393) Allergies: Coded Allergies: lisinopril (Verified Allergy, Intermediate, 09/17/18) Medications: Current Medications Medications (Trade) Dose Ordered Sig/Emiliana Route PRN Reason Start Time Stop Time Status Last Admin Dose Admin Potassium Chloride/Sodium Chloride 1,000 ml @ 100 mls/hr Q10H IV 07/08/19 11:15 07/08/19 11:48 Piperacillin Sod/ Tazobactam Sod 3.375 gm/Sodium Chloride 50 ml @ 100 mls/hr Q6HRS IV 07/08/19 12:00 07/08/19 11:49 Imaging: Imaging: Per HPI. PE: GEN: NAD, was asleep HEENT: Atraumatic, PERRL LUNGS: diminished anteriorly HEART: RRR ABD: BS+, soft, reducible ventral hernia - non-tender, RLQ discomfort EXTREMITY: No edema SKIN: +jaundice NEURO/PSYCH: A & O 3, flat A/P: A/P: RLQ pain Leukocytosis, hypokalemia (better), elevated LFTs Abnormal CT: obstructed biliary stent, enlarging soft tissue density in pancreatic head H/o B[facility] GERD - on PPI CRC screen - reportedly UTD at Diverticulosis S/p cholecystectomy Chronic pancreatitis w/ h/o pseudocyst/drainage, biliary and pancreatic stents in place from Fatty liver Ventral hernia containing transverse colon H/o abd fluid collection s/p drainage +tobacco +alcohol -- Seen w/ [facility] - ERCP this afternoon - pt agreeable. Continue atbx. DEYA SHAFFER Jul 08, 2019 13:17
[2019-07-08] MEDS ORDERED: LIDOCAINE 2% PF 5 ML VIAL. ONE (13:35)
[2019-07-08] MEDS ORDERED: PROPOFOL 20 ML IV ONE (13:35)
[2019-07-08] MEDS: fentaNYL PF VIAL 100 MCG/2 ML VIAL IVP PRN ×2 (13:53→19:31)
--- NOTE | 2019-07-08 14:40 | PDOC2 ---
CONSULT Date of Consult Date of Consult DATE: 07/08/19 TIME: 14:35 Reason for Consult Reason for Consult: jaundice Referring Physician Referring Physician: Dr. Alejandro Identification/Chief Complaint Chief Complaint jaundice, abd pain Source Source: Chart review, Patient History of Present Illness Reason for Visit: 58 yo M with extensive pancreatitis issues, s/p previous laparoscopic cholecystectomy. Multiple stents placed at [facility]. Pt presents with jaundice. Past Medical History Cardiovascular: HTN Pulmonary: COPD CENTRAL NERVOUS SYSTEM: TIA GI: Diverticulosis, GERD, Other Hepatobiliary: Cholelithiasis, Other Psych: Other Musculoskeletal: Osteoarthritis Rheumatologic: No pertinent hx Infectious disease: No pertinent hx Renal/: No pertinent hx Endocrine: Diabetes Past Surgical History Past Surgical History: Cholecystectomy, Total hip replacement, Total knee replacement, Other Family History Family History: Hypertension Social History 1 pack per day ALCOHOL: heavy Lives: with Family Current Medications Current Medications Current Medications Potassium Chloride/Sodium Chloride 1,000 ml @ 100 mls/hr Q10H IV Last adm inistered on 07/08/19at 11:48; Start 07/08/19 at 11:15 Piperacillin Sod/ Tazobactam Sod 3.375 gm/Sodium Chloride 50 ml @ 100 mls/hr Q6HRS IV Last administered on 07/08/19at 11:49; Start 07/08/19 at 12:00 Ondansetron HCl (Zofran) 4 mg PRN Q4HRS PRN IVP NAUSEA/VOMITING; Start 07/08/19 at 11:15 Fentanyl Citrate (Fentanyl 2ml Vial) 50 mcg PRN Q3HRS PRN IVP PAIN Last administered on 07/08/19at 13:53; Start 07/08/19 at 11:15 Multivitamins 10 ml/Thiamine HCl 100 mg/Folic Acid 1 mg/Sodium Chloride 1,011.2 ml @ 100 mls/ hr DAILY IV ; Start 07/09/19 at 09:00; Stop 07/13/19 at 19:07 Lorazepam (Ativan Inj) 2 mg PRN Q15MIN PRN IV SEE COMMENTS; Start 07/08/19 at 11:15; Status Cancel Pantoprazole Sodium (PROTONIX VIAL for IV PUSH) 40 mg DAILYAC IVP ; Start 07/09/19 at 07:30 Lorazepam (Ativan Inj) 2 mg PRN Q1HR PRN IV For CIWA 8-14; Start 07/08/19 at 11:30 Propofol 20 ml @ As Directed STK-MED ONCE IV ; Start 07/08/19 at 13:35; Stop 07/08/19 at 13:35; Status DC Lidocaine HCl (Lidocaine Pf 2% Vial) 5 ml STK-MED ONCE .ROUTE ; Start 07/08/19 at 13:35; Stop 07/08/19 at 13:35; Status DC Active Scripts Active Reported One-A-Day Essential (Multivitamin) 1 Each Tablet 1 Tab PO DAILY 30 Days Diltiazem 24Hr Cd (Diltiazem HCl) 240 Mg Cap.er.24h 1 Cap PO DAILY 30 Days Chantix (Varenicline Tartrate) 1 Mg Tablet 1 Mg PO BID Lantus Solostar (Insulin Glargine,Hum.rec.anlog) 100 Unit/1 Ml Insuln.pen 20 Unit SQ DAILY Aspir-Low (Aspirin) 81 Mg Tablet.dr 1 Tab PO DAILY Nexium Capsule (Esomeprazole Magnesium) 40 Mg Capsule.dr 1 Cap PO DAILY Clopidogrel (Clopidogrel Bisulfate) 75 Mg Tablet 1 Tab PO DAILY Meloxicam 15 Mg Tablet 1 Tab PO DAILY Allergies Allergies: Coded Allergies: lisinopril (Verified Allergy, Intermediate, 09/17/18) ROS General: YES: Fatigue, Appetite Gastrointestinal: Yes Abdominal Pain Physical Exam General: Alert, Oriented X3, Cooperative, No acute distress HEENT: Other (icteric sclera) Abdomen: Soft, Other (mild TTP, reducible incisional hernia) Extremities: No clubbing, No cyanosis Skin: No rashes, No breakdown Neuro: Normal speech, Sensation intact Psych/Mental Status: Mental status NL, Mood NL Vitals VITALS Vital Signs Date Time Temp Pulse Resp B/P (MAP) Pulse Ox O2 Delivery O2 Flow Rate FiO2 07/08/19 11:00 98.1 91 18 140/66 (90) 93 Room Air 98.1 Labs Labs Laboratory Tests Test 07/08/19 11:30 White Blood Count 24.0 x10^3/uL (4.0-11.0) Red Blood Count 4.07 x10^6/uL (4.30-5.70) Hemoglobin 12.5 g/dL (13.0-17.5) Hematocrit 37.8 % (39.0-53.0) Mean Corpuscular Volume 93 fL (79-100) Mean Corpuscular Hemoglobin 31 pg (25-35) Mean Corpuscular Hemoglobin Concent 33 g/dL (31-37) Red Cell Distribution Width 17.8 % (11.5-14.5) Platelet Count 339 x10^3/uL (140-400) Sodium Level 134 mmol/L (136-145) Potassium Level 3.3 mmol/L (3.5-5.1) Chloride Level 95 mmol/L (98-107) Carbon Dioxide Level 28 mmol/L (21-32) Anion Gap 11 (6-14) Blood Urea Nitrogen 8 mg/dL (8-26) Creatinine 0.7 mg/dL (0.7-1.3) Estimated GFR (Cockcroft-Gault) 115.8 BUN/Creatinine Ratio 11 (6-20) Glucose Level 124 mg/dL (70-99) Calcium Level 8.8 mg/dL (8.5-10.1) Total Bilirubin 16.9 mg/dL (0.2-1.0) Aspartate Amino Transf (AST/SGOT) 92 U/L (15-37) Alanine Aminotransferase (ALT/SGPT) 227 U/L (16-63) Alkaline Phosphatase 830 U/L (46-116) Total Protein 5.6 g/dL (6.4-8.2) Albumin 1.9 g/dL (3.4-5.0) Albumin/Globulin Ratio 0.5 (1.0-1.7) Lipase 25 U/L (73-393) Laboratory Tests Test 07/08/19 11:30 White Blood Count 24.0 x10^3/uL (4.0-11.0) Red Blood Count 4.07 x10^6/uL (4.30-5.70) Hemoglobin 12.5 g/dL (13.0-17.5) Hematocrit 37.8 % (39.0-53.0) Mean Corpuscular Volume 93 fL (79-100) Mean Corpuscular Hemoglobin 31 pg (25-35) Mean Corpuscular Hemoglobin Concent 33 g/dL (31-37) Red Cell Distribution Width 17.8 % (11.5-14.5) Platelet Count 339 x10^3/uL (140-400) Sodium Level 134 mmol/L (136-145) Potassium Level 3.3 mmol/L (3.5-5.1) Chloride Level 95 mmol/L (98-107) Carbon Dioxide Level 28 mmol/L (21-32) Anion Gap 11 (6-14) Blood Urea Nitrogen 8 mg/dL (8-26) Creatinine 0.7 mg/dL (0.7-1.3) Estimated GFR (Cockcroft-Gault) 115.8 BUN/Creatinine Ratio 11 (6-20) Glucose Level 124 mg/dL (70-99) Calcium Level 8.8 mg/dL (8.5-10.1) Total Bilirubin 16.9 mg/dL (0.2-1.0) Aspartate Amino Transf (AST/SGOT) 92 U/L (15-37) Alanine Aminotransferase (ALT/SGPT) 227 U/L (16-63) Alkaline Phosphatase 830 U/L (46-116) Total Protein 5.6 g/dL (6.4-8.2) Albumin 1.9 g/dL (3.4-5.0) Albumin/Globulin Ratio 0.5 (1.0-1.7) Lipase 25 U/L (73-393) Images Images CT with ductal dilation, concern for pancreatic mass Assessment/Plan Assessment/Plan Obstructing jaundice agree with ERCP per GI favor current issue secondary to stent obstruction Unknown if mass is secondary to benign or malignant process. Favor benign given chronicity. Will check Ca 19-9. Pt ultimately may require surgical bypass and/or resection, although pt is poor surgical candidate and pt reports not interested in surgery. Thanks for consult! JODIE RUIZ MD Jul 08, 2019 14:40
[2019-07-08] MEDS ORDERED: IOHEXOL 300 MG/ML 100ML VIAL. ONE (14:43)
[2019-07-08 15:00] VITALS: BP 142/69
[2019-07-08] MEDS: IV RINGERS,LACTATED 1000ML 1,000 ML IV SCH (15:30)
--- NOTE | 2019-07-08 16:08 | NUR ---
This RN did not complete 1600 alcohol withdrawal assessment due to pt being off unit in a procedure. Will assess when pt returns.
[2019-07-08] MEDS ORDERED: IOHEXOL 300 MG/ML 50 ML VIAL. INT CAT ONE (16:40)
--- NOTE | 2019-07-08 17:04 | PDOC4 ---
Operative Note Operative Note ERCP with stone/sludge removal Meds propofol per anesthesia Pre-op dx jaundice/wall stent prior Post-op dx intact wall stent with occlusin secondary to stones/sludge s/p extraction Plan advance diet antibiotics serial labs ALEJO FAIRBANKS MD Jul 08, 2019 17:04
--- NOTE | 2019-07-08 17:41 | RAD ---
ERCP BILIARY DUCT SYSYEM History: Common bile obstruction Comparison: None. Findings: Interpretation is made of submitted images only, exam performed by different physician. 4 low resolution images demonstrate endoscopy apparatus with subsequent injection of contrast opacification of a dilated duct, irregular margins more distally with or focal area of decreased opacification. Images are not labeled as to the side of the patient although presumed the opacified duct is coursing into the common bile duct and liver on the right. There appears to be deployment of stent. Fluoroscopy time 1.33 minutes. Impression: 1. Intraprocedural views from an ERCP as stated, please see full report from the performing provider of intraprocedural technique and findings. Electronically signed by: Regan Pearce MD (07/08/2019 5:38 PM) SHANIKAROCCO
[2019-07-08 19:00] VITALS: BP 117/63
[2019-07-08 23:06] VITALS: BP 135/63
[2019-07-09] MEDS: PIPERACILLIN/TAZOBACTAM 3.375 GM in IV NORMAL SALINE 50ML 50 ML IV SCH ×5 (00:38→23:57)
[2019-07-09] MEDS: POTASSIUM CL 40MEQ IN 0.9%NACL 1,000 ML IV SCH ×3 (00:39→17:15)
[2019-07-09] MEDS: IV RINGERS,LACTATED 1000ML 1,000 ML IV SCH ×3 (01:30→21:30)
[2019-07-09 02:20] LABS: BASO # 0.1 x10^3/uL (0.0-0.2); BASO % 1 % (0-3); EOS # 0.3 x10^3/uL (0.0-0.7); EOS % 1 % (0-3); HEMATOCRIT 30.6 % (39.0-53.0); HEMOGLOBIN 10.1 g/dL (13.0-17.5); LYMPH # 6.2 x10^3/uL (1.0-4.8); LYMPH % 22 % (24-48); MEAN CORPUSCULAR HEMOGLOBIN 31 pg (25-35); MEAN CORPUSCULAR HGB CONC 33 g/dL (31-37); MEAN CORPUSCULAR VOLUME 93 fL (79-100); MONO # 3.2 x10^3/uL (0.0-1.1); MONO % 11 % (0-9); NEUT # 18.3 x10^3/uL (1.8-7.7); NEUT % 65 % (31-73); PLATELET COUNT 285 x10^3/uL (140-400); RED CELL DISTRIBUTION WIDTH 17.7 % (11.5-14.5); WHITE BLOOD COUNT 28.2 x10^3/uL (4.0-11.0)
[2019-07-09 03:18] VITALS: BP 132/48
[2019-07-09 03:49] LABS: AMYLASE 21 U/L (25-115); LIPASE 23 U/L (73-393)
[2019-07-09] MEDS: fentaNYL PF VIAL 100 MCG/2 ML VIAL IVP PRN ×6 (06:27→23:57)
[2019-07-09 06:48] LABS: ALBUMIN 1.6 g/dL (3.4-5.0); ALBUMIN/GLOBULIN RATIO 0.4 (1.0-1.7); CALCIUM 8.4 mg/dL (8.5-10.1); CREATININE 0.8 mg/dL (0.7-1.3); GFR 99.3; POTASSIUM 3.6 mmol/L (3.5-5.1); TOTAL BILIRUBIN 8.8 mg/dL (0.2-1.0); TOTAL PROTEIN 5.7 g/dL (6.4-8.2)
[2019-07-09] MEDS ORDERED: PANTOPRAZOLE IV PUSH 40 MG VIAL. IVP SCH (07:30)
[2019-07-09 07:59] VITALS: BP 148/70
[2019-07-09] MEDS ORDERED: MULTIVIT INFUSN,ADULT 4,VIT K 10 ML, THIAMINE INJ 100 MG, FOLIC ACID INJ 1 MG in IV NOR... IV SCH (09:00)
--- NOTE | 2019-07-09 10:57 | PN ---
DATE: 07/09/2019 SUBJECTIVE: The patient is resting, slightly propped up in bed, in no apparent respiratory distress. He continued to complain of some pain in his right upper quadrant. He underwent ERCP successfully. Apparently, the biliary stent was occluded with stones and sludge that were extracted. He is now on a regular diet, tolerating it well. PHYSICAL EXAMINATION: GENERAL: When I examined him, he looked pale, jaundiced, but not cyanosed. No lymphadenopathy. No thyromegaly. No jugular venous distention. No lower limb edema. VITAL SIGNS: His heart rate was 89, blood pressure was 148/70, temperature was 98.1, respiratory rate was 18 and oxygen saturation was 94% on room air. HEAD, EYES, EARS, NOSE AND THROAT: Showed normocephalic, atraumatic. NECK: Supple. HEART: Showed normal first and second heart sounds. No gallop, rub or murmur. CHEST: Clear to auscultation. No crepitation or rhonchi. ABDOMEN: Distended, soft, nontender. NEUROLOGIC: He was awake, alert, responding appropriately. All cranial nerves are intact. He moves extremities without difficulty. He ambulates without assistance or assistive devices. His intake and output are incompletely recorded. LABORATORY DATA: His lab work this morning showed a serum sodium 132, potassium 3.6, chloride 98, bicarbonate 24, anion gap of 10, BUN 15, creatinine 0.8, estimated GFR was 99 mL per minute. His glucose was 119, calcium was 8.4, total bilirubin is down to 8.8. AST, ALT, alkaline phosphatase are elevated, although they are trending down. Total protein was 5.7, albumin is 1.6. His amylase and lipase were normal. His white cell count is 28,000, hemoglobin 10, hematocrit 30, MCV 93, and platelet count 285,000. ASSESSMENT: 1. Obstructive jaundice due to occlusion of the Wallstent with stones and sludge status post endoscopic retrograde cholangiopancreatography and extraction. 2. Chronic pancreatitis; however, his lipase and amylase are normal. 3. Type 2 diabetes. 4. Hypertension. 5. Chronic obstructive pulmonary disease. 6. Chronic alcoholism. 7. Nicotine dependence. PLAN: My plan is to continue with IV antibiotic in the form of Zosyn 3.375 g IV every 6 hours. Continue with pain management. Continue with IV fluid. Continue with alcohol withdrawal protocol. AUSTIN ESPINOZA MD DR: ANAHY/niranjan JOB#: [id number] / [id number]
[2019-07-09] MEDS: VARENICLINE 0.5 MG TABLET. PO SCH ×2 (11:30→20:49)
--- NOTE | 2019-07-09 11:51 | PDOC ---
SURGICAL PROGRESS NOTE Subjective Pt with c/o RLQ abd pain, but labs improved Vital Signs Vital Signs Date Time Temp Pulse Resp B/P (MAP) Pulse Ox O2 Delivery O2 Flow Rate FiO2 07/09/19 09:06 16 Room Air 07/09/19 07:59 98.1 89 148/70 (96) 94 98.1 07/08/19 17:21 2 I&O Intake and Output 07/09/19 06:59 Intake Total 1900 ml Balance 1900 ml IV Total 1900 ml # Voids 3 General: Alert, Oriented X3, Cooperative, mild distress Abdomen: Soft, Other (mild TTP) Labs Laboratory Tests Test 07/08/19 11:30 07/08/19 21:03 07/09/19 01:09 07/09/19 08:25 White Blood Count 24.0 x10^3/uL (4.0-11.0) 28.2 x10^3/uL (4.0-11.0) Red Blood Count 4.07 x10^6/uL (4.30-5.70) 3.30 x10^6/uL (4.30-5.70) Hemoglobin 12.5 g/dL (13.0-17.5) 10.1 g/dL (13.0-17.5) Hematocrit 37.8 % (39.0-53.0) 30.6 % (39.0-53.0) Mean Corpuscular Volume 93 fL (79-100) 93 fL (79-100) Mean Corpuscular Hemoglobin 31 pg (25-35) 31 pg (25-35) Mean Corpuscular Hemoglobin Concent 33 g/dL (31-37) 33 g/dL (31-37) Red Cell Distribution Width 17.8 % (11.5-14.5) 17.7 % (11.5-14.5) Platelet Count 339 x10^3/uL (140-400) 285 x10^3/uL (140-400) Sodium Level 134 mmol/L (136-145) 132 mmol/L (136-145) Potassium Level 3.3 mmol/L (3.5-5.1) 3.6 mmol/L (3.5-5.1) Chloride Level 95 mmol/L (98-107) 98 mmol/L (98-107) Carbon Dioxide Level 28 mmol/L (21-32) 24 mmol/L (21-32) Anion Gap 11 (6-14) 10 (6-14) Blood Urea Nitrogen 8 mg/dL (8-26) 15 mg/dL (8-26) Creatinine 0.7 mg/dL (0.7-1.3) 0.8 mg/dL (0.7-1.3) Estimated GFR (Cockcroft-Gault) 115.8 99.3 BUN/Creatinine Ratio 11 (6-20) 19 (6-20) Glucose Level 124 mg/dL (70-99) 290 mg/dL (70-99) Calcium Level 8.8 mg/dL (8.5-10.1) 8.4 mg/dL (8.5-10.1) Total Bilirubin 16.9 mg/dL (0.2-1.0) 8.8 mg/dL (0.2-1.0) Aspartate Amino Transf (AST/SGOT) 92 U/L (15-37) 45 U/L (15-37) Alanine Aminotransferase (ALT/SGPT) 227 U/L (16-63) 149 U/L (16-63) Alkaline Phosphatase 830 U/L (46-116) 548 U/L (46-116) Total Protein 5.6 g/dL (6.4-8.2) 5.7 g/dL (6.4-8.2) Albumin 1.9 g/dL (3.4-5.0) 1.6 g/dL (3.4-5.0) Albumin/Globulin Ratio 0.5 (1.0-1.7) 0.4 (1.0-1.7) Lipase 25 U/L (73-393) 23 U/L (73-393) Glucose (Fingerstick) 314 mg/dL (70-99) 297 mg/dL (70-99) Neutrophils (%) (Auto) 65 % (31-73) Lymphocytes (%) (Auto) 22 % (24-48) Monocytes (%) (Auto) 11 % (0-9) Eosinophils (%) (Auto) 1 % (0-3) Basophils (%) (Auto) 1 % (0-3) Neutrophils # (Auto) 18.3 x10^3/uL (1.8-7.7) Lymphocytes # (Auto) 6.2 x10^3/uL (1.0-4.8) Monocytes # (Auto) 3.2 x10^3/uL (0.0-1.1) Eosinophils # (Auto) 0.3 x10^3/uL (0.0-0.7) Basophils # (Auto) 0.1 x10^3/uL (0.0-0.2) Amylase Level 21 U/L (25-115) Laboratory Tests Test 07/08/19 21:03 07/09/19 01:09 07/09/19 08:25 Glucose (Fingerstick) 314 mg/dL (70-99) 297 mg/dL (70-99) White Blood Count 28.2 x10^3/uL (4.0-11.0) Red Blood Count 3.30 x10^6/uL (4.30-5.70) Hemoglobin 10.1 g/dL (13.0-17.5) Hematocrit 30.6 % (39.0-53.0) Mean Corpuscular Volume 93 fL (79-100) Mean Corpuscular Hemoglobin 31 pg (25-35) Mean Corpuscular Hemoglobin Concent 33 g/dL (31-37) Red Cell Distribution Width 17.7 % (11.5-14.5) Platelet Count 285 x10^3/uL (140-400) Neutrophils (%) (Auto) 65 % (31-73) Lymphocytes (%) (Auto) 22 % (24-48) Monocytes (%) (Auto) 11 % (0-9) Eosinophils (%) (Auto) 1 % (0-3) Basophils (%) (Auto) 1 % (0-3) Neutrophils # (Auto) 18.3 x10^3/uL (1.8-7.7) Lymphocytes # (Auto) 6.2 x10^3/uL (1.0-4.8) Monocytes # (Auto) 3.2 x10^3/uL (0.0-1.1) Eosinophils # (Auto) 0.3 x10^3/uL (0.0-0.7) Basophils # (Auto) 0.1 x10^3/uL (0.0-0.2) Sodium Level 132 mmol/L (136-145) Potassium Level 3.6 mmol/L (3.5-5.1) Chloride Level 98 mmol/L (98-107) Carbon Dioxide Level 24 mmol/L (21-32) Anion Gap 10 (6-14) Blood Urea Nitrogen 15 mg/dL (8-26) Creatinine 0.8 mg/dL (0.7-1.3) Estimated GFR (Cockcroft-Gault) 99.3 BUN/Creatinine Ratio 19 (6-20) Glucose Level 290 mg/dL (70-99) Calcium Level 8.4 mg/dL (8.5-10.1) Total Bilirubin 8.8 mg/dL (0.2-1.0) Aspartate Amino Transf (AST/SGOT) 45 U/L (15-37) Alanine Aminotransferase (ALT/SGPT) 149 U/L (16-63) Alkaline Phosphatase 548 U/L (46-116) Total Protein 5.7 g/dL (6.4-8.2) Albumin 1.6 g/dL (3.4-5.0) Albumin/Globulin Ratio 0.4 (1.0-1.7) Amylase Level 21 U/L (25-115) Lipase 23 U/L (73-393) Assessment/Plan obstructive jaundice cont per GI no surgical plans. JODIE RUIZ MD Jul 09, 2019 11:50
[2019-07-09 11:59] VITALS: BP 146/72
[2019-07-09] MEDS: INSULIN GLARGINE SYRINGE. SQ SCH (12:27)
[2019-07-09] MEDS: oxyCODONE ER 10 MG TAB.ER.12H PO SCH ×2 (15:35→20:49)
--- NOTE | 2019-07-09 15:44 | PDOC ---
Subjective: Subjective: Pre-op dx jaundice/wall stent prior Post-op dx intact wall stent with occlusion secondary to stones/sludge s/p extraction Objective: Vital Signs: Vital Signs Date Time Temp Pulse Resp B/P (MAP) Pulse Ox O2 Delivery O2 Flow Rate FiO2 07/09/19 15:35 16 Room Air 07/09/19 12:16 89 148/70 07/09/19 11:59 98.2 95 98.2 07/08/19 17:21 2 Labs: Laboratory Tests Test 07/08/19 21:03 07/09/19 01:09 07/09/19 08:25 07/09/19 12:37 Glucose (Fingerstick) 314 mg/dL (70-99) 297 mg/dL (70-99) 269 mg/dL (70-99) White Blood Count 28.2 x10^3/uL (4.0-11.0) Red Blood Count 3.30 x10^6/uL (4.30-5.70) Hemoglobin 10.1 g/dL (13.0-17.5) Hematocrit 30.6 % (39.0-53.0) Mean Corpuscular Volume 93 fL (79-100) Mean Corpuscular Hemoglobin 31 pg (25-35) Mean Corpuscular Hemoglobin Concent 33 g/dL (31-37) Red Cell Distribution Width 17.7 % (11.5-14.5) Platelet Count 285 x10^3/uL (140-400) Neutrophils (%) (Auto) 65 % (31-73) Lymphocytes (%) (Auto) 22 % (24-48) Monocytes (%) (Auto) 11 % (0-9) Eosinophils (%) (Auto) 1 % (0-3) Basophils (%) (Auto) 1 % (0-3) Neutrophils # (Auto) 18.3 x10^3/uL (1.8-7.7) Lymphocytes # (Auto) 6.2 x10^3/uL (1.0-4.8) Monocytes # (Auto) 3.2 x10^3/uL (0.0-1.1) Eosinophils # (Auto) 0.3 x10^3/uL (0.0-0.7) Basophils # (Auto) 0.1 x10^3/uL (0.0-0.2) Sodium Level 132 mmol/L (136-145) Potassium Level 3.6 mmol/L (3.5-5.1) Chloride Level 98 mmol/L (98-107) Carbon Dioxide Level 24 mmol/L (21-32) Anion Gap 10 (6-14) Blood Urea Nitrogen 15 mg/dL (8-26) Creatinine 0.8 mg/dL (0.7-1.3) Estimated GFR (Cockcroft-Gault) 99.3 BUN/Creatinine Ratio 19 (6-20) Glucose Level 290 mg/dL (70-99) Calcium Level 8.4 mg/dL (8.5-10.1) Total Bilirubin 8.8 mg/dL (0.2-1.0) Aspartate Amino Transf (AST/SGOT) 45 U/L (15-37) Alanine Aminotransferase (ALT/SGPT) 149 U/L (16-63) Alkaline Phosphatase 548 U/L (46-116) Total Protein 5.7 g/dL (6.4-8.2) Albumin 1.6 g/dL (3.4-5.0) Albumin/Globulin Ratio 0.4 (1.0-1.7) Amylase Level 21 U/L (25-115) Lipase 23 U/L (73-393) Physical Exam: Physical Exam: PE: GEN: NAD, was asleep HEENT: Atraumatic, PERRL LUNGS: diminished anteriorly HEART: RRR ABD: BS+, soft, reducible ventral hernia - non-tender, RLQ discomfort EXTREMITY: No edema SKIN: +jaundice NEURO/PSYCH: A & O 3, flat Assessment & Plan: Assessment : A RLQ pain Leukocytosis, hypokalemia (better), elevated LFTs Abnormal CT: obstructed biliary stent, enlarging soft tissue density in pancreatic head H/o [place] GERD - on PPI CRC screen - reportedly UTD at Diverticulosis S/p cholecystectomy Chronic pancreatitis w/ h/o pseudocyst/drainage, biliary and pancreatic stents in place from Fatty liver Ventral hernia containing transverse colon H/o abd fluid collection s/p drainage +tobacco +alcohol Plan: ERCP with stone/sludge removal Plan advance diet antibiotics serial labs- LFTs better PIPPA CROSS MD Jul 09, 2019 15:44
[2019-07-09 15:59] VITALS: BP 147/65
[2019-07-09 19:00] VITALS: BP 145/73
[2019-07-09] MEDS: LACTOBACILLUS RHAMNOSUS GG 1 CAPSULE. PO SCH (20:48)
[2019-07-09 23:00] VITALS: BP 156/64
[2019-07-10 03:00] VITALS: BP 154/81
[2019-07-10] MEDS: POTASSIUM CL 40MEQ IN 0.9%NACL 1,000 ML IV SCH ×2 (03:15→09:50)
[2019-07-10 04:59] LABS: BASO # 0.1 x10^3/uL (0.0-0.2); BASO % 0 % (0-3); EOS # 0.2 x10^3/uL (0.0-0.7); EOS % 1 % (0-3); HEMATOCRIT 26.9 % (39.0-53.0); HEMOGLOBIN 8.9 g/dL (13.0-17.5); LYMPH # 5.3 x10^3/uL (1.0-4.8); LYMPH % 29 % (24-48); MEAN CORPUSCULAR HEMOGLOBIN 31 pg (25-35); MEAN CORPUSCULAR HGB CONC 33 g/dL (31-37); MEAN CORPUSCULAR VOLUME 94 fL (79-100); MONO # 2.3 x10^3/uL (0.0-1.1); MONO % 12 % (0-9); NEUT # 10.8 x10^3/uL (1.8-7.7); NEUT % 58 % (31-73); PLATELET COUNT 314 x10^3/uL (140-400); RED BLOOD COUNT 2.86 x10^6/uL (4.30-5.70); RED CELL DISTRIBUTION WIDTH 18.4 % (11.5-14.5); WHITE BLOOD COUNT 18.6 x10^3/uL (4.0-11.0)
[2019-07-10 05:20] LABS: ALBUMIN 1.5 g/dL (3.4-5.0); ALBUMIN/GLOBULIN RATIO 0.3 (1.0-1.7); CALCIUM 8.5 mg/dL (8.5-10.1); CREATININE 0.8 mg/dL (0.7-1.3); GFR 99.3; MAGNESIUM 1.6 mg/dL (1.8-2.4); POTASSIUM 3.4 mmol/L (3.5-5.1); TOTAL BILIRUBIN 3.9 mg/dL (0.2-1.0); TOTAL PROTEIN 5.8 g/dL (6.4-8.2)
[2019-07-10] MEDS: fentaNYL PF VIAL 100 MCG/2 ML VIAL IVP PRN (05:54)
[2019-07-10] MEDS: PIPERACILLIN/TAZOBACTAM 3.375 GM in IV NORMAL SALINE 50ML 50 ML IV SCH ×3 (05:55→18:37)
[2019-07-10 07:59] VITALS: BP 153/75
[2019-07-10] MEDS: CLOPIDOGREL BISULFATE 75 MG TABLET PO SCH (08:37)
[2019-07-10] MEDS: LACTOBACILLUS RHAMNOSUS GG 1 CAPSULE. PO SCH ×2 (08:37→21:06)
[2019-07-10] MEDS: MULTIVITAMIN with MINERAL TABLET. PO SCH (08:37)
[2019-07-10] MEDS: THIAMINE 100 MG TABLET. PO SCH (08:38)
[2019-07-10] MEDS: VARENICLINE 0.5 MG TABLET. PO SCH ×2 (08:38→21:06)
[2019-07-10] MEDS: PANTOPRAZOLE 40 MG TABLET.DR. PO SCH (08:38)
[2019-07-10] MEDS: oxyCODONE ER 10 MG TAB.ER.12H PO SCH ×2 (08:39→21:06)
[2019-07-10] MEDS: NICOTINE 21MG PATCH. TD SCH (08:39)
[2019-07-10] MEDS: FOLIC ACID 1 MG TABLET. PO SCH (08:39)
[2019-07-10] MEDS: INSULIN GLARGINE SYRINGE. SQ SCH (08:49)
[2019-07-10] MEDS ORDERED: MAGNESIUM SULFATE 2GM 50 ML IV ONE (09:30)
--- NOTE | 2019-07-10 09:35 | PN ---
DATE: 07/10/2019 SUBJECTIVE: The patient is resting, slightly propped up in bed, in no apparent respiratory distress. He continued to complain of pain mostly in the right flank and right lower quadrant despite the fact that he underwent ERCP and relieved the biliary obstruction by extraction of the stones and sludge, in fact his liver enzymes and serum bilirubin has dramatically improved. His total bilirubin came down from 17 to 3.9 and his liver enzymes are also trending down. His AST has already normalized and ALT and AST have improved dramatically. His lipase was only 28 and his white cell count is trending down. PHYSICAL EXAMINATION: GENERAL: When I examined him this morning, he was continued to be pale, jaundiced, but not cyanosed. No lymphadenopathy, no thyromegaly. No jugular venous distention. No limb edema. VITAL SIGNS: His heart rate was 71, blood pressure 153/75, temperature was 98.4, respiratory rate 20, and oxygen saturation was 94%. HEAD, EYES, EARS, NOSE AND THROAT: Showed normocephalic, atraumatic. NECK: Supple. HEART: Showed normal first and second heart sounds. No gallop, rub or murmur. CHEST: Clear to auscultation. No crepitation or rhonchi. ABDOMEN: Distended, has a midline easily reducible supraumbilical hernia. No evidence of any obstruction. He is tender in the right lower quadrant, right flank area. NEUROLOGIC: He is grossly intact. His intake was 1900, no output was recorded. LABORATORY DATA: His lab work this morning showed a white cell count down to 18,600, hemoglobin 8.9, hematocrit 27, MCV 94 and platelet count 314,000. His serum sodium was 136, potassium 3.4, chloride 102, bicarbonate 23, anion gap of 11, BUN 15, creatinine 0.8, estimated GFR was 99 mL per minute. His glucose was 165, calcium was 8.5, magnesium was 1.6. Total bilirubin 3.9. AST 33, ALT 11 and alkaline phosphatase was 447. His total protein was 5.8, albumin was 1.5 and serum lipase was 28. ASSESSMENT: 1. Obstructive jaundice due to occlusion of the Wallstent with stones and sludge, status post endoscopic retrograde cholangiopancreatography and extraction, liver enzymes are dramatically improving. Bilirubin is much improved, although they are not yet completely normalized. His serum lipase was normal. 2. Chronic pancreatitis; however, serum lipase and amylase were normal. 3. Type 2 diabetes mellitus, reasonably controlled. 4. Hypertension. 5. Chronic obstructive pulmonary disease. 6. Chronic alcoholism. 7. Nicotine dependence. PLAN: To continue with IV antibiotic in the form of Zosyn at 3.375 grams IV q.6 hourly. Continue with pain management. Continue with IV fluid, continue with alcohol withdrawal protocol. He has hypokalemia and I will change the IV fluid to sodium with normal saline and potassium. AUSTIN ESPINOZA MD DR: ANAHY/niranjan JOB#: [id number] / [id number]
[2019-07-10] MEDS: HYDROmorphone 2 MG/ML VIAL IV PRN ×3 (09:51→21:06)
[2019-07-10 10:50] VITALS: BP 172/81
--- NOTE | 2019-07-10 13:05 | PDOC ---
SURGICAL PROGRESS NOTE Subjective Pt with c/o right sided pain, but otherwise feels much better Vital Signs Vital Signs Date Time Temp Pulse Resp B/P (MAP) Pulse Ox O2 Delivery O2 Flow Rate FiO2 07/10/19 10:50 98.4 74 20 172/81 (111) 95 Room Air 98.4 07/09/19 08:20 2.0 I&O Intake and Output 07/10/19 07:00 Intake Total 750 ml Output Total 350 ml Balance 400 ml Intake Oral 750 ml Output Urine Total 100 ml Stool Total 250 ml # Voids 1 General: Alert, Oriented X3, Cooperative, No acute distress, Other (anicteric) Abdomen: Soft, Other (mild TTP Right side) Labs Laboratory Tests Test 07/08/19 21:03 07/09/19 01:09 07/09/19 08:25 07/09/19 12:37 Glucose (Fingerstick) 314 mg/dL (70-99) 297 mg/dL (70-99) 269 mg/dL (70-99) White Blood Count 28.2 x10^3/uL (4.0-11.0) Red Blood Count 3.30 x10^6/uL (4.30-5.70) Hemoglobin 10.1 g/dL (13.0-17.5) Hematocrit 30.6 % (39.0-53.0) Mean Corpuscular Volume 93 fL (79-100) Mean Corpuscular Hemoglobin 31 pg (25-35) Mean Corpuscular Hemoglobin Concent 33 g/dL (31-37) Red Cell Distribution Width 17.7 % (11.5-14.5) Platelet Count 285 x10^3/uL (140-400) Neutrophils (%) (Auto) 65 % (31-73) Lymphocytes (%) (Auto) 22 % (24-48) Monocytes (%) (Auto) 11 % (0-9) Eosinophils (%) (Auto) 1 % (0-3) Basophils (%) (Auto) 1 % (0-3) Neutrophils # (Auto) 18.3 x10^3/uL (1.8-7.7) Lymphocytes # (Auto) 6.2 x10^3/uL (1.0-4.8) Monocytes # (Auto) 3.2 x10^3/uL (0.0-1.1) Eosinophils # (Auto) 0.3 x10^3/uL (0.0-0.7) Basophils # (Auto) 0.1 x10^3/uL (0.0-0.2) Sodium Level 132 mmol/L (136-145) Potassium Level 3.6 mmol/L (3.5-5.1) Chloride Level 98 mmol/L (98-107) Carbon Dioxide Level 24 mmol/L (21-32) Anion Gap 10 (6-14) Blood Urea Nitrogen 15 mg/dL (8-26) Creatinine 0.8 mg/dL (0.7-1.3) Estimated GFR (Cockcroft-Gault) 99.3 BUN/Creatinine Ratio 19 (6-20) Glucose Level 290 mg/dL (70-99) Calcium Level 8.4 mg/dL (8.5-10.1) Total Bilirubin 8.8 mg/dL (0.2-1.0) Aspartate Amino Transf (AST/SGOT) 45 U/L (15-37) Alanine Aminotransferase (ALT/SGPT) 149 U/L (16-63) Alkaline Phosphatase 548 U/L (46-116) Total Protein 5.7 g/dL (6.4-8.2) Albumin 1.6 g/dL (3.4-5.0) Albumin/Globulin Ratio 0.4 (1.0-1.7) Amylase Level 21 U/L (25-115) Lipase 23 U/L (73-393) Test 07/09/19 17:14 07/09/19 20:35 07/10/19 04:06 07/10/19 07:31 Glucose (Fingerstick) 347 mg/dL (70-99) 332 mg/dL (70-99) 171 mg/dL (70-99) White Blood Count 18.6 x10^3/uL (4.0-11.0) Red Blood Count 2.86 x10^6/uL (4.30-5.70) Hemoglobin 8.9 g/dL (13.0-17.5) Hematocrit 26.9 % (39.0-53.0) Mean Corpuscular Volume 94 fL (79-100) Mean Corpuscular Hemoglobin 31 pg (25-35) Mean Corpuscular Hemoglobin Concent 33 g/dL (31-37) Red Cell Distribution Width 18.4 % (11.5-14.5) Platelet Count 314 x10^3/uL (140-400) Neutrophils (%) (Auto) 58 % (31-73) Lymphocytes (%) (Auto) 29 % (24-48) Monocytes (%) (Auto) 12 % (0-9) Eosinophils (%) (Auto) 1 % (0-3) Basophils (%) (Auto) 0 % (0-3) Neutrophils # (Auto) 10.8 x10^3/uL (1.8-7.7) Lymphocytes # (Auto) 5.3 x10^3/uL (1.0-4.8) Monocytes # (Auto) 2.3 x10^3/uL (0.0-1.1) Eosinophils # (Auto) 0.2 x10^3/uL (0.0-0.7) Basophils # (Auto) 0.1 x10^3/uL (0.0-0.2) Sodium Level 136 mmol/L (136-145) Potassium Level 3.4 mmol/L (3.5-5.1) Chloride Level 102 mmol/L (98-107) Carbon Dioxide Level 23 mmol/L (21-32) Anion Gap 11 (6-14) Blood Urea Nitrogen 15 mg/dL (8-26) Creatinine 0.8 mg/dL (0.7-1.3) Estimated GFR (Cockcroft-Gault) 99.3 BUN/Creatinine Ratio 19 (6-20) Glucose Level 165 mg/dL (70-99) Calcium Level 8.5 mg/dL (8.5-10.1) Magnesium Level 1.6 mg/dL (1.8-2.4) Total Bilirubin 3.9 mg/dL (0.2-1.0) Aspartate Amino Transf (AST/SGOT) 33 U/L (15-37) Alanine Aminotransferase (ALT/SGPT) 101 U/L (16-63) Alkaline Phosphatase 447 U/L (46-116) Total Protein 5.8 g/dL (6.4-8.2) Albumin 1.5 g/dL (3.4-5.0) Albumin/Globulin Ratio 0.3 (1.0-1.7) Lipase 28 U/L (73-393) Test 07/10/19 11:26 Glucose (Fingerstick) 252 mg/dL (70-99) Laboratory Tests Test 07/09/19 17:14 07/09/19 20:35 07/10/19 04:06 07/10/19 07:31 Glucose (Fingerstick) 347 mg/dL (70-99) 332 mg/dL (70-99) 171 mg/dL (70-99) White Blood Count 18.6 x10^3/uL (4.0-11.0) Red Blood Count 2.86 x10^6/uL (4.30-5.70) Hemoglobin 8.9 g/dL (13.0-17.5) Hematocrit 26.9 % (39.0-53.0) Mean Corpuscular Volume 94 fL (79-100) Mean Corpuscular Hemoglobin 31 pg (25-35) Mean Corpuscular Hemoglobin Concent 33 g/dL (31-37) Red Cell Distribution Width 18.4 % (11.5-14.5) Platelet Count 314 x10^3/uL (140-400) Neutrophils (%) (Auto) 58 % (31-73) Lymphocytes (%) (Auto) 29 % (24-48) Monocytes (%) (Auto) 12 % (0-9) Eosinophils (%) (Auto) 1 % (0-3) Basophils (%) (Auto) 0 % (0-3) Neutrophils # (Auto) 10.8 x10^3/uL (1.8-7.7) Lymphocytes # (Auto) 5.3 x10^3/uL (1.0-4.8) Monocytes # (Auto) 2.3 x10^3/uL (0.0-1.1) Eosinophils # (Auto) 0.2 x10^3/uL (0.0-0.7) Basophils # (Auto) 0.1 x10^3/uL (0.0-0.2) Sodium Level 136 mmol/L (136-145) Potassium Level 3.4 mmol/L (3.5-5.1) Chloride Level 102 mmol/L (98-107) Carbon Dioxide Level 23 mmol/L (21-32) Anion Gap 11 (6-14) Blood Urea Nitrogen 15 mg/dL (8-26) Creatinine 0.8 mg/dL (0.7-1.3) Estimated GFR (Cockcroft-Gault) 99.3 BUN/Creatinine Ratio 19 (6-20) Glucose Level 165 mg/dL (70-99) Calcium Level 8.5 mg/dL (8.5-10.1) Magnesium Level 1.6 mg/dL (1.8-2.4) Total Bilirubin 3.9 mg/dL (0.2-1.0) Aspartate Amino Transf (AST/SGOT) 33 U/L (15-37) Alanine Aminotransferase (ALT/SGPT) 101 U/L (16-63) Alkaline Phosphatase 447 U/L (46-116) Total Protein 5.8 g/dL (6.4-8.2) Albumin 1.5 g/dL (3.4-5.0) Albumin/Globulin Ratio 0.3 (1.0-1.7) Lipase 28 U/L (73-393) Test 07/10/19 11:26 Glucose (Fingerstick) 252 mg/dL (70-99) Problem List obstructing jaundice will add some PO pain meds. he ultimately may require surgical intervention, but is a poor candidate and would favor EUS prior to any surgery. JODIE RUIZ MD Jul 10, 2019 13:05
[2019-07-10] MEDS: HYDROcodone/APAP 7.5/325MG 1 TAB TABLET PO PRN (13:18)
--- NOTE | 2019-07-10 14:44 | PDOC ---
Subjective: Subjective: Still with RLQ pain Objective: Vital Signs: Vital Signs Date Time Temp Pulse Resp B/P (MAP) Pulse Ox O2 Delivery O2 Flow Rate FiO2 07/10/19 14:30 Room Air 07/10/19 10:50 98.4 74 20 172/81 (111) 95 98.4 07/09/19 08:20 2.0 Labs: Laboratory Tests Test 07/09/19 17:14 07/09/19 20:35 07/10/19 04:06 07/10/19 07:31 Glucose (Fingerstick) 347 mg/dL (70-99) 332 mg/dL (70-99) 171 mg/dL (70-99) White Blood Count 18.6 x10^3/uL (4.0-11.0) Red Blood Count 2.86 x10^6/uL (4.30-5.70) Hemoglobin 8.9 g/dL (13.0-17.5) Hematocrit 26.9 % (39.0-53.0) Mean Corpuscular Volume 94 fL (79-100) Mean Corpuscular Hemoglobin 31 pg (25-35) Mean Corpuscular Hemoglobin Concent 33 g/dL (31-37) Red Cell Distribution Width 18.4 % (11.5-14.5) Platelet Count 314 x10^3/uL (140-400) Neutrophils (%) (Auto) 58 % (31-73) Lymphocytes (%) (Auto) 29 % (24-48) Monocytes (%) (Auto) 12 % (0-9) Eosinophils (%) (Auto) 1 % (0-3) Basophils (%) (Auto) 0 % (0-3) Neutrophils # (Auto) 10.8 x10^3/uL (1.8-7.7) Lymphocytes # (Auto) 5.3 x10^3/uL (1.0-4.8) Monocytes # (Auto) 2.3 x10^3/uL (0.0-1.1) Eosinophils # (Auto) 0.2 x10^3/uL (0.0-0.7) Basophils # (Auto) 0.1 x10^3/uL (0.0-0.2) Sodium Level 136 mmol/L (136-145) Potassium Level 3.4 mmol/L (3.5-5.1) Chloride Level 102 mmol/L (98-107) Carbon Dioxide Level 23 mmol/L (21-32) Anion Gap 11 (6-14) Blood Urea Nitrogen 15 mg/dL (8-26) Creatinine 0.8 mg/dL (0.7-1.3) Estimated GFR (Cockcroft-Gault) 99.3 BUN/Creatinine Ratio 19 (6-20) Glucose Level 165 mg/dL (70-99) Calcium Level 8.5 mg/dL (8.5-10.1) Magnesium Level 1.6 mg/dL (1.8-2.4) Total Bilirubin 3.9 mg/dL (0.2-1.0) Aspartate Amino Transf (AST/SGOT) 33 U/L (15-37) Alanine Aminotransferase (ALT/SGPT) 101 U/L (16-63) Alkaline Phosphatase 447 U/L (46-116) Total Protein 5.8 g/dL (6.4-8.2) Albumin 1.5 g/dL (3.4-5.0) Albumin/Globulin Ratio 0.3 (1.0-1.7) Lipase 28 U/L (73-393) Test 07/10/19 11:26 Glucose (Fingerstick) 252 mg/dL (70-99) Physical Exam: Physical Exam: GEN: NAD, was asleep HEENT: Atraumatic, PERRL LUNGS: diminished anteriorly HEART: RRR ABD: BS+, soft, reducible ventral hernia - non-tender, RLQ discomfort EXTREMITY: No edema SKIN: +jaundice NEURO/PSYCH: A & O 3, flat Assessment & Plan: Assessment : A RLQ pain Leukocytosis, hypokalemia (better), elevated LFTs Abnormal CT: obstructed biliary stent, enlarging soft tissue density in pancreatic head H/o [place] GERD - on PPI CRC screen - reportedly UTD at Diverticulosis S/p cholecystectomy Chronic pancreatitis w/ h/o pseudocyst/drainage, biliary and pancreatic stents in place from Fatty liver Ventral hernia containing transverse colon H/o abd fluid collection s/p drainage +tobacco +alcohol Plan: ERCP with stone/sludge removal Plan advance diet antibiotics serial labs- LFTs better PIPPA CROSS MD Jul 10, 2019 14:44
[2019-07-10 15:59] VITALS: BP 146/60
[2019-07-10 19:00] VITALS: BP 154/86
[2019-07-10 23:00] VITALS: BP 152/74
[2019-07-11] MEDS: HYDROcodone/APAP 7.5/325MG 1 TAB TABLET PO PRN ×3 (00:51→15:24)
[2019-07-11] MEDS: PIPERACILLIN/TAZOBACTAM 3.375 GM in IV NORMAL SALINE 50ML 50 ML IV SCH ×4 (00:54→17:17)
[2019-07-11] MEDS: POTASSIUM CL 40MEQ IN 0.9%NACL 1,000 ML IV SCH ×3 (00:54→19:53)
[2019-07-11 03:00] VITALS: BP 151/65
[2019-07-11] MEDS: HYDROmorphone 2 MG/ML VIAL IV PRN (03:58)
[2019-07-11 05:20] LABS: HEMATOCRIT 27.7 % (39.0-53.0); HEMOGLOBIN 9.1 g/dL (13.0-17.5); RED BLOOD COUNT 2.91 x10^6/uL (4.30-5.70); RED CELL DISTRIBUTION WIDTH 18.1 % (11.5-14.5); WHITE BLOOD COUNT 15.6 x10^3/uL (4.0-11.0)
[2019-07-11 05:26] LABS: PROTHROMBIN TIME PATIENT 12.6 SEC (11.7-14.0)
[2019-07-11 05:57] LABS: ALBUMIN 1.6 g/dL (3.4-5.0); ALBUMIN/GLOBULIN RATIO 0.4 (1.0-1.7); CALCIUM 8.1 mg/dL (8.5-10.1); CREATININE 0.8 mg/dL (0.7-1.3); GFR 99.3; POTASSIUM 3.8 mmol/L (3.5-5.1); TOTAL BILIRUBIN 3.4 mg/dL (0.2-1.0); TOTAL PROTEIN 5.9 g/dL (6.4-8.2)
[2019-07-11 07:50] VITALS: BP 168/70
[2019-07-11] MEDS: VARENICLINE 0.5 MG TABLET. PO SCH ×2 (08:15→21:23)
[2019-07-11] MEDS: NICOTINE 21MG PATCH. TD SCH (08:15)
[2019-07-11] MEDS: MULTIVITAMIN with MINERAL TABLET. PO SCH (08:15)
[2019-07-11] MEDS: oxyCODONE ER 10 MG TAB.ER.12H PO SCH ×2 (08:15→21:24)
[2019-07-11] MEDS: THIAMINE 100 MG TABLET. PO SCH (08:15)
[2019-07-11] MEDS: LACTOBACILLUS RHAMNOSUS GG 1 CAPSULE. PO SCH ×2 (08:16→21:23)
[2019-07-11] MEDS: FOLIC ACID 1 MG TABLET. PO SCH (08:16)
[2019-07-11] MEDS: PANTOPRAZOLE 40 MG TABLET.DR. PO SCH (08:16)
[2019-07-11] MEDS: CLOPIDOGREL BISULFATE 75 MG TABLET PO SCH (08:16)
[2019-07-11] MEDS: DOCUSATE SODIUM 100 MG CAPSULE. PO SCH (08:18)
[2019-07-11] MEDS: INSULIN GLARGINE SYRINGE. SQ SCH (08:45)
--- NOTE | 2019-07-11 09:29 | PDOC ---
Subjective: Subjective: Feels better. TOoerating diet and stooling. Still RLQ pain, not sure ready to go home yet. Objective: Vital Signs: Vital Signs Date Time Temp Pulse Resp B/P (MAP) Pulse Ox O2 Delivery O2 Flow Rate FiO2 07/11/19 08:26 93 Room Air 07/11/19 08:16 68 07/11/19 07:50 98.1 18 168/70 (102) 98.1 07/11/19 04:28 2.0 Labs: Laboratory Tests Test 07/10/19 11:26 07/10/19 17:04 07/10/19 20:30 07/11/19 04:10 Glucose (Fingerstick) 252 mg/dL 303 mg/dL 315 mg/dL White Blood Count 15.6 x10^3/uL Red Blood Count 2.91 x10^6/uL Hemoglobin 9.1 g/dL Hematocrit 27.7 % Mean Corpuscular Volume 95 fL Mean Corpuscular Hemoglobin 31 pg Mean Corpuscular Hemoglobin Concent 33 g/dL Red Cell Distribution Width 18.1 % Platelet Count 349 x10^3/uL Prothrombin Time 12.6 SEC Prothromb Time International Ratio 1.0 Sodium Level 132 mmol/L Potassium Level 3.8 mmol/L Chloride Level 99 mmol/L Carbon Dioxide Level 27 mmol/L Anion Gap 6 Blood Urea Nitrogen 9 mg/dL Creatinine 0.8 mg/dL Estimated GFR (Cockcroft-Gault) 99.3 BUN/Creatinine Ratio 11 Glucose Level 212 mg/dL Calcium Level 8.1 mg/dL Total Bilirubin 3.4 mg/dL Aspartate Amino Transf (AST/SGOT) 39 U/L Alanine Aminotransferase (ALT/SGPT) 92 U/L Alkaline Phosphatase 409 U/L Total Protein 5.9 g/dL Albumin 1.6 g/dL Albumin/Globulin Ratio 0.4 Test 07/11/19 07:33 Glucose (Fingerstick) 187 mg/dL Imaging: ERCP 07/07 ERCP with stone/sludge removal Pre-op dx jaundice/wall stent prior Post-op dx intact wall stent with occlusin secondary to stones/sludge s/p extraction Plan advance diet antibiotics serial labs PE: GEN: NAD - looks better, less jaundiced LUNGS: CTAB HEART: RRR ABD: soft, RLQ discomfort NEURO/PSYCH: A & O 3 A/P: RLQ pain - ongoing Occluded biliary stent s/p ERCP w/ stones/sludge extraction Leukocytosis, elevated LFTs - improving Abnormal pancreas imaging, h/o chronic pancreatitis and pseudocyst [place], DM, +tobacco +alcohol -- Labs better, ongoing pain. Will review w/ Dr. Curiel. Hemodynamically unstable?: No Is patient in severe pain?: No Is NPO status required?: No DEYA SHAFFER Jul 11, 2019 09:29
--- NOTE | 2019-07-11 10:22 | PN ---
DATE: SUBJECTIVE: The patient is sitting slightly propped up in bed, clearly in no apparent distress, continued to complain of severe pain in his right upper quadrant and right lower quadrant, made worse by movement. His appetite continues to be poor, however, his lab works are actually improving. His total bilirubin is down from 17 to 3.4. His liver enzymes are steadily improving, although they have not normalized yet. PHYSICAL EXAMINATION: GENERAL: When I examined him this morning, he continued to be pale, jaundiced, but not cyanosed. No lymphadenopathy, no thyromegaly. No jugular venous distention. No limb edema. VITAL SIGNS: Her heart rate was 66, blood pressure was 168/70, temperature was 98.1, respiratory rate was 18 and oxygen saturation was 95%. HEAD, EYES, EARS, NOSE AND THROAT: Normocephalic, atraumatic. NECK: Supple. HEART: Showed normal first and second heart sounds. No gallop, rub or murmur. CHEST: Clear to auscultation. No crepitation or rhonchi. ABDOMEN: Distended, soft with midline incisional hernia that is reducible. Has some tenderness in the right upper and right lower quadrant. No guarding or rigidity. No organomegaly. All hernial orifice intact. Bowel sounds normal. NEUROLOGIC: He was grossly intact. His intake over the last 24 hours was 750, output was 350. LABORATORY DATA: As of this morning, his serum sodium 132, potassium 3.8, chloride 99, bicarbonate 27, anion gap of 6, BUN 9, creatinine 0.8, estimated GFR was 99 mL per minute. His glucose was 112, calcium was 8.1. Total bilirubin 3.4. AST, ALT, alkaline phosphatase are elevated, but trending down. His total protein was 5.9, albumin was 1.6. His white cell count is also trending down at 15,600, hemoglobin 9, hematocrit 27, MCV 95 and platelet count 349,000. His prothrombin time and INR are within normal limit. ASSESSMENT: 1. Obstructive jaundice due to occlusion of the Wallstent with stones and sludge, status post endoscopic retrograde cholangiopancreatography and extraction. His liver enzymes are improving, although they have not normalized yet. 2. Chronic calcific pancreatitis; however, his serum lipase and amylase were normal. 3. Type 2 diabetes mellitus, reasonably controlled. 4. Hypertension. 5. Chronic obstructive pulmonary disease. 6. Chronic alcoholism. 7. Nicotine dependence. PLAN: To continue with IV antibiotic. Continue with pain management. Advance diet as tolerated. His potassium has improved from 3.3 to 3.8. AUSTIN ESPINOZA MD DR: ANAHY/niranjan JOB#: [id number] / [id number]
[2019-07-11 11:22] VITALS: BP 166/76
--- NOTE | 2019-07-11 11:50 | PDOC ---
SURGICAL PROGRESS NOTE Subjective Pt with c/o RLQ abd pain, especially with movement, otherwise doing well Vital Signs Vital Signs Date Time Temp Pulse Resp B/P (MAP) Pulse Ox O2 Delivery O2 Flow Rate FiO2 07/11/19 11:22 98.0 71 18 166/76 (106) 96 Room Air 98.0 07/11/19 04:28 2.0 I&O Intake and Output 07/11/19 07:00 Intake Total 710 ml Output Total 550 ml Balance 160 ml Intake Oral 710 ml Output Urine Total 550 ml # Voids 1 General: Alert, Oriented X3, Cooperative, mild distress Abdomen: Soft, Other (TTP RLQ) Labs Laboratory Tests Test 07/09/19 12:37 07/09/19 17:14 07/09/19 20:35 07/10/19 04:06 Glucose (Fingerstick) 269 mg/dL (70-99) 347 mg/dL (70-99) 332 mg/dL (70-99) White Blood Count 18.6 x10^3/uL (4.0-11.0) Red Blood Count 2.86 x10^6/uL (4.30-5.70) Hemoglobin 8.9 g/dL (13.0-17.5) Hematocrit 26.9 % (39.0-53.0) Mean Corpuscular Volume 94 fL (79-100) Mean Corpuscular Hemoglobin 31 pg (25-35) Mean Corpuscular Hemoglobin Concent 33 g/dL (31-37) Red Cell Distribution Width 18.4 % (11.5-14.5) Platelet Count 314 x10^3/uL (140-400) Neutrophils (%) (Auto) 58 % (31-73) Lymphocytes (%) (Auto) 29 % (24-48) Monocytes (%) (Auto) 12 % (0-9) Eosinophils (%) (Auto) 1 % (0-3) Basophils (%) (Auto) 0 % (0-3) Neutrophils # (Auto) 10.8 x10^3/uL (1.8-7.7) Lymphocytes # (Auto) 5.3 x10^3/uL (1.0-4.8) Monocytes # (Auto) 2.3 x10^3/uL (0.0-1.1) Eosinophils # (Auto) 0.2 x10^3/uL (0.0-0.7) Basophils # (Auto) 0.1 x10^3/uL (0.0-0.2) Sodium Level 136 mmol/L (136-145) Potassium Level 3.4 mmol/L (3.5-5.1) Chloride Level 102 mmol/L (98-107) Carbon Dioxide Level 23 mmol/L (21-32) Anion Gap 11 (6-14) Blood Urea Nitrogen 15 mg/dL (8-26) Creatinine 0.8 mg/dL (0.7-1.3) Estimated GFR (Cockcroft-Gault) 99.3 BUN/Creatinine Ratio 19 (6-20) Glucose Level 165 mg/dL (70-99) Calcium Level 8.5 mg/dL (8.5-10.1) Magnesium Level 1.6 mg/dL (1.8-2.4) Total Bilirubin 3.9 mg/dL (0.2-1.0) Aspartate Amino Transf (AST/SGOT) 33 U/L (15-37) Alanine Aminotransferase (ALT/SGPT) 101 U/L (16-63) Alkaline Phosphatase 447 U/L (46-116) Total Protein 5.8 g/dL (6.4-8.2) Albumin 1.5 g/dL (3.4-5.0) Albumin/Globulin Ratio 0.3 (1.0-1.7) Lipase 28 U/L (73-393) Test 07/10/19 07:31 07/10/19 11:26 07/10/19 17:04 07/10/19 20:30 Glucose (Fingerstick) 171 mg/dL (70-99) 252 mg/dL (70-99) 303 mg/dL (70-99) 315 mg/dL (70-99) Test 07/11/19 04:10 07/11/19 07:33 07/11/19 10:56 White Blood Count 15.6 x10^3/uL (4.0-11.0) Red Blood Count 2.91 x10^6/uL (4.30-5.70) Hemoglobin 9.1 g/dL (13.0-17.5) Hematocrit 27.7 % (39.0-53.0) Mean Corpuscular Volume 95 fL (79-100) Mean Corpuscular Hemoglobin 31 pg (25-35) Mean Corpuscular Hemoglobin Concent 33 g/dL (31-37) Red Cell Distribution Width 18.1 % (11.5-14.5) Platelet Count 349 x10^3/uL (140-400) Prothrombin Time 12.6 SEC (11.7-14.0) Prothromb Time International Ratio 1.0 (0.8-1.1) Sodium Level 132 mmol/L (136-145) Potassium Level 3.8 mmol/L (3.5-5.1) Chloride Level 99 mmol/L (98-107) Carbon Dioxide Level 27 mmol/L (21-32) Anion Gap 6 (6-14) Blood Urea Nitrogen 9 mg/dL (8-26) Creatinine 0.8 mg/dL (0.7-1.3) Estimated GFR (Cockcroft-Gault) 99.3 BUN/Creatinine Ratio 11 (6-20) Glucose Level 212 mg/dL (70-99) Calcium Level 8.1 mg/dL (8.5-10.1) Total Bilirubin 3.4 mg/dL (0.2-1.0) Aspartate Amino Transf (AST/SGOT) 39 U/L (15-37) Alanine Aminotransferase (ALT/SGPT) 92 U/L (16-63) Alkaline Phosphatase 409 U/L (46-116) Total Protein 5.9 g/dL (6.4-8.2) Albumin 1.6 g/dL (3.4-5.0) Albumin/Globulin Ratio 0.4 (1.0-1.7) Glucose (Fingerstick) 187 mg/dL (70-99) 200 mg/dL (70-99) Laboratory Tests Test 07/10/19 17:04 07/10/19 20:30 07/11/19 04:10 07/11/19 07:33 Glucose (Fingerstick) 303 mg/dL (70-99) 315 mg/dL (70-99) 187 mg/dL (70-99) White Blood Count 15.6 x10^3/uL (4.0-11.0) Red Blood Count 2.91 x10^6/uL (4.30-5.70) Hemoglobin 9.1 g/dL (13.0-17.5) Hematocrit 27.7 % (39.0-53.0) Mean Corpuscular Volume 95 fL (79-100) Mean Corpuscular Hemoglobin 31 pg (25-35) Mean Corpuscular Hemoglobin Concent 33 g/dL (31-37) Red Cell Distribution Width 18.1 % (11.5-14.5) Platelet Count 349 x10^3/uL (140-400) Prothrombin Time 12.6 SEC (11.7-14.0) Prothromb Time International Ratio 1.0 (0.8-1.1) Sodium Level 132 mmol/L (136-145) Potassium Level 3.8 mmol/L (3.5-5.1) Chloride Level 99 mmol/L (98-107) Carbon Dioxide Level 27 mmol/L (21-32) Anion Gap 6 (6-14) Blood Urea Nitrogen 9 mg/dL (8-26) Creatinine 0.8 mg/dL (0.7-1.3) Estimated GFR (Cockcroft-Gault) 99.3 BUN/Creatinine Ratio 11 (6-20) Glucose Level 212 mg/dL (70-99) Calcium Level 8.1 mg/dL (8.5-10.1) Total Bilirubin 3.4 mg/dL (0.2-1.0) Aspartate Amino Transf (AST/SGOT) 39 U/L (15-37) Alanine Aminotransferase (ALT/SGPT) 92 U/L (16-63) Alkaline Phosphatase 409 U/L (46-116) Total Protein 5.9 g/dL (6.4-8.2) Albumin 1.6 g/dL (3.4-5.0) Albumin/Globulin Ratio 0.4 (1.0-1.7) Test 07/11/19 10:56 Glucose (Fingerstick) 200 mg/dL (70-99) Problem List obstructing jaundice appears improved will add PRN percocet to pain regimen. Agree with plan and w/u per GI. No surgical plans. May best be served by EUS. JODIE RUIZ MD Jul 11, 2019 11:50
[2019-07-11] MEDS: oxyCODONE/APAP 7.5/325 1 TAB TABLET PO PRN (13:59)
--- NOTE | 2019-07-11 13:59 | NUR ---
SW following. Discussed with RN, pt from home, regular diet, room air, IV zosyn. No surgical plans per chart. RN advised no SW needs at this time. SW will continue to follow.
[2019-07-11 15:06] VITALS: BP 157/64
[2019-07-11 19:00] VITALS: BP 160/81
[2019-07-11 23:00] VITALS: BP 147/80
[2019-07-12] MEDS: PIPERACILLIN/TAZOBACTAM 3.375 GM in IV NORMAL SALINE 50ML 50 ML IV SCH ×4 (00:02→18:30)
[2019-07-12] MEDS: HYDROmorphone 2 MG/ML VIAL IV PRN ×4 (00:48→16:46)
[2019-07-12 03:00] VITALS: BP 157/80
[2019-07-12] MEDS: HYDROcodone/APAP 7.5/325MG 1 TAB TABLET PO PRN ×2 (03:09→14:53)
[2019-07-12] MEDS: POTASSIUM CL 40MEQ IN 0.9%NACL 1,000 ML IV SCH ×2 (05:45→15:15)
[2019-07-12 07:44] VITALS: BP 184/76
[2019-07-12] MEDS: CLOPIDOGREL BISULFATE 75 MG TABLET PO SCH (08:32)
[2019-07-12] MEDS: NICOTINE 21MG PATCH. TD SCH (08:32)
[2019-07-12] MEDS: THIAMINE 100 MG TABLET. PO SCH (08:33)
[2019-07-12] MEDS: oxyCODONE ER 10 MG TAB.ER.12H PO SCH ×2 (08:33→21:28)
[2019-07-12] MEDS: VARENICLINE 0.5 MG TABLET. PO SCH ×2 (08:34→22:10)
[2019-07-12] MEDS: PANTOPRAZOLE 40 MG TABLET.DR. PO SCH (08:34)
[2019-07-12] MEDS: FOLIC ACID 1 MG TABLET. PO SCH (08:34)
[2019-07-12] MEDS: DOCUSATE SODIUM 100 MG CAPSULE. PO SCH (08:34)
[2019-07-12] MEDS: MULTIVITAMIN with MINERAL TABLET. PO SCH (08:34)
[2019-07-12] MEDS: LACTOBACILLUS RHAMNOSUS GG 1 CAPSULE. PO SCH ×2 (08:34→21:29)
[2019-07-12] MEDS: INSULIN GLARGINE SYRINGE. SQ SCH (08:41)
--- NOTE | 2019-07-12 09:55 | PDOC ---
Subjective: Subjective: RLQ still painful - hurts w/ movement. No pain w/ eating. Hasn't stooled in a day or two. Objective: Objective: D/w Dr. Alejandro re: ongoing pain. Reviewed surgery note - ?EUS later on Vital Signs: Vital Signs Date Time Temp Pulse Resp B/P (MAP) Pulse Ox O2 Delivery O2 Flow Rate FiO2 07/12/19 08:34 69 184/76 07/12/19 08:33 Room Air 07/12/19 07:44 98.1 18 96 98.1 Labs: Laboratory Tests Test 07/11/19 10:56 07/11/19 16:45 07/12/19 07:38 Glucose (Fingerstick) 200 mg/dL 181 mg/dL 150 mg/dL PE: GEN: NAD LUNGS: CTAB HEART: RRR ABD: no epigastric or upper abd tenderness, ventral hernia non-tender, right pelvic/hip/inguinal discomfort NEURO/PSYCH: A & O 3, drowsy A/P: RLQ pain - ongoing, worse w/ movement Occluded biliary stent s/p ERCP w/ stones/sludge extraction - WBC and LFTs improved Abnormal pancreas imaging, h/o chronic pancreatitis and pseudocyst [place] - says recent 'scopes at [facility] +tobacco, +alcohol -- Note interval CT ordered, await this. Hemodynamically unstable?: No Is patient in severe pain?: No Is NPO status required?: No DEYA SHAFFER Jul 12, 2019 09:55
[2019-07-12] MEDS ORDERED: BISACODYL 5 MG TABLET.DR. PO PRN (10:00)
[2019-07-12] MEDS ORDERED: POLYETHYLENE GLYCOL 3350 17 GM PACKET. PO PRN (10:00)
[2019-07-12 10:13] LABS: HEMATOCRIT 28.4 % (39.0-53.0); HEMOGLOBIN 9.5 g/dL (13.0-17.5); RED BLOOD COUNT 3.03 x10^6/uL (4.30-5.70); RED CELL DISTRIBUTION WIDTH 17.2 % (11.5-14.5); WHITE BLOOD COUNT 14.3 x10^3/uL (4.0-11.0)
--- NOTE | 2019-07-12 10:15 | PN ---
DATE: SUBJECTIVE: The patient is resting, propped up in bed, actually was snoring when I came into the room, but when I wake him up, he continued to complain of severe pain in his right lower quadrant despite being on hydromorphone, oxycodone and OxyContin 10 mg twice a day. I reviewed the CT scan that was done at the [facility] and there was nothing really mentioned about any finding in his right lower quadrant. PHYSICAL EXAMINATION: GENERAL: However, when I examined him this morning, he was pale, jaundiced, no cyanosis, lymphadenopathy or thyromegaly. No jugular venous distention. No lower limb edema. VITAL SIGNS: His heart rate was 69, blood pressure was 184/76, temperature was 98.1, respiratory rate was 18 and oxygen saturation was 96%. HEAD, EYES, EARS, NOSE AND THROAT: Showed normocephalic, atraumatic. NECK: Supple. HEART: Showed normal first and second heart sounds. No gallop or murmur. CHEST: Clear to auscultation. No crepitation or rhonchi. ABDOMEN: Distended, soft. He has a midline incisional hernia that is easily reducible. He is markedly tender in his right lower quadrant, there is no guarding, however and no rigidity and bowel sounds were normal. NEUROLOGIC: He was actually very sleepy when I saw him initially, snoring, but all his cranial nerves are intact. He moves extremities without difficulty. His intake was 710, output was 550. LABORATORY DATA: Today's labs are still pending at the time of this dictation. As of yesterday, his white cell count came down from 28,000 to 15,000. His total bilirubin came down from 17 to 3.4 and his liver enzymes, although elevated are trending down. ASSESSMENT: 1. Obstructive jaundice due to occlusion of the Wallstent with stones and sludge, status post endoscopic retrograde cholangiopancreatography and extraction. His liver enzymes are improving, although they have not normalized yet. 2. Chronic calcific pancreatitis; however, his serum lipase and amylase were normal. 3. Type 2 diabetes mellitus, reasonably controlled. 4. Hypertension. 5. Chronic obstructive pulmonary disease. 6. Chronic alcoholism. 7. Nicotine dependence. 8. The patient continues to complain of severe pain in his right lower quadrant. I did review his previous CT scan done at [facility] and there was nothing mentioned about any abnormality in the right lower quadrant. He was seen by Dr. Cole and unfortunately he continued to have pain, and therefore, my plan is to repeat his labs and also repeat his CT scan of the abdomen and pelvis and decide on further management according to finding. AUSTIN ESPINOZA MD DR: ANAHY/niranjan JOB#: [id number] / [id number]
[2019-07-12 10:22] LABS: CALCIUM 8.8 mg/dL (8.5-10.1); CREATININE 0.7 mg/dL (0.7-1.3); GFR 115.8; POTASSIUM 3.7 mmol/L (3.5-5.1)
[2019-07-12 10:27] LABS: ALBUMIN 1.8 g/dL (3.4-5.0); ALBUMIN/GLOBULIN RATIO 0.4 (1.0-1.7); TOTAL BILIRUBIN 3.1 mg/dL (0.2-1.0); TOTAL PROTEIN 6.4 g/dL (6.4-8.2)
[2019-07-12] MEDS ORDERED: IOHEXOL 300 MG/ML 100ML VIAL. IV ONE (10:30)
--- NOTE | 2019-07-12 10:32 | NUR ---
SW following. Discussed with RN and Dr. Alejandro, pt from home, repeat labs and CT today. Possible discharge today or tomorrow (07/13/2019) after repeat testing. SW will continue to follow.
--- NOTE | 2019-07-12 11:27 | RAD ---
CT abdomen and pelvis with contrast History: Severe right lower quadrant pain Technique: After the administration of intravenous contrast, CT imaging was performed of the abdomen and pelvis. Multiplanar images are reviewed. Exposure: One or more of the following individualized dose reduction techniques were utilized for this examination: 1. Automated exposure control 2. Adjustment of the mA and/or kV according to patient size 3. Use of iterative reconstruction technique. Comparison: February 04, 2019 Findings: There are some patchy areas of nonspecific groundglass density of the visualized bilateral lung bases at the periphery of the lower lobes bilaterally and also the right middle lobe posteriorly. There is no significant pleural fluid. There is coronary calcification. There is new pneumobilia, gas filling the extrahepatic common bile duct images now more distended about 1.2 cm versus previously estimated about 0.6 cm. There is again stent in the distal common bile duct extending near ampulla, also a small caliber stent in the proximal pancreatic duct. There is some nonspecific density in the lumen of the biliary stent. There is again atrophy of the pancreas and variable visualization of the pancreatic duct also associated with multiple calcifications greater distally. There is persistent focus of now more heterogeneous density of the tail of the pancreas, overall size smaller and margins less well-defined. This in greatest dimension is estimated about 2.8 cm transverse by about 1.9 cm AP versus previously 4.6 cm transverse by 3.5 cm AP. Previously this had more cystic type features, internal density measurements now about 56 Hounsfield units. There is increased mild complex appearing fluid about the hepatic margin greater inferiorly with associated subtle enhancement at the peripheral margin. As best seen on image 47 series 2 and coronal image 14, there is some extent of complex appearing fluid inferior to the liver and adjacent to segments of the colon, internal density measurements about 23 Hounsfield units. This pocket of fluid measures about 4 cm transverse by 2.2 cm AP by about 4.4 cm cc.There is new pocket of fluid posteriorly in the pelvis about 7.2 cm transverse by 4.1 m AP by about 4.6 CM CC with internal density measurements about 35-40 Hounsfield units, mild enhancement at the periphery. There again has been cholecystectomy. Both kidneys enhance, no hydronephrosis. There is new ventral hernia in the superior abdomen with neck upon the order of 4.4 cm transverse, hernia sac about 9.6 cm transverse containing fat and also partial anterior wall of the mid transverse colon. Urinary bladder is distended. Contrast fills normal caliber appendix. There is some variable retained stool in the colon. Small bowel is overall not significantly dilated although there is suggestion of degree of variable mild long segment wall thickening such as in the left abdomen. There is colonic diverticulosis greatest of the sigmoid colon. There is some artifact in the pelvis created by right total hip arthroplasty. There is grade 1 anterior spondylolisthesis at L4-5 at which there is facet degenerative change. There is fairly advanced degenerative disc disease at L5-S1, to a lesser degree at L4-5. There is degree of lateral recess stenosis bilaterally at L4-5. There is also degree of bilateral L4-5 and to lesser degree L5-S1 neural foramina compromise. There is scattered plaque of the abdominal aorta and branches. There is fullness of the left adrenal gland as seen previously. Impression: 1. There is new pocket of complex appearing fluid or blood products in the posterior pelvis and also minimally of the liver greater inferiorly as described of uncertain sterility although mild enhancement at the periphery concerning for peritonitis/infected fluid collections. 2. There is now more complex appearing density at the tail of the pancreas although smaller size of previously seen cystic lesion. There is now pneumobilia, increased caliber of the common bile duct at which there is biliary stent distally, also small caliber stent in the proximal pancreatic duct. 3. There is now ventral hernia in the superior abdomen, contains partial anterior wall of the mid transverse colon. 4. There are some new patchy foci of groundglass density at the visualized lung bases bilaterally, could be due to infectious or inflammatory etiologies including consideration of atypical viral infectious etiologies. 5. There is distention of the urinary bladder. 6. There is coronary calcification Critical results were discussed with patient's nurse Evelin at 07/12/2019 11:21 AM, to inform doctor of findings. Electronically signed by: Regan Pearce MD (07/12/2019 11:24 AM) [id number]
--- NOTE | 2019-07-12 11:30 | NUR ---
Dr. Alejandro notified of CT abd results from Dr. Gonzalez, no telephone orders received at this time. Dr. Alejandro stated he would look at CT and call back.
[2019-07-12 11:38] VITALS: BP 186/81
[2019-07-12] MEDS: POLYETHYLENE GLYCOL 3350 17 GM PACKET. PO SCH (11:49)
--- NOTE | 2019-07-12 13:57 | NUR ---
MARGIE Stuart notified of CT results per Dr Alejandro's request, she stated she would let know. Dr. Cole paged re: CT results.
--- NOTE | 2019-07-12 14:04 | NUR ---
Dr. Cole notified of CT results, no telephone orders received.
[2019-07-12 15:00] VITALS: BP 161/82
--- NOTE | 2019-07-12 16:15 | PDOC ---
SURGICAL PROGRESS NOTE Subjective Pt with c/o RLQ, but otherwise doing well Vital Signs Vital Signs Date Time Temp Pulse Resp B/P (MAP) Pulse Ox O2 Delivery O2 Flow Rate FiO2 07/12/19 14:53 Room Air 07/12/19 11:38 97.9 75 18 186/81 (116) 96 97.9 I&O l Intake and Output 07/12/19 07:00 Intake Total 1320 ml Balance 1320 ml Intake Oral 1320 ml # Voids 3 General: Alert, Oriented X3, Cooperative, No acute distress Abdomen: Soft, Other (mild TTP RLQ) Labs Laboratory Tests Test 07/10/19 17:04 07/10/19 20:30 07/11/19 04:10 07/11/19 07:33 Glucose (Fingerstick) 303 mg/dL (70-99) 315 mg/dL (70-99) 187 mg/dL (70-99) White Blood Count 15.6 x10^3/uL (4.0-11.0) Red Blood Count 2.91 x10^6/uL (4.30-5.70) Hemoglobin 9.1 g/dL (13.0-17.5) Hematocrit 27.7 % (39.0-53.0) Mean Corpuscular Volume 95 fL (79-100) Mean Corpuscular Hemoglobin 31 pg (25-35) Mean Corpuscular Hemoglobin Concent 33 g/dL (31-37) Red Cell Distribution Width 18.1 % (11.5-14.5) Platelet Count 349 x10^3/uL (140-400) Prothrombin Time 12.6 SEC (11.7-14.0) Prothromb Time International Ratio 1.0 (0.8-1.1) Sodium Level 132 mmol/L (136-145) Potassium Level 3.8 mmol/L (3.5-5.1) Chloride Level 99 mmol/L (98-107) Carbon Dioxide Level 27 mmol/L (21-32) Anion Gap 6 (6-14) Blood Urea Nitrogen 9 mg/dL (8-26) Creatinine 0.8 mg/dL (0.7-1.3) Estimated GFR (Cockcroft-Gault) 99.3 BUN/Creatinine Ratio 11 (6-20) Glucose Level 212 mg/dL (70-99) Calcium Level 8.1 mg/dL (8.5-10.1) Total Bilirubin 3.4 mg/dL (0.2-1.0) Aspartate Amino Transf (AST/SGOT) 39 U/L (15-37) Alanine Aminotransferase (ALT/SGPT) 92 U/L (16-63) Alkaline Phosphatase 409 U/L (46-116) Total Protein 5.9 g/dL (6.4-8.2) Albumin 1.6 g/dL (3.4-5.0) Albumin/Globulin Ratio 0.4 (1.0-1.7) Test 07/11/19 10:56 07/11/19 16:45 07/12/19 07:38 07/12/19 10:05 Glucose (Fingerstick) 200 mg/dL (70-99) 181 mg/dL (70-99) 150 mg/dL (70-99) White Blood Count 14.3 x10^3/uL (4.0-11.0) Red Blood Count 3.03 x10^6/uL (4.30-5.70) Hemoglobin 9.5 g/dL (13.0-17.5) Hematocrit 28.4 % (39.0-53.0) Mean Corpuscular Volume 94 fL (79-100) Mean Corpuscular Hemoglobin 31 pg (25-35) Mean Corpuscular Hemoglobin Concent 34 g/dL (31-37) Red Cell Distribution Width 17.2 % (11.5-14.5) Platelet Count 389 x10^3/uL (140-400) Sodium Level 130 mmol/L (136-145) Potassium Level 3.7 mmol/L (3.5-5.1) Chloride Level 95 mmol/L (98-107) Carbon Dioxide Level 27 mmol/L (21-32) Anion Gap 8 (6-14) Blood Urea Nitrogen 6 mg/dL (8-26) Creatinine 0.7 mg/dL (0.7-1.3) Estimated GFR (Cockcroft-Gault) 115.8 BUN/Creatinine Ratio 9 (6-20) Glucose Level 239 mg/dL (70-99) Calcium Level 8.8 mg/dL (8.5-10.1) Total Bilirubin 3.1 mg/dL (0.2-1.0) Aspartate Amino Transf (AST/SGOT) 34 U/L (15-37) Alanine Aminotransferase (ALT/SGPT) 77 U/L (16-63) Alkaline Phosphatase 358 U/L (46-116) Total Protein 6.4 g/dL (6.4-8.2) Albumin 1.8 g/dL (3.4-5.0) Albumin/Globulin Ratio 0.4 (1.0-1.7) Test 07/12/19 11:20 Glucose (Fingerstick) 203 mg/dL (70-99) Laboratory Tests Test 07/11/19 16:45 07/12/19 07:38 07/12/19 10:05 07/12/19 11:20 Glucose (Fingerstick) 181 mg/dL (70-99) 150 mg/dL (70-99) 203 mg/dL (70-99) White Blood Count 14.3 x10^3/uL (4.0-11.0) Red Blood Count 3.03 x10^6/uL (4.30-5.70) Hemoglobin 9.5 g/dL (13.0-17.5) Hematocrit 28.4 % (39.0-53.0) Mean Corpuscular Volume 94 fL (79-100) Mean Corpuscular Hemoglobin 31 pg (25-35) Mean Corpuscular Hemoglobin Concent 34 g/dL (31-37) Red Cell Distribution Width 17.2 % (11.5-14.5) Platelet Count 389 x10^3/uL (140-400) Sodium Level 130 mmol/L (136-145) Potassium Level 3.7 mmol/L (3.5-5.1) Chloride Level 95 mmol/L (98-107) Carbon Dioxide Level 27 mmol/L (21-32) Anion Gap 8 (6-14) Blood Urea Nitrogen 6 mg/dL (8-26) Creatinine 0.7 mg/dL (0.7-1.3) Estimated GFR (Cockcroft-Gault) 115.8 BUN/Creatinine Ratio 9 (6-20) Glucose Level 239 mg/dL (70-99) Calcium Level 8.8 mg/dL (8.5-10.1) Total Bilirubin 3.1 mg/dL (0.2-1.0) Aspartate Amino Transf (AST/SGOT) 34 U/L (15-37) Alanine Aminotransferase (ALT/SGPT) 77 U/L (16-63) Alkaline Phosphatase 358 U/L (46-116) Total Protein 6.4 g/dL (6.4-8.2) Albumin 1.8 g/dL (3.4-5.0) Albumin/Globulin Ratio 0.4 (1.0-1.7) I have reviewed the following CT with hemorrhagic fluid RLQ Problem List obstructive jaundice would favor conservative management of hemoperitoneum, given comorbidities and risk of infection. Favor against percutaneous drainage JODIE RUIZ MD Jul 12, 2019 16:14
[2019-07-12] MEDS: oxyCODONE/APAP 7.5/325 1 TAB TABLET PO PRN ×2 (18:47→23:29)
[2019-07-12 19:00] VITALS: BP 159/77
[2019-07-12 23:00] VITALS: BP 158/71
[2019-07-13] MEDS: PIPERACILLIN/TAZOBACTAM 3.375 GM in IV NORMAL SALINE 50ML 50 ML IV SCH ×2 (00:16→05:34)
[2019-07-13] MEDS: HYDROcodone/APAP 7.5/325MG 1 TAB TABLET PO PRN ×3 (01:47→14:16)
[2019-07-13] MEDS: POTASSIUM CL 40MEQ IN 0.9%NACL 1,000 ML IV SCH (02:05)
[2019-07-13] MEDS: HYDROmorphone 2 MG/ML VIAL IV PRN (03:03)
[2019-07-13 03:15] VITALS: BP 162/70
[2019-07-13 03:47] VITALS: BP 142/64
[2019-07-13 05:00] LABS: HEMATOCRIT 28.2 % (39.0-53.0); HEMOGLOBIN 9.5 g/dL (13.0-17.5); RED BLOOD COUNT 3.01 x10^6/uL (4.30-5.70); RED CELL DISTRIBUTION WIDTH 17.6 % (11.5-14.5); WHITE BLOOD COUNT 13.6 x10^3/uL (4.0-11.0)
[2019-07-13 05:22] LABS: ALBUMIN 1.9 g/dL (3.4-5.0); ALBUMIN/GLOBULIN RATIO 0.4 (1.0-1.7); CALCIUM 9.1 mg/dL (8.5-10.1); CREATININE 0.9 mg/dL (0.7-1.3); GFR 86.7; TOTAL BILIRUBIN 2.9 mg/dL (0.2-1.0); TOTAL PROTEIN 6.9 g/dL (6.4-8.2)
[2019-07-13 07:00] VITALS: BP 163/80
[2019-07-13] MEDS: NICOTINE 21MG PATCH. TD SCH (08:07)
[2019-07-13] MEDS: VARENICLINE 0.5 MG TABLET. PO SCH (08:07)
[2019-07-13] MEDS: DOCUSATE SODIUM 100 MG CAPSULE. PO SCH (08:08)
[2019-07-13] MEDS: POLYETHYLENE GLYCOL 3350 17 GM PACKET. PO SCH (08:08)
[2019-07-13] MEDS: THIAMINE 100 MG TABLET. PO SCH (08:08)
[2019-07-13] MEDS: MULTIVITAMIN with MINERAL TABLET. PO SCH (08:08)
[2019-07-13] MEDS: PANTOPRAZOLE 40 MG TABLET.DR. PO SCH (08:09)
[2019-07-13] MEDS: LACTOBACILLUS RHAMNOSUS GG 1 CAPSULE. PO SCH (08:09)
[2019-07-13] MEDS: CLOPIDOGREL BISULFATE 75 MG TABLET PO SCH (08:09)
[2019-07-13] MEDS: FOLIC ACID 1 MG TABLET. PO SCH (08:09)
[2019-07-13] MEDS: oxyCODONE ER 10 MG TAB.ER.12H PO SCH (08:10)
[2019-07-13] MEDS: INSULIN GLARGINE SYRINGE. SQ SCH (08:16)
--- NOTE | 2019-07-13 09:59 | NUR ---
IP: Pt is COVID negative.
--- NOTE | 2019-07-13 10:15 | NUR ---
per Dr. Ann, pt does not need repeat covid swab.
--- NOTE | 2019-07-13 10:43 | PDOC ---
Subjective: Subjective: Doing okay, eating w/o issue, still has RLQ pain. Objective: Objective: D/w nurse - asks for pain meds. Vital Signs: Vital Signs Date Time Temp Pulse Resp B/P (MAP) Pulse Ox O2 Delivery O2 Flow Rate FiO2 07/13/19 08:08 64 163/80 07/13/19 08:00 Room Air 07/13/19 07:00 97.8 18 97 97.8 07/12/19 18:47 2.0 Labs: Laboratory Tests Test 07/12/19 11:20 07/13/19 03:40 07/13/19 04:00 07/13/19 08:01 Glucose (Fingerstick) 203 mg/dL 165 mg/dL White Blood Count 13.6 x10^3/uL Red Blood Count 3.01 x10^6/uL Hemoglobin 9.5 g/dL Hematocrit 28.2 % Mean Corpuscular Volume 94 fL Mean Corpuscular Hemoglobin 32 pg Mean Corpuscular Hemoglobin Concent 34 g/dL Red Cell Distribution Width 17.6 % Platelet Count 419 x10^3/uL Sodium Level 132 mmol/L Potassium Level 4.0 mmol/L Chloride Level 96 mmol/L Carbon Dioxide Level 28 mmol/L Anion Gap 8 Blood Urea Nitrogen 8 mg/dL Creatinine 0.9 mg/dL Estimated GFR (Cockcroft-Gault) 86.7 BUN/Creatinine Ratio 9 Glucose Level 156 mg/dL Calcium Level 9.1 mg/dL Total Bilirubin 2.9 mg/dL Aspartate Amino Transf (AST/SGOT) 31 U/L Alanine Aminotransferase (ALT/SGPT) 69 U/L Alkaline Phosphatase 322 U/L Total Protein 6.9 g/dL Albumin 1.9 g/dL Albumin/Globulin Ratio 0.4 PE: GEN: NAD, was asleep LUNGS: CTAB HEART: RRR ABD: soft, RLQ discomfort NEURO/PSYCH: A & O 3 A/P: RLQ pain - stable Abnormal CT on 07/11 - new fluid collection - conservative management per surgery Occluded biliary stent s/p ERCP w/ stones/sludge extraction - WBC and LFTs improving H/o chronic pancreatitis and pseudocyst, h/o GERD [place] - says recent 'scopes at [facility] -- Stable GI-hercules. After I saw, note negative for COVID-19. Hemodynamically unstable?: No Is patient in severe pain?: No Is NPO status required?: No DEYA SHAFFER Jul 13, 2019 10:43
--- NOTE | 2019-07-13 10:58 | PDOC ---
SURGICAL PROGRESS NOTE Subjective Pt with c/o RLQ pain, stable Vital Signs Vital Signs Date Time Temp Pulse Resp B/P (MAP) Pulse Ox O2 Delivery O2 Flow Rate FiO2 07/13/19 08:08 64 163/80 07/13/19 08:00 Room Air 07/13/19 07:00 97.8 18 97 97.8 07/12/19 18:47 2.0 I&O Intake and Output 07/13/19 07:00 Intake Total 1690 ml Output Total 1625 ml Balance 65 ml Intake Oral 1690 ml Output Urine Total 1625 ml General: Alert, Oriented X3, Cooperative, No acute distress Abdomen: Soft, Other (mild TTP) Labs Laboratory Tests Test 07/11/19 16:45 07/12/19 07:38 07/12/19 10:05 07/12/19 11:20 Glucose (Fingerstick) 181 mg/dL (70-99) 150 mg/dL (70-99) 203 mg/dL (70-99) White Blood Count 14.3 x10^3/uL (4.0-11.0) Red Blood Count 3.03 x10^6/uL (4.30-5.70) Hemoglobin 9.5 g/dL (13.0-17.5) Hematocrit 28.4 % (39.0-53.0) Mean Corpuscular Volume 94 fL (79-100) Mean Corpuscular Hemoglobin 31 pg (25-35) Mean Corpuscular Hemoglobin Concent 34 g/dL (31-37) Red Cell Distribution Width 17.2 % (11.5-14.5) Platelet Count 389 x10^3/uL (140-400) Sodium Level 130 mmol/L (136-145) Potassium Level 3.7 mmol/L (3.5-5.1) Chloride Level 95 mmol/L (98-107) Carbon Dioxide Level 27 mmol/L (21-32) Anion Gap 8 (6-14) Blood Urea Nitrogen 6 mg/dL (8-26) Creatinine 0.7 mg/dL (0.7-1.3) Estimated GFR (Cockcroft-Gault) 115.8 BUN/Creatinine Ratio 9 (6-20) Glucose Level 239 mg/dL (70-99) Calcium Level 8.8 mg/dL (8.5-10.1) Total Bilirubin 3.1 mg/dL (0.2-1.0) Aspartate Amino Transf (AST/SGOT) 34 U/L (15-37) Alanine Aminotransferase (ALT/SGPT) 77 U/L (16-63) Alkaline Phosphatase 358 U/L (46-116) Total Protein 6.4 g/dL (6.4-8.2) Albumin 1.8 g/dL (3.4-5.0) Albumin/Globulin Ratio 0.4 (1.0-1.7) Test 07/13/19 03:40 07/13/19 04:00 07/13/19 08:01 White Blood Count 13.6 x10^3/uL (4.0-11.0) Red Blood Count 3.01 x10^6/uL (4.30-5.70) Hemoglobin 9.5 g/dL (13.0-17.5) Hematocrit 28.2 % (39.0-53.0) Mean Corpuscular Volume 94 fL (79-100) Mean Corpuscular Hemoglobin 32 pg (25-35) Mean Corpuscular Hemoglobin Concent 34 g/dL (31-37) Red Cell Distribution Width 17.6 % (11.5-14.5) Platelet Count 419 x10^3/uL (140-400) Sodium Level 132 mmol/L (136-145) Potassium Level 4.0 mmol/L (3.5-5.1) Chloride Level 96 mmol/L (98-107) Carbon Dioxide Level 28 mmol/L (21-32) Anion Gap 8 (6-14) Blood Urea Nitrogen 8 mg/dL (8-26) Creatinine 0.9 mg/dL (0.7-1.3) Estimated GFR (Cockcroft-Gault) 86.7 BUN/Creatinine Ratio 9 (6-20) Glucose Level 156 mg/dL (70-99) Calcium Level 9.1 mg/dL (8.5-10.1) Total Bilirubin 2.9 mg/dL (0.2-1.0) Aspartate Amino Transf (AST/SGOT) 31 U/L (15-37) Alanine Aminotransferase (ALT/SGPT) 69 U/L (16-63) Alkaline Phosphatase 322 U/L (46-116) Total Protein 6.9 g/dL (6.4-8.2) Albumin 1.9 g/dL (3.4-5.0) Albumin/Globulin Ratio 0.4 (1.0-1.7) Glucose (Fingerstick) 165 mg/dL (70-99) Laboratory Tests Test 07/12/19 11:20 07/13/19 03:40 07/13/19 04:00 07/13/19 08:01 Glucose (Fingerstick) 203 mg/dL (70-99) 165 mg/dL (70-99) White Blood Count 13.6 x10^3/uL (4.0-11.0) Red Blood Count 3.01 x10^6/uL (4.30-5.70) Hemoglobin 9.5 g/dL (13.0-17.5) Hematocrit 28.2 % (39.0-53.0) Mean Corpuscular Volume 94 fL (79-100) Mean Corpuscular Hemoglobin 32 pg (25-35) Mean Corpuscular Hemoglobin Concent 34 g/dL (31-37) Red Cell Distribution Width 17.6 % (11.5-14.5) Platelet Count 419 x10^3/uL (140-400) Sodium Level 132 mmol/L (136-145) Potassium Level 4.0 mmol/L (3.5-5.1) Chloride Level 96 mmol/L (98-107) Carbon Dioxide Level 28 mmol/L (21-32) Anion Gap 8 (6-14) Blood Urea Nitrogen 8 mg/dL (8-26) Creatinine 0.9 mg/dL (0.7-1.3) Estimated GFR (Cockcroft-Gault) 86.7 BUN/Creatinine Ratio 9 (6-20) Glucose Level 156 mg/dL (70-99) Calcium Level 9.1 mg/dL (8.5-10.1) Total Bilirubin 2.9 mg/dL (0.2-1.0) Aspartate Amino Transf (AST/SGOT) 31 U/L (15-37) Alanine Aminotransferase (ALT/SGPT) 69 U/L (16-63) Alkaline Phosphatase 322 U/L (46-116) Total Protein 6.9 g/dL (6.4-8.2) Albumin 1.9 g/dL (3.4-5.0) Albumin/Globulin Ratio 0.4 (1.0-1.7) Problem List obstructing jaundice, improved d/w primary. OK to work on d/c Consider EUS JODIE RUIZ MD Jul 13, 2019 10:58
[2019-07-13 11:00] VITALS: BP 148/67
[2019-07-13] MEDS: oxyCODONE/APAP 7.5/325 1 TAB TABLET PO PRN (11:30)
[2019-07-13] MEDS ORDERED: AMOX1TAB61 PO (13:18)
--- NOTE | 2019-07-13 13:22 | NUR ---
SS following up with discharge planning. SS discussed with pt RN and physician. Pt COVID19 negative. Pt will discharge today with home healthcare. SS contacted pt via phone, , and discussed home healthcare. Pt agreeable to referral and was agreeable to [facility], ; fax [phone]. Referral phoned and faxed to [facility]. Pt's RN notified.
--- NOTE | 2019-07-13 13:29 | SNU/HH DC ---
DISCHARGE WITH HOME HEALTH DISCHARGE INFORMATION: Discharge Date: Jul 13, 2019 Final Diagnosis: OBSTRUCTIVE JAUNDICE Chronic pancreatitis Condition on Discharge: Stable CODE STATUS: Code Status: Full HOME HEALTH: Face to Face: I certify this patient is under my care and that I, or a nurse practitioner or physician's nursing assistants teacher working with me, had a face to face encounter that meets the physician face to face encounter requirements with this patient on 07/13/19 Medical Complications: Other Mcfp For: Admin/Educate Injections RN For Eval/Treatment: Yes Physical Therapy For: Evalulation/Treatment Occupational Therapy For: Evaluation/Treatment Pt Meets Homebound Status: Unsteady balance w/ amb, POST DISCHARGE ORDERS: Activity Instructions for Disc: Activity as tolerated Bathing Instructions: Shower-keep dressing dry DIET AFTER DISCHARGE: ADA Wound/Incision Care: Reinforce dressing PRN CHECKS AFTER DISCHARGE: Checks after discharge: Check blood sugar, ac/hs TREATMENT/EQUIPMENT ORDERS: Adaptive Equipment Issued: None CERTIFICATION STATEMENT: Certification Statement: Certification Statement: Based on the above finding, I certify that this patient is confined to the home and needs intermittent intermediate care, physical therapy and/or speech therapy, or continues to need occupational therapy.~ This patient is under my care, and I have initiated the establishment of the plan of care.~ This patient will be followed by myself or a community physician who will periodically review the plan of care. Home Meds Reported Medications Multivitamin (ONE-A-DAY ESSENTIAL) 1 Each Tablet, 1 TAB PO DAILY for supplement for 30 Days, #30 TAB 0 Refills 01/29/19 Diltiazem HCl (Diltiazem 24Hr Cd) 240 Mg Cap.er.24h, 1 CAP PO DAILY for hyperten judi for 30 Days, #30 CAP 0 Refills 01/29/19 Varenicline Tartrate (CHANTIX) 1 Mg Tablet, 1 MG PO BID for smoking cessation, TAB 01/29/19 Insulin Glargine,Hum.rec.anlog (LANTUS SOLOSTAR) 100 Unit/1 Ml Insuln.pen, 20 UNIT SQ DAILY for diabetes, #15 ML 5 Refills 09/15/18 Aspirin (ASPIR-LOW) 81 Mg Tablet.dr, 1 TAB PO DAILY for blood thinner, #30 TAB 3 Refills 09/15/18 Esomeprazole Magnesium (NEXIUM CAPSULE) 40 Mg Capsule.dr, 1 CAP PO DAILY for gerd, #30 CAP 5 Refills 09/15/18 Clopidogrel Bisulfate (CLOPIDOGREL) 75 Mg Tablet, 1 TAB PO DAILY for blood thinner, #90 TAB 1 Refill 09/15/18 Meloxicam (MELOXICAM) 15 Mg Tablet, 1 TAB PO DAILY for muscle relaxer, #30 TAB 2 Refills 09/15/18 AUSTIN ESPINOZA MD Jul 13, 2019 13:29
--- NOTE | 2019-07-13 14:48 | NUR ---
pt discharged home with . meds and follow up reviewed. scripts provided. IV X2 removed, cath intact. pt given information about substance abuse as well. pt stable upon dc. neighbor here to p/u.
--- NOTE | 2019-07-13 15:01 | DS ---
DATE OF DISCHARGE: HOSPITAL COURSE: The patient is a 58-year-old male patient who was admitted originally as he presented with pain in his right upper and right lower quadrant. He is known to have alcoholic pancreatitis and had been drinking alcohol in March and April up until 05/31/2019. He stopped drinking a few days before arrival to the emergency room. He started drinking again and developed severe pain and presented to the emergency room complaining of pain and was found to be markedly jaundiced, with direct bilirubin was up to 14 mg. He also is hyponatremic, hypokalemic. His white cell count was high at 20,000, although surprisingly his prothrombin time, INR and APTT were all normal. He did have a CT scan of the abdomen and pelvis with oral and IV contrast, which showed the patient has developed prominent biliary ductal dilatation, now since his prior exam bleeding. There is also a pancreatic stent present. There is a 3 cm soft tissue density at the head of the pancreas, previously measured 2 cm. This could indicate the tumor at the head of the pancreas versus enlargement of the pancreas from pancreatitis, although no significant edema is present to suggest acute pancreatitis. He has also supraumbilical ventral abdominal hernia containing segment of the colon without evidence of bowel obstruction or inflammation. He was seen in consultation by the solar field service technician and he underwent ERCP with sludge and stone removal. We did treat him with IV antibiotic and also was started on alcohol withdrawal protocol and it is actually his liver enzymes and bilirubin came down dramatically. His white cell count also came down from 28,000 to 13,000. Unfortunately, he continued to complain of abdominal pain, mostly in the right lower quadrant, so I did repeat the CT scan of the abdomen and pelvis with IV contrast, which showed ____ complex appearing fluid or blood products in the posterior pelvis and also minimally of the liver, greater inferiorly as described with ____ although mild enhancement at the periphery concerning for peritonitis infected fluid collection. There is more complex appearing density at the tail of the pancreas, although smaller size of previously seen cystic lesion. There is also pneumophila, increased caliber of the common bile duct, at which there is biliary stent distally, also small caliber stent in the proximal ____ of ventral hernia ____ abdomen contains partial anterior wall of the mid transverse colon. There are some new patchy foci of ground glass density at the visualized lung base bilaterally and therefore, he was evaluated again by the solar field service technician as well as the surgical team. Dr. Cole did not recommend any further evaluation and recommended the patient can be discharged. The same recommendations was done by the solar field service technician and therefore, the patient was discharged home after confirming that his COVID test was negative. PHYSICAL EXAMINATION: General: When I saw him this afternoon, he was sitting slightly propped up in bed, in no apparent respiratory distress and he was pale, jaundiced. No cyanosis or thyromegaly. No jugular venous distention. No limb edema. VITAL SIGNS: His heart rate was 69, blood pressure 148/67, his temperature was 97.6, respiratory rate was 18 and oxygen saturation was 97%. HEAD, EYES, EARS, NOSE AND THROAT: Normocephalic, atraumatic. NECK: Supple. HEART: Showed normal first and second heart sounds. No gallop, rub or murmur. CHEST: Clear to auscultation. No crepitation or rhonchi. ABDOMEN: Slight distended with a midline incisional hernia, easily reducible. He continued to have some tenderness in the right lower quadrant. There is no guarding or rigidity. No organomegaly. All hernial orifice intact. Bowel sounds normal. NEUROLOGIC: He is awake, alert, responding appropriately. All cranial nerves intact. EXTREMITIES: He moves extremities without difficulty. LABORATORY DATA: His lab work this morning showed a serum sodium 132, potassium 4, chloride 96, bicarbonate 28, anion gap of 8, BUN 8, creatinine 0.9, estimated GFR was 87 mL per minute. His glucose was 156, calcium was 9.1. Total bilirubin is down to 2.9 from high of 17 mg. His liver enzymes have almost normalized His AST is normal at 31, ALT is 69 and alkaline phosphatase were 322 down from 830. His CA 19-9 was done twice and was on the upper limit of normal 36 and 43 and his serum lipase was consistently normal. His white cell count was down to 13,600, hemoglobin 9.5, hematocrit 28, MCV 94 and platelet count of 119,000. His prothrombin time and INR are within normal limits. DISCHARGE MEDICATIONS: He was discharged home with home health to continue on Augmentin 875 mg 1 tablet twice a day for 7 days, OxyContin 10 mg twice a day and oxycodone immediate release 5 mg every 6 hours. He should continue his aspirin 81 mg once a day, Plavix 75 mg once a day, diltiazem 240 mg once a day, Nexium 40 mg once a day, Lantus insulin 20 units at bedtime. He is also on multivitamin 1 tablet once a day and Chantix 1 mg p.o. b.i.d. FINAL DISCHARGE DIAGNOSES: 1. Obstructive jaundice due to occlusion of the Wallstent with stones and sludge, status post endoscopic retrograde cholangiopancreatography and extraction. His liver enzymes are trending down and almost normalized. 2. Chronic calcific pancreatitis; however, his serum lipase and amylase were consistently normal. 3. Type 2 diabetes mellitus, reasonably controlled. 4. Hypertension. 5. Chronic obstructive pulmonary disease. 6. Chronic alcoholism. 7. Nicotine dependence. 8. Right lower quadrant pain with new fluid collection, for which he was seen by the solar field service technician and the surgical team and they recommended conservative management. The patient will be discharged home with home health to continue on following medications. He should follow with his primary care physician as well as the solar field service technician. AUSTIN ESPINOZA MD DR: ANAHY/niranjan JOB#: [id number] / [id number]
== END 2019-07-13 14:50 | disposition home health service (06) | DRG 444 ==
LOC: 4 NORTH 09:10 → 1 WEST ICU 07-12 17:41
PROVIDERS: ADMIT Internal Medicine; ATTEND Internal Medicine
PROC: 0FC98ZZ Extirpation of Matter from Common Bile Duct, Via Natural or Artificial Opening Endoscopic (ICD-10-PCS; principal; 2019-07-08 16:00)
DX: K80.11 Calculus of gallbladder with chronic cholecystitis with obstruction (principal); E43 Unspecified severe protein-calorie malnutrition; K86.1 Other chronic pancreatitis; E87.1 Hypo-osmolality and hyponatremia; K83.09 Other cholangitis; R18.8 Other ascites; K57.90 Diverticulosis of intestine, part unspecified, without perforation or abscess without bleeding; D49.0 Neoplasm of unspecified behavior of digestive system; E11.9 Type 2 diabetes mellitus without complications; E87.6 Hypokalemia; F10.20 Alcohol dependence, uncomplicated; F17.210 Nicotine dependence, cigarettes, uncomplicated; I10 Essential (primary) hypertension; I25.10 Atherosclerotic heart disease of native coronary artery without angina pectoris; J44.9 Chronic obstructive pulmonary disease, unspecified; K21.9 Gastro-esophageal reflux disease without esophagitis; K43.9 Ventral hernia without obstruction or gangrene; K76.0 Fatty (change of) liver, not elsewhere classified; N32.89 Other specified disorders of bladder; Z80.3 Family history of malignant neoplasm of breast; Z82.49 Family history of ischemic heart disease and other diseases of the circulatory system; Z86.73 Personal history of transient ischemic attack (TIA), and cerebral infarction without residual deficits; Z90.49 Acquired absence of other specified parts of digestive tract; Z96.641 Presence of right artificial hip joint; Z96.659 Presence of unspecified artificial knee joint; Z20.828 Contact with and (suspected) exposure to other viral communicable diseases; Z68.24 Body mass index [BMI] 24.0-24.9, adult
CPT/HCPCS: 36415; 43264; 74177; 74328; 80053; 82150; 82962; 83690; 83735; 85025; 85027; 85610; 86301; 87635; C1726; C1757; C9113; J1170; J1815; J2543; J2704; J3010; J3411; J3475; J3480; J3490; J7030; J7120; Q9967; G0378

== ENCOUNTER → 2020-07-20 | Day surgery (SDC) | payer BC ==
[~2020-07-20] MED LIST changes: +AMOX1TAB61 PO; +HYDROmorphone 2 MG/ML VIAL IVP PRN; +INSU100I15 SQ; +INSULIN LISPRO 100 UNIT/ML 3ML VIAL for OP,RR ONLY. SQ ONE; +INSULIN LISPRO 100 UNIT/ML 3ML VIAL for OP,RR ONLY. SQ PRN; +IOHEXOL 300 MG/ML 100ML VIAL. ONE; +IV RINGERS,LACTATED 1000ML 1,000 ML IV SCH; +MORPHINE SULFATE 2 MG/ML VIAL. IVP PRN; +PROCHLORPERAZINE 10 MG/2 ML VIAL. IVP PRN; +fentaNYL PF VIAL 100 MCG/2 ML VIAL IVP PRN; +insulin
[2020-07-20 08:51] VITALS: BP 150/72
--- NOTE | 2020-07-20 14:52 | RAD ---
DG ERCP ENDO BILIARY DUCTAL SYS History: Reason: CLOGGED STENT, STENT REMOVAL,BALLOON SWEEP / Spl. Instructions: CHOLANGIOGRAM DONE. / History: Comparison: July 08, 2019 Technique/findings: Fluoroscopy performed during ERCP. Dilated common bile duct. Removal of stent. See procedure note for further details. Fluoroscopy time: 2 minutes 44 seconds. Number of fluoroscopic images: 7 Impression: 1. Fluoroscopy provided during ERCP. Electronically signed by: Giovanny Ross DO (07/20/2020 2:49 PM) [id number]
== END | disposition home or self-care (01) ==
LOC: ENDOS 06:09
PROVIDERS: ATTEND Internal Medicine Gastroenterology
DX: T85.590A Other mechanical complication of bile duct prosthesis, initial encounter (principal); R17 Unspecified jaundice; K83.8 Other specified diseases of biliary tract; I10 Essential (primary) hypertension; K21.9 Gastro-esophageal reflux disease without esophagitis; J44.9 Chronic obstructive pulmonary disease, unspecified; M19.90 Unspecified osteoarthritis, unspecified site; E11.9 Type 2 diabetes mellitus without complications; F32.9 Major depressive disorder, single episode, unspecified; F41.9 Anxiety disorder, unspecified; F17.210 Nicotine dependence, cigarettes, uncomplicated; Z20.822 Contact with and (suspected) exposure to COVID-19; Z90.49 Acquired absence of other specified parts of digestive tract; Z98.890 Other specified postprocedural states; Z79.899 Other long term (current) drug therapy; Z79.82 Long term (current) use of aspirin; Z72.89 Other problems related to lifestyle; Z88.8 Allergy status to other drugs, medicaments and biological substances; X58.XXXA Exposure to other specified factors, initial encounter; Y93.89 Activity, other specified; Y92.89 Other specified places as the place of occurrence of the external cause; Y99.8 Other external cause status
CPT/HCPCS: 43275; 74328; 82962; 87426; C1769; J1815; Q9967; 43264